=== PATIENT | male | born 1940 | race Caucasian/White ===

== ENCOUNTER 2016-04-18 15:16 | Inpatient (IN) ==
--- NOTE | 2016-04-18 15:46 | Emergency Department Note ---
Disposition Clinical Impression: Pneumothorax on right, Hydrothorax Disposition: Admitted As Inpatient Condition: Fair Time of Disposition: 18:56 General Adult HPI - General Chief complaint: ED Recheck/Abnormal Lab/Rx Stated complaint: Positive Chest Xray From Dr. Quevedo Time Seen by Provider: 04/18/16 15:38 Source: patient, family Mode of arrival: ambulatory Limitations: no limitations Nursing Notes Reviewed: Yes Vital Signs Reviewed: Yes - History of Present Illness HPI Narrative: Patient is a 75-year-old male who presents to [facility] ED with a chief complaint of shortness of breath. States his symptoms have been ongoing for the last 2 weeks or so. He has had upper respiratory type symptoms and his states he coughs so severely at night that he almost passes out. He was seen by pulmonology [address] of his chest was ordered. It would called earlier today by pulmonology to come to the emergency Department since he has a right-sided hydropneumothorax. Patient's oxygen saturations were 95% on room air. He has not on any oxygen at home. He has COPD but has never been a smoker. 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 Onset (ago): week(s) Radiation: non-radiation Pain Severity: mild Pain Scale: 3 Improves with: nothing Worsens with: nothing Associated symptoms: Reports: cough, shortness of breath Treatments Prior to Arrival: none - Related Data Home Medications Medication Instructions Recorded Confirmed Aspirin [Adult Low Dose Aspirin EC] 81 mg PO QAM 03/21/15 04/18/16 Ferrous Sulfate 324 mg PO QPM 03/21/15 04/18/16 Furosemide [Lasix] 40 mg PO BID 03/21/15 04/18/16 Insulin Glargine,Hum.rec.anlog 30 unit SQ HS 03/21/15 04/18/16 [Lantus Solostar] Lisinopril [Zestril] 5 mg PO QAM 03/21/15 04/18/16 Metoprolol [Lopressor] 50 mg PO BID 03/21/15 04/18/16 Potassium Chloride [K-Tab ER] 10 meq PO QAM 03/21/15 04/18/16 Pravastatin Sodium [Pravachol] 80 mg PO QPM 03/21/15 04/18/16 Zinc Acetate [Galzin] 50 mg PO QAM 03/21/15 04/18/16 Glucagon,Human Recombinant 1 mg IJ ONCE PRN 04/18/16 04/18/16 [Glucagon Emergency Kit] Insulin LISPRO [Humalog Kwikpen 10 unit SQ TIDWM 04/18/16 04/18/16 U-100] Metolazone [Zaroxolyn] 2.5 mg PO Q48H 04/18/16 04/18/16 Multivitamin [Multi-Day Vitamins] 1 each PO DAILY 04/18/16 04/18/16 Tramadol HCl [Tramadol HCl] 50 mg PO QID PRN 04/18/16 04/18/16 Allergies Allergy/AdvReac Type Severity Reaction Status Date / Time clopidogrel [From Plavix] AdvReac Itching Verified 04/18/16 15:19 All systems ED: reviewed and negative except as stated. Past Medical History - Past Medical History Attestation: Yes The following information was validated with the patient. Source: patient Medical history: Reports: atrial fibrillation, CHF, COPD, coronary artery disease, diabetes, hyperlipidemia, hypertension, myocardial infarction, valvular heart disease Surgical history: Reports: angioplasty/stent, heart valve replacement, pacemaker /AICD Psychiatric history: Reports: depression - Social History Smoking Status: Never smoker Smokeless Tobacco Status: No Alcohol use: Reports: none Drug use: Reports: none Physical Exam - General Limitations: no limitations General appearance: alert, in no apparent distress - Head Head exam: atraumatic, normocephalic, normal inspection - Eye Eye exam: Present: normal appearance, PERRL, EOMI - ENT ENT exam: normal exam, normal oropharynx, mucous membranes moist - Neck Neck exam: Present: normal inspection, full ROM, trachea midline - Chest Chest inspection: Present: normal inspection, symmetric chest wall rise - Respiratory Respiratory exam: Present: other (Decreased R sided breath sounds) - Cardiovascular Cardiovascular exam: Present: regular rate, normal rhythm, normal heart sounds - Abdominal Exam Abdominal exam: Present: soft, Non-Tender. Absent: tenderness, distention, guarding, rebound, rigidity - Extremities Exam Extremities exam: Present: normal inspection, full ROM. Absent: tenderness, pedal edema - Back Exam Back exam: Present: normal inspection, full ROM. Absent: tenderness - Neurological Exam Neurological exam: Present: alert, oriented X3 - Psychiatric Psychiatric exam: Present: normal affect, normal mood - Skin Skin exam: Present: warm, dry, intact, normal color Course Course Narrative: Patient seen and examined. Right-sided hydropneumothorax. He does have decreased right sided lung sounds. I spoke with certified residential medication aide Dr. Orozco who states that patient needs a chest tube and needs to be admitted to the hospitalist service. He will need a pulmonary consult and probable cardiothoracic surgeon consult after admission. - Reevaluation(s) Reevaluation #1: Right-sided 32-Sud[place] chest tube was placed in the fourth intercostal space, anterior axillary line. Versed and fentanyl was ordered for patient comfort. The patient tolerated procedure well. Over 1 L of straw-colored fluid returned. Postprocedure x-ray ordered. I spoke with hospitalist Dr. jA who has accepted patient for admission. Time: 18:54 Vital Signs Temperature 97.4 F L 04/18/16 15:19 Pulse Rate 73 04/18/16 15:19 Respiratory Rate 20 04/18/16 15:19 Blood Pressure 141/82 04/18/16 15:19 O2 Sat by Pulse Oximetry 95 04/18/16 15:19 Temperature 97.4 F L 04/18/16 15:19 Pulse Rate 70 04/18/16 17:33 Respiratory Rate 14 04/18/16 18:22 Blood Pressure 129/60 04/18/16 18:22 O2 Sat by Pulse Oximetry 98 04/18/16 17:33 Oxygen Delivery Oxygen Delivery Nasal Cannula Procedures - Chest Tube Chest Tube 1 Chest Tube Location: anterior axillary line Size of Tube (cm): 32 Chest Tube Prep: betadine prep, sterile drapes applied Local Anesthetic: lidocaine 1% Amount of Anesthesia Used (mL): 10 Incision Made With: #10 blade Post Procedure: sutured to skin, sterile dressing applied Tube Drainage: fluid Amount of Initial Drainage (cc's): 1,000 Post Procedure CXR?: Yes Patient Tolerated Procedure: Yes Medical Decision Making - Medical Records Medical records reviewed: Yes I reviewed the patient's medical records. - Lab Data Lab results reviewed: Yes I reviewed the patient's lab results. Result diagrams: 04/18/16 15:50 04/18/16 15:50 Lab Results 04/18/16 04/18/16 04/18/16 Range/Units 15:50 15:50 15:50 WBC 6.8 (4.3-11.1) K/mcL RBC 4.12 L (4.19-5.50) M/mcL Hgb 12.8 L (12.9-16.9) g/dL Hct 38.1 (37.5-50.1) % MCV 92.5 (83.0-100.0) fL MCH 31.1 (28.0-33.3) pg MCHC 33.6 (31.6-35.5) g/dL RDW 15.7 H (11.5-14.5) % Plt Count 171 (140-400) K/mcL MPV 10.8 (9.4-12.4) fL Immature Gran % 0.3 (0-4) % Seg Neutrophils % 59.2 % Lymphocytes % 26.7 % Monocytes % 9.2 % Eosinophils % 4.0 % Basophils % 0.6 % Neutrophils # 4.0 (1.6-8.9) K/mcL Lymphocytes # 1.8 (0.6-4.6) K/mcL Monocytes # 0.6 (0.0-1.3) K/mcL Eosinophils # 0.3 (0.0-0.6) K/mcL Basophils # 0.0 (0.0-0.2) K/mcL PT 12.4 H (9.4-12.1) Seconds INR 1.1 APTT 32.9 (26.0-36.0) Seconds Sodium 139 (136-145) mEq/L Potassium 4.5 (3.5-4.5) mEq/L Chloride 102 (98-109) mEq/L Carbon Dioxide 26 (19-29) mEq/L BUN 42 H (8-26) mg/dL Creatinine 1.46 H (0.72-1.25) mg/dL Est GFR ( Amer) 57 L (> 60) Est GFR (Non-Af Amer) 47 L (> 60) BUN/Creatinine Ratio 29 H (6-26) Glucose 116 H (70-99) mg/dL Calculated Osmolality 299 (280-300) Calcium 9.7 (8.6-10.8) mg/dL Troponin I (0-0.03) ng/mL 04/18/16 Range/Units 15:50 WBC (4.3-11.1) K/mcL RBC (4.19-5.50) M/mcL Hgb (12.9-16.9) g/dL Hct (37.5-50.1) % MCV (83.0-100.0) fL MCH (28.0-33.3) pg MCHC (31.6-35.5) g/dL RDW (11.5-14.5) % Plt Count (140-400) K/mcL MPV (9.4-12.4) fL Immature Gran % (0-4) % Seg Neutrophils % % Lymphocytes % % Monocytes % % Eosinophils % % Basophils % % Neutrophils # (1.6-8.9) K/mcL Lymphocytes # (0.6-4.6) K/mcL Monocytes # (0.0-1.3) K/mcL Eosinophils # (0.0-0.6) K/mcL Basophils # (0.0-0.2) K/mcL PT (9.4-12.1) Seconds INR APTT (26.0-36.0) Seconds Sodium (136-145) mEq/L Potassium (3.5-4.5) mEq/L Chloride (98-109) mEq/L Carbon Dioxide (19-29) mEq/L BUN (8-26) mg/dL Creatinine (0.72-1.25) mg/dL Est GFR ( Amer) (> 60) Est GFR (Non-Af Amer) (> 60) BUN/Creatinine Ratio (6-26) Glucose (70-99) mg/dL Calculated Osmolality (280-300) Calcium (8.6-10.8) mg/dL Troponin I 0.02 (0-0.03) ng/mL - Radiology Data Radiology results reviewed: Yes I reviewed the patient's radiology results. - EKG Data EKG #1 EKG attestation: Yes I reviewed and interpreted this EKG. EKG results narrative: EKG done at 1540 shows an electronic atrial paced and ventricular paced rhythm. There appears to be some depression in 3 and aVF no acute ST elevation. Attestation Statement - Attestation Attestation: I examined this patient and my medical decision-making was reviewed with the SLASHER/PA/Advanced Practice Nurse/Resident Physician. I agree with the documented findings, disposition and treatment plan as described except to the extent set forth below. Patient emergency department with an abnormal chest CT. Patient was sent in by his certified residential medication aide because he had a CT scan that showed hydropneumothorax. On exam he has diminished breath sounds on the right side. Hemodynamic stable. Satting well on room air. Plan. Chest tube was placed by Dr. Oakley with my constant supervision. X-ray pending. Patient will be admitted. Patient admitted. Chest tube more inferior than we would like but draining well so we will not reposition. 30 minutes of critical care exclusive of separately billable procedures.
[2016-04-18 15:58] LABS: Basophils % 0.6 %; Eosinophils # 0.3 K/mcL (0.0-0.6); Hematocrit 38.1 % (37.5-50.1); Hemoglobin 12.8 g/dL (12.9-16.9); Immature Granulocytes % 0.3 % (0-4); Lymphocytes # 1.8 K/mcL (0.6-4.6); Lymphocytes % 26.7 %; Mean Corpuscular HGB Conc 33.6 g/dL (31.6-35.5); Mean Corpuscular Hemoglobin 31.1 pg (28.0-33.3); Mean Corpuscular Volume 92.5 fL (83.0-100.0); Mean Platelet Volume 10.8 fL (9.4-12.4); Monocytes # 0.6 K/mcL (0.0-1.3); Monocytes % 9.2 %; Platelet Count 171 K/mcL (140-400); Red Blood Count 4.12 M/mcL (4.19-5.50); Red Cell Distribution Width 15.7 % (11.5-14.5); Segmented Neutrophils % 59.2 %
[2016-04-18 16:11] LABS: Calcium 9.7 mg/dL (8.6-10.8); Potassium 4.5 mEq/L (3.5-4.5)
[2016-04-18] MEDS ORDERED: *HR* FentaNYL (PF) 100 MCG/2 ML VIAL IVP ONE ×2 (16:15→16:16)
[2016-04-18] MEDS ORDERED: *HR* Midazolam HCl 2 MG/2 ML VIAL IVP ONE ×2 (16:16→16:17)
[2016-04-18 16:19] LABS: INR 1.1; Prothrombin Time 12.4 Seconds (9.4-12.1)
[2016-04-18 16:21] LABS: Activated Partial Thrombo Time 32.9 Seconds (26.0-36.0)
--- NOTE | 2016-04-18 20:34 | Internal Med History&Physical ---
<Darren Rosa - Last Filed: 04/18/16 21:55> Date of Encounter: 04/18/16 Time of Encounter: 20:30 Assessment and Plan (1) Hydropneumothorax Current visit: Yes Status: Acute As seen on recent CT chest, patient did have chest tube placed in ER and 1 L straw-colored fluid removed Follow up CXR did demonstrate inferior placement of tube, and recommended pulling back 6 cm Consult pulmonology for tube management, no need adjustment acutely as patient has symptomatically improved and has minimal discomfort Obtain pleural fluid studies including cytology, gram stain/culture, amylase, LDH, protein, trigs Supportive measures with anti-emetics and analgesia Consider cardiothoracic surgery consult if patient desires senior living control with pleurodesis (2) Paroxysmal a-fib Current visit: No Status: Chronic He does have h/o pacemaker, ablation and appendage resection Patient elected not to continue on anticoagulation given episode of GI bleeding Will continue home rate control drug of Metoprolol (3) COPD (chronic obstructive pulmonary disease) Current visit: Yes Status: Chronic Will start on supplemental oxygen; he does not use at home but may try to qualify prior to discharge Initiate breathing treatments and nebulizers as needed Qualifiers: Qualified Code(s): J44.9 - Chronic obstructive pulmonary disease, unspecified (4) Hypertension Current visit: Yes Status: Chronic Blood pressures stable since admission Will hold home Lisinopril for now due to renal insufficiency, but continue Metoprolol Qualifiers: Qualified Code(s): I10 - Essential (primary) hypertension (5) Diastolic CHF Current visit: Yes Status: Chronic Does not appear to be in clinical exacerbation Continue on home dose of Lasix and Metolazone Monitor I/O's, obtain daily weights Qualifiers: Qualified Code(s): I50.30 - Unspecified diastolic (congestive) heart failure (6) CKD (chronic kidney disease) stage 3, GFR 30-59 ml/min Current visit: Yes Status: Chronic Patient is unsure of his baseline kidney dysfunction but states he is making adequate urine Will avoid nephrotoxic agents for now, as Cr does appear slightly elevated that baseline; Cr 1.46, baseline 1.2-1.3 (7) Insulin dependent diabetes mellitus Current visit: Yes Status: Chronic Holding home insulin dose Start on low dose SSI ACHS accuchecks A1c of 6.2 obtained last January (8) DVT prophylaxis Current visit: Yes Status: Acute Heparin 5000 units BID SQ Internal Medicine - H&P: HPI Chief complaint: Shortness of breath Admitted From: Home Plans for Post Hospital Care: Home History of present illness: Mr. Silver is a 75 year old male who presents to the emergency department after being sent in by his packer and carry out, Dr. Orozco, for a hydropneumothorax seen on CAT scan. Patient describes 2 weeks of progressive shortness of breath associated with a cough. He has noticed yellow sputum during this time and has also had chest pain while coughing, to the point where he almost passes out. He states that he has known about his recurrent right pleural effusion for about 6 months, but has never had it drained. He does have a history of COPD but is not on any oxygen or inhalers at home. Of note, he does have a significant cardiac history including [place] s/p 5 stents and mitral valve stenosis that was repaired with bioprosthetic valve replacement. He also has atrial fibrillation and has underwent both ablation and left atrial appendage resection. He states he was previously on Coumadin for 14 months but had an episode of GI bleed and had to stop it. He currently has a pacemaker. Patient states that in the emergency department after having the chest tube placed and 1 L straw-colored fluid removed, he experienced significant relief of his shortness of breath. He denies any fever, nausea, vomiting, diarrhea. Past Med Surg Social Fam HX - Past Medical History Medical history: atrial fibrillation, CHF, COPD, coronary artery disease, diabetes, hyperlipidemia, hypertension, myocardial infarction, valvular heart disease Psychiatric history: depression - Past Surgical History Surgical History: angioplasty/stent, heart valve replacement, pacemaker/AICD - Social History Smoking Status: Never smoker Smokeless Tobacco Status: No Alcohol use: none Drug use: none - Family History Father Living Status: Hx Family Cardiac Disorders: Yes ([place]) Brother Living Status: Still Living Hx Family Cardiac Disorders: Yes Internal Medicine - H&P: Meds Aspirin [Adult Low Dose Aspirin EC] 81 mg PO QAM 03/21/15 [History] Ferrous Sulfate 324 mg PO QPM 03/21/15 [History] Furosemide [Lasix] 40 mg PO BID 03/21/15 [History] Insulin Glargine,Hum.rec.anlog [Lantus Solostar] 30 unit SQ HS 03/21/15 [History ] Lisinopril [Zestril] 5 mg PO QAM 03/21/15 [History] Metoprolol [Lopressor] 50 mg PO BID 03/21/15 [History] Potassium Chloride [K-Tab ER] 10 meq PO QAM 03/21/15 [History] Pravastatin Sodium [Pravachol] 80 mg PO QPM 03/21/15 [History] Zinc Acetate [Galzin] 50 mg PO QAM 03/21/15 [History] Glucagon,Human Recombinant [Glucagon Emergency Kit] 1 mg IJ ONCE PRN 04/18/16 [ History] Insulin LISPRO [Humalog Kwikpen U-100] 10 unit SQ TIDWM 04/18/16 [History] Metolazone [Zaroxolyn] 2.5 mg PO Q48H 04/18/16 [History] Multivitamin [Multi-Day Vitamins] 1 each PO DAILY 04/18/16 [History] Tramadol HCl [Tramadol HCl] 50 mg PO QID PRN 04/18/16 [History] Allergies clopidogrel [From Plavix] Adverse Reaction (Verified 04/18/16 15:19) Itching All Systems PM: A 10-system review of systems was performed and is negative for pertinent findings except as documented above in the HPI. - Constitutional Constitutional: anorexia (loss of appetite), no chills, no fever(s), no night sweats - EENT Eyes: no change in vision, no discharge, no pain, no photophobia Ears: no ear discharge, no ear pain, no tinnitus Nose, mouth and throat: no dysphagia, no nasal discharge, no neck pain, no sore throat - Cardiovascular Cardiovascular ROS IM: dyspnea, dyspnea on exertion, no chest pain, no diaphoresis, no lightheadedness, no palpitations, no syncope - Respiratory Respiratory: cough, dyspnea, excessive phlegm production, pain with cough, no wheezing - Gastrointestinal Gastrointestinal: no abdominal pain, no diarrhea, no hematemesis, no hematochezia, no melena, no nausea, no vomiting - Musculoskeletal Musculoskeletal ROS IM: no numbness, no tingling - Integumentary Integumentary IM: no rash, no unusual bruising - Neurological Neurological ROS: no confusion, no convulsions, no focal weakness, no numbness, no tingling, no tremor(s) - Hematologic/Lymphatic Hematologic/Lymphatic: no easy bruising - Constitutional Vitals: Temp Pulse Resp BP Pulse Ox 97.9 F 69 18 137/73 100 04/18/16 20:07 04/18/16 20:07 04/18/16 20:07 04/18/16 20:07 04/18/16 20:07 General appearance: Present: cooperative, pleasant, no acute distress, answers questions appropriately - Head Head exam: Present: atraumatic, normocephalic - Eye Eye exam: Present: PERRL, conjuntiva pink, sclera anicteric - Neck Neck exam general surgery: Present: supple, trachea midline. Absent: lymphadenopathy - Respiratory Respiratory exam: Present: decreased breath sounds (on right side). Absent: accessory muscle use, rales, rhonchi, wheezes - Cardiovascular Cardiovascular exam: Present: RRR, +S1, +S2. Absent: diastolic murmur, gallop, rubs, systolic murmur - GI/Abdominal GI/Abdominal exam: Present: normal bowel sounds, soft, no peritoneal signs. Absent: distended, tenderness - Extremities Exam Extremities exam: Present: pedal edema (2+ pitting), warm, radial pulses palpable and symetrical. Absent: calf tenderness, cyanotic - Neurological Exam Neurological exam: Present: alert, no focal deficits. Absent: facial droop, speech deficit - Skin Skin exam: Present: dry, intact Internal Med - H&P Results - Labs CBC & Chem 7: 04/18/16 15:50 04/18/16 15:50 <Yovany Parikh - Last Filed: 04/18/16 22:37> Date of Encounter: 04/18/16 All Systems PM: A 10-system review of systems was performed and is negative for pertinent findings except as documented above in the HPI. - Constitutional Vitals: Temp Pulse Resp BP Pulse Ox 97.9 F 69 16 137/73 94 L 04/18/16 20:07 04/18/16 20:07 04/18/16 22:25 04/18/16 20:07 04/18/16 22:25 General appearance: Present: cooperative, pleasant, no acute distress - Eye Eye exam: Present: EOMI, PERRL. Absent: scleral icterus Pupils: Present: normal accommodation - ENT ENT exam: Present: normal exam, normal oropharynx - Neck Neck exam general surgery: Present: full ROM, supple - Expanded Neck Exam Neck exam: Absent: carotid bruit - Respiratory Respiratory exam: Present: decreased breath sounds. Absent: respiratory distress - Cardiovascular Cardiovascular exam: Present: RRR, +S1, +S2. Absent: JVD, systolic murmur - GI/Abdominal GI/Abdominal exam: Present: soft. Absent: tenderness - Extremities Exam Extremities exam: Present: warm. Absent: calf tenderness, joint swelling - Back Exam Back exam: Absent: CVA tenderness (L), CVA tenderness (R) - Neurological Exam Neurological exam: Present: no focal deficits - Psychiatric Psychiatric exam: Present: normal affect, normal mood - Skin Skin exam: Present: dry, warm. Absent: rash Internal Med - H&P Results - Labs CBC & Chem 7: 04/18/16 15:50 04/18/16 15:50 - Diagnostic Studies Chest x-ray Status: image reviewed by me (hydropneumonthorax noted) CT scan - chest Status: image reviewed by me (large hydronpneumothorax noted on today's CT) - Attending Attestation I discussed the patient [place], PMH, ROS, lab data, and exam findings with Dr. Rosa. I then saw and evaluated patient independently as well. He feels much better since his chest tube placement. His only complaint is occasional pain at chest tube insertion site. He denies any fevers, productive cough, chills, or body aches. I requested Dr. Rosa order some plueral fluid analyses. We will also try to obtain cytology. He did have prior CABG and pacer insertion about 18 months ago, which puts him at risk for chylothorax. However, his pleural fluid was straw colored and not milky or bloody upon chest tube placement. Nonetheless, we will check triglyceride level in addition to routine labs, culture, and cytology. We will ask pulmonary to see patient in consult for chest tube management. Other than my comments noted above and exam findings noted, I agree with Dr. Rosa's assessment and plan.
[2016-04-18] MEDS ORDERED: *HR* Dextrose 50 % in Water (Syg) 50 ML SYRINGE IVP PRN (20:53)
[2016-04-18] MEDS ORDERED: Ondansetron ODT 4 MG TAB.RAPDIS SL PRN (20:53)
[2016-04-18] MEDS ORDERED: Acetaminophen 325 MG TABLET PO PRN (20:53)
[2016-04-18] MEDS ORDERED: Naloxone 0.4 MG/ML INJ IVP PRN (20:53)
[2016-04-18] MEDS ORDERED: D5% in Water 1,000 ML IV PRN (20:53)
[2016-04-18] MEDS ORDERED: Dextrose Gel 15 GM PO PRN ×2 (20:53)
[2016-04-18] MEDS: Insulin LISPRO 300 UNITS/3 ML VIAL SQ SCH (21:10)
[2016-04-18] MEDS ORDERED: Albuterol 2.5 MG/3 ML NEBULIZER IH PRN (21:15)
[2016-04-18] MEDS: metOLazone 2.5 MG TABLET PO SCH (21:18)
[2016-04-18] MEDS: *HR* HYDROcodone/Acet 5/325 mg TABLET PO PRN (21:19)
[2016-04-18] MEDS: Budesonide/Formoterol 160/4.5 MDI IH SCH (22:25)
[2016-04-18] MEDS: Ipratropium/Albuterol Neb 3 ML IH SCH (22:25)
[2016-04-18 22:37] LABS: Lactate Dehydrogenase 153 Units/L (159-327); Total Protein 7.4 g/dL (6.0-8.3)
[2016-04-19] MEDS: *HR* Morphine 2 MG/ML SYRINGE IVP PRN ×3 (00:50→18:37)
[2016-04-19] MEDS: Ipratropium/Albuterol Neb 3 ML IH SCH ×4 (03:30→22:00)
[2016-04-19] MEDS: *HR* HYDROcodone/Acet 5/325 mg TABLET PO PRN ×4 (05:02→20:26)
[2016-04-19 05:46] LABS: Basophils % 0.4 %; Eosinophils # 0.2 K/mcL (0.0-0.6); Eosinophils % 2.9 %; Hematocrit 38.3 % (37.5-50.1); Hemoglobin 12.2 g/dL (12.9-16.9); Immature Granulocytes % 0.3 % (0-4); Lymphocytes # 1.8 K/mcL (0.6-4.6); Lymphocytes % 24.7 %; Mean Corpuscular HGB Conc 31.9 g/dL (31.6-35.5); Mean Corpuscular Hemoglobin 29.9 pg (28.0-33.3); Mean Corpuscular Volume 93.9 fL (83.0-100.0); Mean Platelet Volume 10.7 fL (9.4-12.4); Monocytes # 0.6 K/mcL (0.0-1.3); Monocytes % 8.2 %; Neutrophils # 4.7 K/mcL (1.6-8.9); Platelet Count 167 K/mcL (140-400); Red Blood Count 4.08 M/mcL (4.19-5.50); Red Cell Distribution Width 15.6 % (11.5-14.5); Segmented Neutrophils % 63.5 %
[2016-04-19 06:11] LABS: Alanine Aminotransferase 9 Units/L (0-55); Albumin 3.2 g/dL (3.5-5.0); Albumin/Globulin Ratio 0.7 (1.1-2.2); Alkaline Phosphatase 79 Units/L (38-126); Aspartate Amino Transferase 27 Units/L (5-34); BUN/Creatinine Ratio 30 (6-26); Bilirubin,Total 1.2 mg/dL (0.2-1.2); Blood Urea Nitrogen 40 mg/dL (8-26); Calcium 9.3 mg/dL (8.6-10.8); Carbon Dioxide 26 mEq/L (19-29); Chloride 102 mEq/L (98-109); Globulin 4.5 g/dL (2.4-3.5); Glucose 113 mg/dL (70-99); Osmolality,Calculated 299 (280-300); Potassium 4.6 mEq/L (3.5-4.5); Sodium 139 mEq/L (136-145); Total Protein 7.7 g/dL (6.0-8.3); eGFR For African Americans > 60 (> 60); eGFR For Non-African Americans 53 (> 60)
[2016-04-19] MEDS: Insulin LISPRO 300 UNITS/3 ML VIAL SQ SCH ×4 (08:14→22:28)
[2016-04-19] MEDS: *HR* Heparin 5,000 UNIT/ML VIAL SQ SCH ×2 (08:19→18:11)
[2016-04-19] MEDS: Aspirin Enteric Coated 81 MG Tablet PO SCH (08:19)
--- NOTE | 2016-04-19 08:45 | Pulmonology Consult Note ---
Date of Encounter: 04/19/16 Time of Encounter: 08:41 Assessment and Plan (1) Abnormal CT scan, chest Current Visit: Yes Status: Acute I am unable to personally reviewed the chest CT at this time however her the description, a right hydropneumothorax was noted compression of the right lower lobe and right middle lobe as well as small nodular densities were described by the radiologist. The etiology of the right hydropneumothorax at this time is uncertain but differential diagnoses could include an entrapped lung following open heart surgery, an occasion to the bronchus (which seems unlikely), infectious and malignant disease (malignancy also seems unlikely). It best to have cardiothoracic surgery and on evaluation and further treatment since the patient may require thoracotomy. I will attempt to reaccessed the system for personal review of the imaging studies later today. Code(s): R93.8 - Abnormal findings on diagnostic imaging of other specified body structures SNOMED Code(s): 998118038 History of Present Illness Consult date: 04/19/16 Chief complaint: dyspnea History of present illness: The patient is a 75-year-old male admitted to the hospital at the request of his primary care physician for evaluation of progressive breathlessness. In addition to progressive breathlessness the patient is also noted cough productive of secretions. He denied concurrent headache myalgia arthralgia fevers or chills. For further evaluation of his complaints, a chest CT scan to my understanding was obtained through [facility]. The scan revealed a right hydropneumothorax hence the patient was instructed to proceed to the emergency room at [place] for further evaluation. A chest tube was placed into the right hemithorax and a persistent hydropneumothorax was noted. An air leak has been described by the nursing staff and was verified during my evaluation ( expiratory phase only). Pulmonary consultation was requested for evaluation. I reviewed the situation with Dr. Jose David Prather who will also see the patient. I have reviewed the chart and note that this patient although billed as having COPD he is a lifelong nonsmoker. Is not have any significant occupational exposures that would predispose the development of obstructive lung disease. His most significant history is that of cardiovascular disease. He underwent open heart surgery at [facility] in 2013 ultimately included maze procedure mitral valve replacement Ronen-Wisdom valve, placement of biventricular pacemaker. Patient was last hospitalized during the winter of 2015 early part of 2017. There are no chest radiographs dating back to that time for review and comparison to the current chest imaging. Past Med Surg Social Fam HX - Past Medical History Medical history: atrial fibrillation, CHF, COPD, coronary artery disease, diabetes, hyperlipidemia, hypertension, myocardial infarction, valvular heart disease Psychiatric history: depression - Past Surgical History Surgical History: angioplasty/stent, heart valve replacement, pacemaker/AICD - Social History Smoking Status: Never smoker Smokeless Tobacco Status: No Alcohol use: none Drug use: none - Family History Father Living Status: Hx Family Cardiac Disorders: Yes (ND) Brother Living Status: Still Living Hx Family Cardiac Disorders: Yes Medications and Allergies Aspirin [Adult Low Dose Aspirin EC] 81 mg PO QAM 03/21/15 [History] Ferrous Sulfate 324 mg PO QPM 03/21/15 [History] Furosemide [Lasix] 40 mg PO BID 03/21/15 [History] Insulin Glargine,Hum.rec.anlog [Lantus Solostar] 30 unit SQ HS 03/21/15 [History ] Lisinopril [Zestril] 5 mg PO QAM 03/21/15 [History] Metoprolol [Lopressor] 50 mg PO BID 03/21/15 [History] Potassium Chloride [K-Tab ER] 10 meq PO QAM 03/21/15 [History] Pravastatin Sodium [Pravachol] 80 mg PO QPM 03/21/15 [History] Zinc Acetate [Galzin] 50 mg PO QAM 03/21/15 [History] Glucagon,Human Recombinant [Glucagon Emergency Kit] 1 mg IJ ONCE PRN 04/18/16 [ History] Insulin LISPRO [Humalog Kwikpen U-100] 10 unit SQ TIDWM 04/18/16 [History] Metolazone [Zaroxolyn] 2.5 mg PO Q48H 04/18/16 [History] Multivitamin [Multi-Day Vitamins] 1 each PO DAILY 04/18/16 [History] Tramadol HCl [Tramadol HCl] 50 mg PO QID PRN 04/18/16 [History] Allergies clopidogrel [From Plavix] Adverse Reaction (Verified 04/18/16 15:19) Itching All Systems: A 10-system review of systems was performed and is negative for pertinent findings except as documented above in the HPI. - Constitutional Constitutional: as per HPI - Cardiovascular Cardiovascular: as per HPI - Respiratory Respiratory: as per HPI Physical Examination Vital Signs: Vital Signs, Last 4 Hours Temp Pulse Resp BP Pulse Ox 04/19/16 07:50 70 94 L 04/19/16 07:17 97.9 F 70 20 134/63 94 L 04/19/16 04:59 98.0 F 69 18 133/69 95 General appearance: no acute distress Eyes: nonicteric ENT: oropharynx moist Neck: supple Auscultation: right: diminished breath sounds (Right chest tube, air leak noted during expiration and coughing.) Cardiovascular: regular rate and rhythm, other (Paced rhythm healed sternotomy.) Gastrointestinal: normoactive bowel sounds, non-distended Integumentary: normal, other (Venous stasis changes both lower extremities.) Extremities: no cyanosis Musculoskeletal: no deformities normal mental status, non-focal exam Results - Laboratory Findings CBC and BMP: 04/19/16 05:20 04/19/16 05:20 PT/INR, D-dimer PT 12.4 Seconds (9.4-12.1) H 04/18/16 15:50 Abnormal lab findings: Abnormal lab results RBC 4.08 M/mcL (4.19-5.50) L 04/19/16 05:20 Hgb 12.2 g/dL (12.9-16.9) L 04/19/16 05:20 RDW 15.6 % (11.5-14.5) H 04/19/16 05:20 PT 12.4 Seconds (9.4-12.1) H 04/18/16 15:50 Potassium 4.6 mEq/L (3.5-4.5) H 04/19/16 05:20 BUN 40 mg/dL (8-26) H 04/19/16 05:20 Creatinine 1.33 mg/dL (0.72-1.25) H 04/19/16 05:20 Est GFR (Non-Af Amer) 53 (> 60) L 04/19/16 05:20 BUN/Creatinine Ratio 30 (6-26) H 04/19/16 05:20 Glucose 113 mg/dL (70-99) H 04/19/16 05:20 POC Glucose 91 (58-89) H 04/18/16 20:33 Lactate Dehydrogenase 153 Units/L (159-327) L 04/18/16 22:16 Albumin 3.2 g/dL (3.5-5.0) L 04/19/16 05:20 Globulin 4.5 g/dL (2.4-3.5) H 04/19/16 05:20 Albumin/Globulin Ratio 0.7 (1.1-2.2) L 04/19/16 05:20 - Diagnostic Findings Chest x-ray: image reviewed - Clinical Findings Intake & Output: Intake & Output 04/18/16 04/19/16 04/19/16 23:59 07:59 15:59 Intake Total 200 / 200 Output Total 225 / 225 595 / 595 Balance -225 / -225 -395 / -395 Weight 96.6 kg 96.8 kg Consult Discharge Plan - Plan Referrals: Rambo Lama [Primary Care Provider] -
--- NOTE | 2016-04-19 10:05 | Cardiothoracic Consult Note ---
Date of Encounter: 04/19/16 Time of Encounter: 10:01 Assessment and Plan (1) Hydropneumothorax Current Visit: Yes Status: Acute The assessment and plan as outlined above was discussed with the patient and/or family members who expressed understanding and agreement. All questions were answered. The patient presented with a right hydropneumothorax. This is most likely due to congestive heart failure. I would check an echocardiogram, as it is been 3 months since his last cardiac echo. Another possibility would be mesothelioma, as the patient does have a history of an exposure to this asbestos. However, there are no signs of this on CT scan. The lung is stiff and may be difficult to reexpand. I would suck on the chest tube over the weekend. If the lung doesn' t reexpand, the patient could have talc inserted. However, if the lung does not reexpand his only option would be decortication. The patient states that he is adamantly opposed to further surgery. - History of Present Illness History of present illness: Mr. Silver is a 75 year old male History of present illness. Patient is a 75-year-old gentleman with a long cardiac history who presented with shortness of breath. CT scan revealed a right hydropneumothorax. A chest tube was inserted in the emergency room. This is drained 1600 mL. Chest x-ray done after this reveals that the fluid is gone. The chest tube is low but is in the pleural space. The lung has not reexpanded, but probably is stiff from prolonged collapse. Past medical history is notable for COPD. He did have open heart surgery at [facility] in 2013. Apparently this was coronary artery bypass grafting and a mitral valve replacement or ring. Shortly after this, he had placement of a pacemaker and defibrillator. He does have a history of atrial fibrillation and congestive heart failure. He does have diabetes on insulin. He also has hyperlipidemia and hypertension. He is also been treated for depression. He has no known allergies. Medications include insulin, but he is not on any blood thinner. Social history. He lives in [facility] with his , who is in good health. Does not smoke and does not drink. Family history is positive for coronary artery disease. Review of systems is notable for peripheral edema in his legs. Past Med Surg Social Fam HX - Past Medical History Medical history: atrial fibrillation, CHF, COPD, coronary artery disease, diabetes, hyperlipidemia, hypertension, myocardial infarction, valvular heart disease Psychiatric history: depression - Past Surgical History Surgical History: angioplasty/stent, heart valve replacement, pacemaker/AICD - Social History Smoking Status: Never smoker Smokeless Tobacco Status: No Alcohol use: none Drug use: none - Family History Father Living Status: Hx Family Cardiac Disorders: Yes ([place]) Brother Living Status: Still Living Hx Family Cardiac Disorders: Yes Medications and Allergies Aspirin [Adult Low Dose Aspirin EC] 81 mg PO QAM 03/21/15 [History] Ferrous Sulfate 324 mg PO QPM 03/21/15 [History] Furosemide [Lasix] 40 mg PO BID 03/21/15 [History] Insulin Glargine,Hum.rec.anlog [Lantus Solostar] 30 unit SQ HS 03/21/15 [History ] Lisinopril [Zestril] 5 mg PO QAM 03/21/15 [History] Metoprolol [Lopressor] 50 mg PO BID 03/21/15 [History] Potassium Chloride [K-Tab ER] 10 meq PO QAM 03/21/15 [History] Pravastatin Sodium [Pravachol] 80 mg PO QPM 03/21/15 [History] Zinc Acetate [Galzin] 50 mg PO QAM 03/21/15 [History] Glucagon,Human Recombinant [Glucagon Emergency Kit] 1 mg IJ ONCE PRN 04/18/16 [ History] Insulin LISPRO [Humalog Kwikpen U-100] 10 unit SQ TIDWM 04/18/16 [History] Metolazone [Zaroxolyn] 2.5 mg PO Q48H 04/18/16 [History] Multivitamin [Multi-Day Vitamins] 1 each PO DAILY 04/18/16 [History] Tramadol HCl [Tramadol HCl] 50 mg PO QID PRN 04/18/16 [History] Allergies clopidogrel [From Plavix] Adverse Reaction (Verified 04/18/16 15:19) Itching All Systems Review: A 10-system review of systems was performed and is negative for pertinent findings except as documented above in the HPI. Physical Examination Vital Signs, Last 4 Hours Temp Pulse Resp BP Pulse Ox 04/19/16 07:50 70 94 L 04/19/16 07:17 97.9 F 70 20 134/63 94 L He is blind in his right eye. No oral lesions. Neck is supple. No thyromegaly or carotid bruits. Lungs have decreased breath sounds on the right side. He does have a chest tube in place which is drained 1600 mL of serosanguineous fluid. It does have a small air leak with cough. Heart is in an irregular rate and rhythm. He does have a 2/6 systolic murmur. His incision is healing well without signs of infection and the sternum is stable. Abdomen is benign. No tenderness rebound or guarding. Extremities have 2+ edema. 1+ pulses. Cranial nerves are intact, except for blindness in his right eye. Motor and sensory intact. Results 04/19/16 05:20 04/19/16 05:20 Lab Results, Last 24 hours 04/19/16 04/19/16 05:20 05:20 WBC 7.5 Hgb 12.2 L Hct 38.3 Plt Count 167 Sodium 139 Potassium 4.6 H Chloride 102 Carbon Dioxide 26 BUN 40 H Creatinine 1.33 H Glucose 113 H Calcium 9.3 Total Bilirubin 1.2 AST 27 ALT 9 Alkaline Phosphatase 79 Consult Discharge Plan - Plan Referrals: Amauri Lama MD [Partnered Physician] - 04/25/16 11:30 am
[2016-04-19] MEDS: Budesonide/Formoterol 160/4.5 MDI IH SCH ×2 (10:50→22:00)
--- NOTE | 2016-04-19 13:12 | Internal Med Progress Note ---
Date of Encounter: 04/19/16 Time of Encounter: 11:30 - Assessment and plan (1) Hydropneumothorax Current Visit: Yes Status: Acute Assessment and plan: Chronic on chart review NO re-expansion possibly from chronicity Send pleural fluid work up as lab/pathology reports that did not receive specimen Follow ECHO Send sputum culture Start patient on po Levaquin, he has cough with yellow phlegm and a history of COPD Follow work up Pain control Thoracic surgery and Pulmonolgy eval appreciated (2) CKD (chronic kidney disease) stage 3, GFR 30-59 ml/min Current Visit: Yes Status: Chronic Assessment and plan: Slight superimposed renal insufficiency GFR and Cr improved this morning from prior Continue to hold Lisinopril Continue home meds Avoid nephrotoxins (3) COPD (chronic obstructive pulmonary disease) Current Visit: Yes Status: Chronic Assessment and plan: Chronic stable, no wheezing on exam Duonebs prn O2 by [place] Qualifiers: COPD type: unspecified COPD Qualified Code(s): J44.9 - Chronic obstructive pulmonary disease, unspecified (4) Diastolic CHF Current Visit: Yes Status: Chronic Assessment and plan: Does not appear to be in clinical exacerbation Continue on home dose of Lasix and Metolazone Monitor I/O's, obtain daily weights Qualifiers: Congestive heart failure chronicity: chronic Qualified Code(s): I50.32 - Chronic diastolic (congestive) heart failure (5) Hypertension Current Visit: Yes Status: Chronic Qualifiers: Hypertension type: essential hypertension Qualified Code(s): I10 - Essential (primary) hypertension (6) Insulin dependent diabetes mellitus Current Visit: Yes Status: Chronic Assessment and plan: Continue SSI ACHS accuchecks A1c of 6.2 01/2016 (7) CAD (coronary artery disease) Current Visit: Yes Status: Chronic Assessment and plan: Chronic, stable, no Chest pain Continue home meds Qualifiers: Coronary Disease-Associated Artery/Lesion type: [place] artery [place] vs. transplanted heart: [place] heart Associated angina: without angina Qualified Code(s): I25.10 - Atherosclerotic heart disease of [place] coronary artery without angina pectoris (8) Paroxysmal a-fib Current Visit: Yes Status: Chronic Assessment and plan: Not on anticoagulation due to GI bleed (9) S/P MVR (mitral valve replacement) Current Visit: Yes Status: Chronic - Subjective Interval history: 75 Y/O M DNR-CCA-DNI Initial encounter Seen at bedside with spouse Patient with extensive cardiac history-Afib s/p AICD, CHFpEF, CAD s/pCABG 2013, s/p MVreplacement He also has COPD, CK D stage III, diabetes mellitus complaining complicated by nephropathy. Patient is admitted for management of incidentally discovered right hydropneumothorax. The patient endorses several days history of cough productive of yellow sputum previously. He denies fever or chills, sick contacts, syndromes. He has had shortness of breath with exertion. Since presentation patient has had chest tube placement, with no lung expansion. Thoracic surgery consulted this morning, recommendations are noted. Pulmonolgy has also been consulted Of note, patient adamantly refuses surgery. EMR review reveals no leukocytosis, hemoglobin stable at baseline, creatinine slightly elevated above baseline, liver function test is within normal limit. Of note, pleural fluid has not been received by the laboratory for work up Blood culture was sent on presentation - Constitutional Vitals: Temp Pulse Resp BP Pulse Ox 98.6 F 70 18 137/66 96 04/19/16 11:13 04/19/16 12:54 04/19/16 11:13 04/19/16 11:13 04/19/16 11:13 General appearance: Present: cooperative, A&O X 3, pleasant, no acute distress - Head Head exam: Present: atraumatic, normocephalic - Eye Eye exam: Present: PERRL, conjuntiva pink, sclera anicteric Pupils: Present: PERRL - Neck Neck exam general surgery: Present: supple, trachea midline. Absent: lymphadenopathy - Respiratory Respiratory exam: Present: decreased breath sounds (Right lung zone. Posterior chest tube). Absent: accessory muscle use, rales, rhonchi, wheezes Additional comments: Chest wall scar. PCM pocket clean , no hyperemia - Cardiovascular Cardiovascular exam: Present: RRR, +S1, +S2. Absent: diastolic murmur, gallop, rubs, systolic murmur - GI/Abdominal GI/Abdominal exam: Present: normal bowel sounds, soft, no peritoneal signs. Absent: distended, tenderness - Extremities Exam Extremities exam: Present: pedal edema (Trace, bilaterally), warm, radial pulses palpable and symetrical. Absent: calf tenderness, cyanotic Additional comments: Chronic venous stasis changes - Neurological Exam Neurological exam: Present: CN II-XII intact, oriented X3, no focal deficits. Absent: pronater drift, facial droop, speech deficit - Skin Skin exam: Present: dry, intact Internal Medicine: Result - Labs CBC & Chem 7: 04/19/16 05:20 04/19/16 05:20 Labs: Short CBC 04/19/16 Range/Units 05:20 WBC 7.5 (4.3-11.1) K/mcL Hgb 12.2 L (12.9-16.9) g/dL Hct 38.3 (37.5-50.1) % Plt Count 167 (140-400) K/mcL Neutrophils # 4.7 (1.6-8.9) K/mcL BMP 04/19/16 05:20 Sodium 139 Potassium 4.6 H Chloride 102 Carbon Dioxide 26 BUN 40 H Creatinine 1.33 H Glucose 113 H Calcium 9.3 Liver Function 04/19/16 Range/Units 05:20 Total Bilirubin 1.2 (0.2-1.2) mg/dL AST 27 (5-34) Units/L ALT 9 (0-55) Units/L Alkaline Phosphatase 79 (38-126) Units/L Albumin 3.2 L (3.5-5.0) g/dL - ABG Interpretation ABG results: PT/INR, D-dimer PT 12.4 Seconds (9.4-12.1) H 04/18/16 15:50 Consult Discharge Plan - Plan Referrals: Amauri Lama MD [Partnered Physician] - 04/25/16 11:30 am
[2016-04-19] MEDS: levoFLOXacin 750 MG TABLET PO SCH (16:09)
--- NOTE | 2016-04-19 17:19 | Electrocardiograph Report ---
[place] [id number] Test Date: 2016-04-18 Pat Name: Iam Silver Department: [id number] Room: 2N09 Gender: M [employer] Consultant: : 1940 Requested By: Gracy Oakley Order Number: [id number] Reading MD: Karen Gonzales Measurements Intervals [place] Rate: 72 P: 173 MA: 173 QRS: 133 QRSD: 166 T: 116 QT: 487 QTc: 510 Interpretive Statements ELECTRONIC ATRIAL PACEMAKER ELECTRONIC VENTRICULAR PACEMAKER Electronically Signed On 04-19-2016 17:17:31 EST by Karen Gonzales
[2016-04-19] MEDS: Furosemide 20 MG TABLET PO SCH (20:26)
[2016-04-20] MEDS: Ipratropium/Albuterol Neb 3 ML IH SCH ×4 (04:49→20:29)
[2016-04-20 06:21] LABS: Basophils % 0.1 %; Eosinophils # 0.2 K/mcL (0.0-0.6); Eosinophils % 2.7 %; Hematocrit 37.3 % (37.5-50.1); Hemoglobin 12.5 g/dL (12.9-16.9); Immature Granulocytes % 0.4 % (0-4); Lymphocytes # 1.5 K/mcL (0.6-4.6); Lymphocytes % 21.9 %; Mean Corpuscular HGB Conc 33.5 g/dL (31.6-35.5); Mean Corpuscular Volume 92.6 fL (83.0-100.0); Mean Platelet Volume 10.6 fL (9.4-12.4); Monocytes # 0.5 K/mcL (0.0-1.3); Monocytes % 6.7 %; Neutrophils # 4.8 K/mcL (1.6-8.9); Platelet Count 151 K/mcL (140-400); Red Blood Count 4.03 M/mcL (4.19-5.50); Red Cell Distribution Width 15.3 % (11.5-14.5); Segmented Neutrophils % 68.2 %
[2016-04-20 06:35] LABS: BUN/Creatinine Ratio 32 (6-26); Blood Urea Nitrogen 40 mg/dL (8-26); Calcium 9.2 mg/dL (8.6-10.8); Carbon Dioxide 24 mEq/L (19-29); Chloride 101 mEq/L (98-109); Glucose 147 mg/dL (70-99); Osmolality,Calculated 300 (280-300); Sodium 139 mEq/L (136-145); eGFR For African Americans > 60 (> 60); eGFR For Non-African Americans 56 (> 60)
[2016-04-20 06:39] LABS: Potassium 4.4 mEq/L (3.5-4.5)
[2016-04-20] MEDS: Aspirin Enteric Coated 81 MG Tablet PO SCH (07:37)
[2016-04-20] MEDS: Furosemide 20 MG TABLET PO SCH ×2 (07:37→17:05)
[2016-04-20] MEDS: *HR* Heparin 5,000 UNIT/ML VIAL SQ SCH ×2 (07:37→18:48)
[2016-04-20] MEDS: Insulin LISPRO 300 UNITS/3 ML VIAL SQ SCH ×4 (07:48→21:51)
[2016-04-20] MEDS: *HR* HYDROcodone/Acet 5/325 mg TABLET PO PRN ×2 (09:20→17:07)
[2016-04-20 09:49] LABS: Glucose,Pleural Fluid 103 mg/dL (No Ref Range)
[2016-04-20 09:51] LABS: RBC,Pleural Fluid 0.017 M/mcL
[2016-04-20 09:53] LABS: Appearance of Pleural Fl Cloudy (Clear); Total Protein,Pleural Fluid 2.5 g/dL (No Ref Range)
[2016-04-20] MEDS: Budesonide/Formoterol 160/4.5 MDI IH SCH ×2 (09:53→20:29)
--- NOTE | 2016-04-20 09:53 | Internal Med Progress Note ---
Date of Encounter: 04/20/16 Time of Encounter: 09:50 - Assessment and plan (1) Hydropneumothorax Current Visit: Yes Status: Acute Assessment and plan: Chronic on chart review Follow pleural fluid work up as lab/pathology reports that did not receive specimen Follow ECHO, stated done but not yet reported Sputum culture and pleural fluid culture no growth Start patient on po Levaquin, he has cough with yellow phlegm and a history of COPD Pain control Thoracic surgery and Pulmonolgy eval appreciated (2) CKD (chronic kidney disease) stage 3, GFR 30-59 ml/min Current Visit: Yes Status: Chronic Assessment and plan: Slight superimposed renal insufficiency GFR and Cr improved this morning from prior Continue to hold Lisinopril Continue home meds Avoid nephrotoxins (3) COPD (chronic obstructive pulmonary disease) Current Visit: Yes Status: Chronic Assessment and plan: Chronic stable, no wheezing on exam Duonebs prn O2 by [place] Qualifiers: COPD type: unspecified COPD Qualified Code(s): J44.9 - Chronic obstructive pulmonary disease, unspecified (4) Diastolic CHF Current Visit: Yes Status: Chronic Assessment and plan: Does not appear to be in clinical exacerbation Continue on home dose of Lasix and Metolazone Monitor I/O's, obtain daily weights Qualifiers: Congestive heart failure chronicity: chronic Qualified Code(s): I50.32 - Chronic diastolic (congestive) heart failure (5) Hypertension Current Visit: Yes Status: Chronic Assessment and plan: Controlled on current meds, continue same Qualifiers: Hypertension type: essential hypertension Qualified Code(s): I10 - Essential (primary) hypertension (6) Insulin dependent diabetes mellitus Current Visit: Yes Status: Chronic Assessment and plan: Continue SSI ACHS accuchecks A1c of 6.2 01/2016 (7) CAD (coronary artery disease) Current Visit: Yes Status: Chronic Assessment and plan: Chronic, stable, no Chest pain Continue home meds Qualifiers: Coronary Disease-Associated Artery/Lesion type: [place] artery [place] vs. transplanted heart: [place] heart Associated angina: without angina Qualified Code(s): I25.10 - Atherosclerotic heart disease of [place] coronary artery without angina pectoris (8) Paroxysmal a-fib Current Visit: Yes Status: Chronic Assessment and plan: Not on anticoagulation due to GI bleed (9) S/P MVR (mitral valve replacement) Current Visit: Yes Status: Chronic - Subjective Interval history: 75 Y/O M DNR-CCA-DNI Patient with extensive PMH-Afib s/p AICD, CHFpEF, CAD s/pCABG 2013, s/p MVreplacement, COPD, CK D stage III, diabetes mellitus complaining complicated by nephropathy. On admission for hydropneumothorax s/p chest tube placement, RLL pneumonia Seen at bedside Denies new complains Reports improvement in cough and chest pain Of note, pleural fluid will be sent today as it wasn't sent yesterday Right wall chest rube connected to suction, draining serous fluid Output since admission >500cc patient remains afebrile, blood and sputum culture prelim negative CXR today shows mild improvement vs stable pneumothorax - Constitutional Vitals: Temp Pulse Resp BP Pulse Ox 97.6 F 69 16 141/64 96 04/20/16 07:30 04/20/16 07:30 04/20/16 07:30 04/20/16 07:30 04/20/16 07:30 General appearance: Present: cooperative, A&O X 3, pleasant, no acute distress - Head Head exam: Present: atraumatic, normocephalic - Eye Eye exam: Present: PERRL, conjuntiva pink, sclera anicteric Pupils: Present: PERRL - Neck Neck exam general surgery: Present: supple, trachea midline. Absent: lymphadenopathy - Respiratory Additional comments: Diminished breath sounds on the right, left lung CTA - Cardiovascular Cardiovascular exam: Present: irregular rhythm, +S1, +S2. Absent: systolic murmur, tachycardia - GI/Abdominal GI/Abdominal exam: Present: normal bowel sounds, soft, no peritoneal signs. Absent: distended, tenderness - Extremities Exam Extremities exam: Present: warm, radial pulses palpable and symetrical. Absent : calf tenderness, cyanotic, pedal edema - Neurological Exam Neurological exam: Present: CN II-XII intact, oriented X3, no focal deficits. Absent: pronater drift, facial droop, speech deficit - Skin Skin exam: Present: dry, intact Internal Medicine: Result - Labs CBC & Chem 7: 04/20/16 06:02 04/20/16 06:02 Labs: Short CBC 04/20/16 Range/Units 06:02 WBC 7.0 (4.3-11.1) K/mcL Hgb 12.5 L (12.9-16.9) g/dL Hct 37.3 L (37.5-50.1) % Plt Count 151 (140-400) K/mcL Neutrophils # 4.8 (1.6-8.9) K/mcL BMP 04/20/16 06:02 Sodium 139 Potassium 4.4 Chloride 101 Carbon Dioxide 24 BUN 40 H Creatinine 1.26 H Glucose 147 H Calcium 9.2 - ABG Interpretation ABG results: PT/INR, D-dimer PT 12.4 Seconds (9.4-12.1) H 04/18/16 15:50 - Impressions Impressions Chest X-Ray 04/20/16 00:01 IMPRESSION: Pneumothorax of right lateral lung base similar to minimally decreased in size. D/ / Lambert Borden MD / Lambert Borden MD Interpreting Provider: Lambert Borden MD Consult Discharge Plan - Plan Referrals: Amauri Lama MD [Partnered Physician] - 04/25/16 11:30 am
--- NOTE | 2016-04-20 10:25 | Cardiothoracic Progress Note ---
Date of Encounter: 04/20/16 Time of Encounter: 10:23 - Assessment and plan (1) Hydropneumothorax Current Visit: Yes Status: Acute We will continue chest tube suction throughout the weekend. Hopefully, the long we'll totally reexpand. - Subjective Interval history: The patient states that his cough and shortness of breath are improved. Vital Signs, Last 4 Hours Temp Pulse Resp BP Pulse Ox 04/20/16 07:30 97.6 F 69 16 141/64 96 Oxgyen Flow Rate Oxygen Flow Rate (LPM) 0 Clinical Data, last 8 Hours Output, Chest Tube Drainage 25 Amount [Right Upper] Output, Chest Tube Drainage 30 Amount [Right Upper] Output, Urine Amount 300 Output, Urine Amount 200 Output, Urine Amount 250 Weight 04/18/16 04/19/16 04/20/16 23:59 23:59 23:59 Weight 96.6 kg 96.8 kg 95.6 kg Lungs are clear to percussion and auscultation. Heart is in a paced rhythm. The chest tube continues to drain. Chest x-ray reveals improved aeration of the right lung, but there is still collapse of the right lower lobe. - Labs 04/20/16 06:02 04/20/16 06:02 Lab Results, Last 24 hours 04/20/16 04/20/16 06:02 06:02 WBC 7.0 Hgb 12.5 L Hct 37.3 L Plt Count 151 Sodium 139 Potassium 4.4 Chloride 101 Carbon Dioxide 24 BUN 40 H Creatinine 1.26 H Glucose 147 H Calcium 9.2 Consult Discharge Plan - Plan Referrals: Amauri Lama MD [Partnered Physician] - 04/25/16 11:30 am
[2016-04-20] MEDS: *HR* Morphine 2 MG/ML SYRINGE IVP PRN (12:36)
--- NOTE | 2016-04-20 20:40 | ECHO - Doppler Report ---
Echocardiogram Name: Iam Silver Date of Study: 04/20/2016 Date: 1940 Ht: 70.0 in Medical Record#: [id number] Age: 75 Wt: 210.0 lb Gender: Male BSA: 2.13 Order #: [id number] Location: [facility] Room #: 2N9 Reading Physician: Jd Moralse MD, [facility] Profile Trimmer: Amie Cruz Ordering Physician: Theron Prather MD Primary Physician: Amauri Lama MD Indications: Heart failure Impressions: LVEF 50%. Diastolic dysfunction present, degree unspecified No pulmonary hypertension. Mild perivalvular mitral regurgitation. Mean transmitral gradient is mean 4mmHg peak 13mmHg mmHg likely normal for prosthetic valve. Left Ventricular Wall Motion: Rest Echo Findings All wall segments showed normal motion. Findings: Study Quality * Technically adequate exam. Right Ventricle * Normal right ventricular structure and function. Aorta * Normally sized aortic root. Pericardium * The pericardium appears normal. Pulmonic Valve * Pulmonic valve is not well visualized. * No pulmonic stenosis. * No pulmonic regurgitation. Tricuspid Valve * No tricuspid stenosis. * Trace tricuspid regurgitation. * Estimated RVSP is 17 mmHg. * Estimated RA pressure is 3-5 mmHg. * No pulmonary hypertension. Mitral Valve * Prosthetic valve present * Mild perivalvular mitral regurgitation. * Mean transmitral gradient is mean 4mmHg peak 13mmHg mmHg likely normal for prosthetic valve. Left Ventricle * Diastolic dysfunction, NOS * LVEF 50%. Aortic Valve * No aortic stenosis. * No aortic regurgitation. * Aortic valve not well visualized. IVC * The IVC is not well evaluated. Interatrial Septum * Interatrial septum not well evaluated. Right Atrium * Right atrium is not well visualized. Left Atrium * Severely dilated left atrium. History Hypertension Diabetes Family History of CAD History of CAD/PTCA Myocardial Infarction Coronary Artery Bypass Graft Congestive Heart Failure Pacer/ICD Implant Valvular Disease Valve Replacement MV Prosthesis Biologic 02/12/2016 a Previous Echo was performed. Measurements: BP: 137/ 76 2D Normal Values RVIDd: 3.50 cm <2.7 cm IVSd: 1.10 cm 0.6 - 1.0 cm LVIDd: 5.90 cm 3.7 - 5.6 cm LVPWd: 1.30 cm 0.6 - 1.1 cm LVIDs: 4.20 cm 1.5 - 3.6 cm AO: 2.80 cm < 4.0 cm LA: 5.30 cm 2.0 - 4.0cm %FS: 28.80 cm >25 % LA volume: Mitral Valve Peak Velocity 1.81 m/sec Mean Velocity:.87 m/sec Peak Grad:13.00 mmHg Mean Grad:4.00 mmHg Pressure Time:107.00 msec Valve Area:2.06 cm2 Peak E:1.04 m/sec Peak E' Lat Hernán:4.44 cm/s Peak E' Med Hernán:3.9 cm/s E/E' Lat Ratio:23.4 E/E' Med Ratio:26.7 Tricuspid Valve TV Regurg Peak Grad: 17.00mmHg TV Regurg Peak Hernán: 2.06m/sec Updated by Jd Morales MD, [facility] on 04/20/2016 8:26:16 PM electronically signed on 04/20/2016 8:34:55 PM with status of Final Wall Motion Samuels: 1=Normal, 2=Hypokinesis, 3=Akinesis, 4=Dyskinesis, 5=Aneurysmal, 6=Hyperkinetic, X=Not Visualized (Blank)=Missing
[2016-04-20] MEDS: metOLazone 2.5 MG TABLET PO SCH (21:50)
[2016-04-21] MEDS: *HR* HYDROcodone/Acet 5/325 mg TABLET PO PRN ×3 (01:18→18:19)
[2016-04-21] MEDS: Ipratropium/Albuterol Neb 3 ML IH SCH ×4 (03:51→22:52)
[2016-04-21] MEDS: *HR* Heparin 5,000 UNIT/ML VIAL SQ SCH ×2 (06:27→18:19)
[2016-04-21 06:41] LABS: Basophils % 0.3 %; Eosinophils # 0.2 K/mcL (0.0-0.6); Eosinophils % 2.1 %; Hematocrit 38.1 % (37.5-50.1); Hemoglobin 12.6 g/dL (12.9-16.9); Immature Granulocytes % 0.4 % (0-4); Lymphocytes # 1.7 K/mcL (0.6-4.6); Lymphocytes % 22.6 %; Mean Corpuscular HGB Conc 33.1 g/dL (31.6-35.5); Mean Corpuscular Hemoglobin 30.6 pg (28.0-33.3); Mean Corpuscular Volume 92.5 fL (83.0-100.0); Mean Platelet Volume 11.2 fL (9.4-12.4); Monocytes # 0.5 K/mcL (0.0-1.3); Monocytes % 6.6 %; Platelet Count 169 K/mcL (140-400); Red Blood Count 4.12 M/mcL (4.19-5.50); Red Cell Distribution Width 15.1 % (11.5-14.5)
[2016-04-21 07:02] LABS: Calcium 9.5 mg/dL (8.6-10.8); Potassium 4.1 mEq/L (3.5-4.5)
[2016-04-21] MEDS: Aspirin Enteric Coated 81 MG Tablet PO SCH (08:14)
[2016-04-21] MEDS: Furosemide 20 MG TABLET PO SCH ×2 (08:15→16:55)
[2016-04-21] MEDS ORDERED: 0.9 % Sodium Chloride 500 ML IVC ONE (08:25)
[2016-04-21] MEDS: Insulin LISPRO 300 UNITS/3 ML VIAL SQ SCH ×4 (08:39→21:39)
--- NOTE | 2016-04-21 09:09 | Cardiothoracic Progress Note ---
Date of Encounter: 04/21/16 Time of Encounter: 09:05 - Assessment and plan (1) Hydropneumothorax Current Visit: Yes Status: Acute We will continue chest tube suction, but it appears as if the lung will not fully reexpand. I did discuss possible surgery with the patient. This would include right thoracotomy with decortication of the lung. He would also have mechanical pleurodesis as well as chemical pleurodesis and insertion of 2 large bore chest tubes. This will be considered. He wishes to discuss it with his and let us know. Risks of surgery include , infection, myocardial infarction, stroke, renal or respiratory failure, pneumonia and recurrent effusion as well as pneumothorax. He will let us know. - Subjective Interval history: The patient had some cough last night after a breathing treatment. He is on cough medicine. Vital Signs, Last 4 Hours Temp Pulse Resp BP Pulse Ox 04/21/16 07:42 97.7 F 72 16 132/66 93 L Oxgyen Flow Rate Oxygen Flow Rate (LPM) 0 Clinical Data, last 8 Hours Output, Chest Tube Drainage 30 Amount [Right Upper] Output, Chest Tube Drainage 30 Amount [Right Upper] Output, Urine Amount 100 Weight 04/19/16 04/20/16 04/21/16 23:59 23:59 23:59 Weight 96.8 kg 95.6 kg 93.3 kg Lungs have decreased breath sounds at the right base. Chest tube drainage is minimal. Heart is in a paced rhythm. Chest x-ray reveals that the pleural fluid is gone. The right middle and lower lobes are collapsed and are not reexpanded. Echocardiogram revealed ejection fraction of 50%. The mitral valve looks good. - Labs 04/21/16 05:29 04/21/16 05:29 Lab Results, Last 24 hours 04/21/16 04/21/16 05:29 05:29 WBC 7.3 Hgb 12.6 L Hct 38.1 Plt Count 169 Sodium 137 Potassium 4.1 Chloride 99 Carbon Dioxide 27 BUN 46 H Creatinine 1.60 H Glucose 140 H Calcium 9.5 Consult Discharge Plan - Plan Referrals: Amauri Lama MD [Partnered Physician] - 04/25/16 11:30 am
[2016-04-21] MEDS: Budesonide/Formoterol 160/4.5 MDI IH SCH ×2 (09:50→22:52)
--- NOTE | 2016-04-21 10:47 | Internal Med Progress Note ---
Date of Encounter: 04/21/16 Time of Encounter: 10:44 - Assessment and plan (1) Hydropneumothorax Current Visit: Yes Status: Acute Assessment and plan: Chronic on chart review Sputum culture and pleural fluid culture no growth Continue po Levaquin for bronchitis Pain control ECHO LVEF 50% Thoracic surgery and Pulmonolgy eval appreciated (2) CKD (chronic kidney disease) stage 3, GFR 30-59 ml/min Current Visit: Yes Status: Chronic Assessment and plan: Slight superimposed renal insufficiency GFR and Cr improved this morning from prior Continue to hold Lisinopril Continue home meds Avoid nephrotoxins (3) COPD (chronic obstructive pulmonary disease) Current Visit: Yes Status: Chronic Assessment and plan: Chronic stable, no wheezing on exam Duonebs prn Levoflox O2 by [place] Qualifiers: COPD type: unspecified COPD Qualified Code(s): J44.9 - Chronic obstructive pulmonary disease, unspecified (4) Diastolic CHF Current Visit: Yes Status: Chronic Assessment and plan: Does not appear to be in clinical exacerbation Continue on home dose of Lasix and Metolazone Monitor I/O's, obtain daily weights Qualifiers: Congestive heart failure chronicity: chronic Qualified Code(s): I50.32 - Chronic diastolic (congestive) heart failure (5) Hypertension Current Visit: Yes Status: Chronic Assessment and plan: Controlled on current meds, continue same Qualifiers: Hypertension type: essential hypertension Qualified Code(s): I10 - Essential (primary) hypertension (6) Insulin dependent diabetes mellitus Current Visit: Yes Status: Chronic Assessment and plan: Continue SSI ACHS accuchecks A1c of 6.2 01/2016 (7) CAD (coronary artery disease) Current Visit: Yes Status: Chronic Assessment and plan: Chronic, stable, no Chest pain Continue home meds Qualifiers: Coronary Disease-Associated Artery/Lesion type: [place] artery [place] vs. transplanted heart: [place] heart Associated angina: without angina Qualified Code(s): I25.10 - Atherosclerotic heart disease of [place] coronary artery without angina pectoris (8) Paroxysmal a-fib Current Visit: Yes Status: Chronic Assessment and plan: Not on anticoagulation due to GI bleed (9) S/P MVR (mitral valve replacement) Current Visit: Yes Status: Chronic - Subjective Interval history: 75 Y/O M DNR-CCA-DNI Patient with extensive PMH-Afib s/p AICD, CHFpEF, CAD s/pCABG 2013, s/p MVreplacement, COPD, CK D stage III, diabetes mellitus complaining complicated by nephropathy. On admission for hydropneumothorax s/p chest tube placement,Bronchitis, CXR equivocal for infiltrates He is seen sitting out of bed to chair Denies new complaints Reports significant improvement in chest pain and cough. Pleural fluid culture, blood culture, sputum culture, preliminary negative no evidence of infection on pleural fluid work up so far. Patient has slight increase in creatinine today. CBC stable. 500 mL bolus, encouraged the liberal fluid intake. NO re-expansion of L lung per CXR Thoracic surgery on board, patient is considering surgical options - Constitutional Vitals: Temp Pulse Resp BP Pulse Ox 97.7 F 72 16 132/66 93 L 04/21/16 07:42 04/21/16 07:42 04/21/16 07:42 04/21/16 07:42 04/21/16 07:42 General appearance: Present: cooperative, A&O X 3, pleasant, no acute distress - Head Head exam: Present: atraumatic, normocephalic - Eye Eye exam: Present: PERRL, conjuntiva pink, sclera anicteric Pupils: Present: PERRL - Neck Neck exam general surgery: Present: supple, trachea midline. Absent: lymphadenopathy - Respiratory Additional comments: Mid chest scar. Right-sided chest tube draining serous fluid. Dressing clean and dry. Normal auscultation L Lung Right lung bases decreased breath sounds. - Cardiovascular Cardiovascular exam: Present: RRR, +S1, +S2. Absent: diastolic murmur, gallop, rubs, systolic murmur - GI/Abdominal GI/Abdominal exam: Present: normal bowel sounds, soft, no peritoneal signs. Absent: distended, tenderness - Extremities Exam Extremities exam: Present: warm, radial pulses palpable and symetrical. Absent : calf tenderness, cyanotic, pedal edema - Neurological Exam Neurological exam: Present: CN II-XII intact, oriented X3, no focal deficits. Absent: pronater drift, facial droop, speech deficit - Skin Skin exam: Present: dry, intact Internal Medicine: Result - Labs CBC & Chem 7: 04/21/16 05:29 04/21/16 05:29 Labs: Short CBC 04/21/16 Range/Units 05:29 WBC 7.3 (4.3-11.1) K/mcL Hgb 12.6 L (12.9-16.9) g/dL Hct 38.1 (37.5-50.1) % Plt Count 169 (140-400) K/mcL Neutrophils # 5.0 (1.6-8.9) K/mcL BMP 04/21/16 05:29 Sodium 137 Potassium 4.1 Chloride 99 Carbon Dioxide 27 BUN 46 H Creatinine 1.60 H Glucose 140 H Calcium 9.5 - ABG Interpretation ABG results: PT/INR, D-dimer PT 12.4 Seconds (9.4-12.1) H 04/18/16 15:50 - Impressions Impressions Chest X-Ray 04/21/16 00:01 IMPRESSION: Stable examination with partially loculated right basilar pneumothorax with right basilar chest tube. D/ / Duran Bueno MD / Duran Bueno MD Interpreting Provider: Duran Bueno MD Consult Discharge Plan - Plan Referrals: Amauri Lama MD [Partnered Physician] - 04/25/16 11:30 am
[2016-04-21] MEDS: levoFLOXacin 750 MG TABLET PO SCH (14:40)
[2016-04-22] MEDS: Ipratropium/Albuterol Neb 3 ML IH SCH ×4 (05:05→21:31)
[2016-04-22 06:00] LABS: Calcium 9.3 mg/dL (8.6-10.8); Potassium 3.9 mEq/L (3.5-4.5)
[2016-04-22] MEDS: *HR* Heparin 5,000 UNIT/ML VIAL SQ SCH ×2 (06:35→17:55)
[2016-04-22] MEDS: *HR* HYDROcodone/Acet 5/325 mg TABLET PO PRN ×2 (08:03→19:42)
[2016-04-22] MEDS: Insulin LISPRO 300 UNITS/3 ML VIAL SQ SCH ×4 (08:04→20:48)
--- NOTE | 2016-04-22 08:17 | Cardiothoracic Progress Note ---
Date of Encounter: 04/22/16 Time of Encounter: 08:15 - Assessment and plan (1) Pleural effusion Current Visit: No Status: Acute Although the right pleural effusion is well drained, the patient has a persistent right basilar pneumothorax despite the chest tube being on suction. He will require a right thoracotomy and decortication. Overnight the patient's renal function has deteriorated with an increase in his creatinine to 1.82. His diuretic will be decreased and the operation postponed until the renal function improves. The assessment and plan as outlined above was discussed with the patient and/or family members who expressed understanding and agreement. All questions were answered. - Subjective Interval history: The patient is resting comfortably in his hospital bed. He has no complaints. Vital Signs, Last 4 Hours Temp Pulse Resp BP Pulse Ox 04/22/16 07:13 97.7 F 69 16 130/62 94 L 04/22/16 04:25 97.8 F 69 16 Oxgyen Flow Rate Oxygen Flow Rate (LPM) 0 Clinical Data, last 8 Hours Output, Chest Tube Drainage 25 Amount [Right Upper] Output, Urine Amount 100 Weight 04/20/16 04/21/16 04/22/16 23:59 23:59 23:59 Weight 95.6 kg 93.3 kg 92.3 kg - Physical Examination General: Conversant, No Apparent Distress Neck: No JVD, Normal carotid pulses Cardiac: Reg Rate and Rhythm (AV paced rhythm), Normal S1 and S2, No Murmur Incision: No signs of infection Chest tubes: Minimal drainage, Other (No air leak.) Lungs: Normal Breath Sounds, No Wheeze, Rales, Rhonchi Neuro: Alert and responsive, No focal deficits noted Extremities: No Clubbing, No Cyanosis, No Edema - Labs 04/21/16 05:29 04/22/16 05:21 Lab Results, Last 24 hours 04/22/16 05:21 Sodium 138 Potassium 3.9 Chloride 100 Carbon Dioxide 27 BUN 53 H Creatinine 1.82 H Glucose 176 H Calcium 9.3 - Imaging Chest Xray: image reviewed (Right basilar pneumothorax, unchanged. Persistent right lung consolidation.) Consult Discharge Plan - Plan Referrals: Amauri Lama MD [Partnered Physician] - 04/25/16 11:30 am
[2016-04-22] MEDS: Aspirin Enteric Coated 81 MG Tablet PO SCH (08:23)
[2016-04-22] MEDS: Furosemide 20 MG/2 ML VIAL IVP SCH ×2 (08:27→20:49)
--- NOTE | 2016-04-22 10:46 | Internal Med Progress Note ---
Date of Encounter: 04/22/16 Time of Encounter: 10:45 - Assessment and plan (1) Hydropneumothorax Current Visit: Yes Status: Acute Assessment and plan: Chronic on chart review Sputum culture, blood and pleural fluid culture no growth Continue po Levaquin for bronchitis Pain control ECHO LVEF 50% Thoracic surgery and Pulmonolgy eval appreciated (2) CKD (chronic kidney disease) stage 3, GFR 30-59 ml/min Current Visit: Yes Status: Chronic Assessment and plan: Slight superimposed renal insufficiency GFR and Cr iworse this morning from prior Continue to hold Lisinopril Hold Diuretics Avoid nephrotoxins Rpt Chem am Encourage liberal fluid intake (3) COPD (chronic obstructive pulmonary disease) Current Visit: Yes Status: Chronic Assessment and plan: Chronic stable, no wheezing on exam Duonebs prn Levoflox O2 by NC Qualifiers: COPD type: unspecified COPD Qualified Code(s): J44.9 - Chronic obstructive pulmonary disease, unspecified (4) Diastolic CHF Current Visit: Yes Status: Chronic Assessment and plan: Does not appear to be in clinical exacerbation Hold home dose of Lasix and Metolazone Monitor I/O's, obtain daily weights Qualifiers: Congestive heart failure chronicity: chronic Qualified Code(s): I50.32 - Chronic diastolic (congestive) heart failure (5) Hypertension Current Visit: Yes Status: Chronic Assessment and plan: Continue BB Qualifiers: Hypertension type: essential hypertension Qualified Code(s): I10 - Essential (primary) hypertension (6) Insulin dependent diabetes mellitus Current Visit: Yes Status: Chronic Assessment and plan: Continue SSI ACHS accuchecks A1c of 6.2 01/2016 (7) CAD (coronary artery disease) Current Visit: Yes Status: Chronic Assessment and plan: Chronic, stable, no Chest pain Continue home meds Qualifiers: Coronary Disease-Associated Artery/Lesion type: [place] artery [place] vs. transplanted heart: [place] heart Associated angina: without angina Qualified Code(s): I25.10 - Atherosclerotic heart disease of [place] coronary artery without angina pectoris (8) Paroxysmal a-fib Current Visit: Yes Status: Chronic Assessment and plan: Not on anticoagulation due to GI bleed (9) S/P MVR (mitral valve replacement) Current Visit: Yes Status: Chronic - Subjective Interval history: 75 Y/O M DNR-CCA-DNI Patient with extensive PMH-Afib s/p AICD, CHFpEF, CAD s/pCABG 2013, s/p MVreplacement, COPD, CK D stage III, diabetes mellitus complaining complicated by nephropathy. On admission for hydropneumothorax s/p chest tube placement,Bronchitis, CXR equivocal for infiltrates He is seen sleeping but rousable Denies new complaints Pleural fluid culture, blood culture, sputum culture, preliminary negative no evidence of infection on pleural fluid work up so far. Renal function is worse Will hold all diuretics - Constitutional Vitals: Temp Pulse Resp BP Pulse Ox 97.7 F 69 16 130/62 94 L 04/22/16 07:13 04/22/16 07:30 04/22/16 07:13 04/22/16 07:13 04/22/16 07:13 General appearance: Present: cooperative, A&O X 3, pleasant, no acute distress - Head Head exam: Present: atraumatic, normocephalic - Eye Eye exam: Present: PERRL, conjuntiva pink, sclera anicteric Pupils: Present: PERRL - Neck Neck exam general surgery: Present: supple, trachea midline. Absent: lymphadenopathy - Respiratory Respiratory exam: Present: decreased breath sounds (R lung base. LL CTA) Additional comments: Scar Tube minimal drainage - Cardiovascular Cardiovascular exam: Present: RRR, +S1, +S2. Absent: diastolic murmur, gallop, rubs, systolic murmur - GI/Abdominal GI/Abdominal exam: Present: normal bowel sounds, soft, no peritoneal signs. Absent: distended, tenderness - Extremities Exam Extremities exam: Present: warm, radial pulses palpable and symetrical. Absent : calf tenderness, cyanotic, pedal edema - Neurological Exam Neurological exam: Present: CN II-XII intact, oriented X3, no focal deficits. Absent: pronater drift, facial droop, speech deficit - Skin Skin exam: Present: dry, intact Internal Medicine: Result - Labs CBC & Chem 7: 04/21/16 05:29 04/22/16 05:21 Labs: BMP 04/22/16 05:21 Sodium 138 Potassium 3.9 Chloride 100 Carbon Dioxide 27 BUN 53 H Creatinine 1.82 H Glucose 176 H Calcium 9.3 - ABG Interpretation ABG results: PT/INR, D-dimer PT 12.4 Seconds (9.4-12.1) H 04/18/16 15:50 - Impressions Impressions Chest X-Ray 04/22/16 00:01 IMPRESSION: No change in right basilar pneumothorax and right lung consolidation D/ / Juan Ramon Irwin MD / Juan Ramon Irwin MD Interpreting Provider: Juan Ramon Irwin MD Consult Discharge Plan - Plan Referrals: Amauri Lama MD [Partnered Physician] - 04/25/16 11:30 am
[2016-04-22] MEDS: Budesonide/Formoterol 160/4.5 MDI IH SCH ×2 (11:39→21:31)
[2016-04-23] MEDS: Ipratropium/Albuterol Neb 3 ML IH SCH ×4 (04:47→21:26)
[2016-04-23 05:42] LABS: Calcium 9.3 mg/dL (8.6-10.8); Potassium 4.3 mEq/L (3.5-4.5)
[2016-04-23 05:43] LABS: Hematocrit 36.4 % (37.5-50.1); Hemoglobin 12.2 g/dL (12.9-16.9); Mean Corpuscular HGB Conc 33.5 g/dL (31.6-35.5); Mean Corpuscular Hemoglobin 30.8 pg (28.0-33.3); Mean Corpuscular Volume 91.9 fL (83.0-100.0); Mean Platelet Volume 10.9 fL (9.4-12.4); Platelet Count 172 K/mcL (140-400); Red Blood Count 3.96 M/mcL (4.19-5.50); Red Cell Distribution Width 15.2 % (11.5-14.5)
[2016-04-23] MEDS: *HR* HYDROcodone/Acet 5/325 mg TABLET PO PRN ×2 (06:37→18:42)
[2016-04-23] MEDS: *HR* Heparin 5,000 UNIT/ML VIAL SQ SCH ×2 (06:37→18:43)
[2016-04-23] MEDS: Aspirin Enteric Coated 81 MG Tablet PO SCH (07:51)
[2016-04-23] MEDS: Furosemide 20 MG/2 ML VIAL IVP SCH (07:51)
[2016-04-23] MEDS: Insulin LISPRO 300 UNITS/3 ML VIAL SQ SCH ×4 (07:52→21:15)
--- NOTE | 2016-04-23 09:04 | Nephrology Consult Note ---
Date of Encounter: 04/23/16 Time of Encounter: 08:15 Assessment and Plan (1) SHELIA (acute kidney injury) Current Visit: Yes Status: Acute SHELIA most likely related to recent overdiuresis R/T CHF, superimposed on CKD in setting DM, HTN, diuretics and advancing age contributing. Will hold diuretics, Lisinopril and avoid other nephrotoxis. Will gently hydrate over next 24 hours with NS at 50 cc/hr. Will proceed with renal workup. History of Present Illness - Reason for Consult Acute Kidney Injury, Chronic Kidney Disease - History of Present Illness Mr. 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 Patient had had progressive SOB associated with cough. He had a known chronic right pleural effusion for approximately six months. Other PMH includes A fib, CAD, angioplasty/stent, heart valve replacement, pacemaker/AICD, MD, DM, HTN and COPD. In the ER Mr. Silver had a right sided chest tube placed with greater than 1 liter straw color fluid return with lack of reexpansion of lung. Creat on admission 1.33. Lasix, Metolazone and Lisinopril held. Creat noted to be steadily increasing since admission, today being 1.84, GFR 44. old labs indicate baseline creat 1.26 -1.28 since 2013. Today at consult Mr. 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 He states has been on Lasix 40mg twice daily for past few months R/T CHF with Metolazone 2.5 mg every other day recently prior to this hospital stay. He admits very remote NSAID use in past and was told to avoid them few years ago at [facility] of open heart surgery. He denies proteinuria, hematuria, renal stones or UTI's. He admits occasional LE swelling R/T CHF, admits SOB he R/T his COPD, CHF and pleural effusion. He denies chest pain. He denies difficuty emptying bladder, however admits very slow stream. Past Med Surg Social Fam HX - Past Medical History Medical history: atrial fibrillation, CHF, COPD, coronary artery disease, diabetes, hyperlipidemia, hypertension, myocardial infarction, valvular heart disease Psychiatric history: depression - Past Surgical History Surgical History: angioplasty/stent, heart valve replacement, pacemaker/AICD - Social History Smoking Status: Never smoker Smokeless Tobacco Status: No Alcohol use: none Drug use: none - Family History Father Living Status: Hx Family Cardiac Disorders: Yes (MD) Brother Living Status: Still Living Hx Family Cardiac Disorders: Yes Medications and Allergies Aspirin [Adult Low Dose Aspirin EC] 81 mg PO QAM 03/21/15 [History] Ferrous Sulfate 324 mg PO QPM 03/21/15 [History] Furosemide [Lasix] 40 mg PO BID 03/21/15 [History] Insulin Glargine,Hum.rec.anlog [Lantus Solostar] 30 unit SQ HS 03/21/15 [History ] Lisinopril [Zestril] 5 mg PO QAM 03/21/15 [History] Metoprolol [Lopressor] 50 mg PO BID 03/21/15 [History] Potassium Chloride [K-Tab ER] 10 meq PO QAM 03/21/15 [History] Pravastatin Sodium [Pravachol] 80 mg PO QPM 03/21/15 [History] Zinc Acetate [Galzin] 50 mg PO QAM 03/21/15 [History] Glucagon,Human Recombinant [Glucagon Emergency Kit] 1 mg IJ ONCE PRN 04/18/16 [ History] Insulin LISPRO [Humalog Kwikpen U-100] 10 unit SQ TIDWM 04/18/16 [History] Metolazone [Zaroxolyn] 2.5 mg PO Q48H 04/18/16 [History] Multivitamin [Multi-Day Vitamins] 1 each PO DAILY 04/18/16 [History] Tramadol HCl [Tramadol HCl] 50 mg PO QID PRN 04/18/16 [History] Allergies clopidogrel [From Plavix] Adverse Reaction (Verified 04/18/16 15:19) Itching Review of Systems All Systems: reviewed and no additional remarkable complaints except as stated Exam - Vital Signs Vital signs: Initial Vital Signs Temp Pulse Resp BP Pulse Ox 97.4 F L 73 20 141/82 95 04/18/16 15:19 04/18/16 15:19 04/18/16 15:19 04/18/16 15:19 04/18/16 15:19 Vital Signs - Last 8 Hours Temp Pulse Resp BP Pulse Ox 04/23/16 07:25 98.0 F 70 12 119/53 94 L 04/23/16 04:51 97.7 F 69 17 125/62 95 04/23/16 04:47 20 97 Intake and Output 04/22/16 04/23/16 04/23/16 23:59 07:59 15:59 Intake Total 480 / 480 475 / 475 Output Total 450 / 450 540 / 540 Balance 30 / 30 -65 / -65 Intake: Oral 480 / 480 475 / 475 Output: Urine 375 / 375 475 / 475 Chest Tube Drainage 75 / 75 65 / 65 Right Upper 75 / 75 65 / 65 Other: Meal Dinner Percent of Meal Consumed 50% Weight 93 kg Blood Glucose* 248 199 Patient Weight 04/23/16 23:59 Weight 93 kg - General Appearance General appearance: well-developed, well-nourished, appears started age EENT: mucous membranes moist Neck: no JVD, no carotid bruit Respiratory: clear Additional Comments: diminished on right, Chest tube to pleuravac on right. Dry cough with deep breaths Cardiology: no murmurs, no edema, regular rate, regular rhythm Gastrointestinal: normoactive bowel sounds, no tenderness Integumentary: warm and dry Neurologic: alert and oriented x3 Psychiatric: mood/affect appropriate, cooperative Results - Lab Results 04/23/16 05:14 04/23/16 05:14 Most recent lab results Calcium 9.3 mg/dL (8.6-10.8) 04/23/16 05:14 Consult Discharge Plan - Plan Referrals: Amauri Lama MD [Partnered Physician] - 04/25/16 11:30 am
[2016-04-23] MEDS ORDERED: 0.9 % Sodium Chloride 1,000 ML IVC SCH (09:15)
[2016-04-23] MEDS: Budesonide/Formoterol 160/4.5 MDI IH SCH ×2 (10:23→21:26)
--- NOTE | 2016-04-23 10:39 | Cardiothoracic Progress Note ---
Date of Encounter: 04/23/16 Time of Encounter: 10:37 - Assessment and plan (1) Hydropneumothorax Current Visit: Yes Status: Acute The patient's creatinine his increased to 1.84. We will ask nephrology to see him. Once his kidneys are stable, he will most likely require thoracotomy with decortication. - Subjective Interval history: The patient has no complaints. His cough is improved. Vital Signs, Last 4 Hours Temp Pulse Resp BP Pulse Ox 04/23/16 10:16 69 04/23/16 08:50 69 04/23/16 07:25 98.0 F 70 12 119/53 94 L Oxgyen Flow Rate Oxygen Flow Rate (LPM) 0 Clinical Data, last 8 Hours Output, Chest Tube Drainage 25 Amount [Right Upper] Output, Chest Tube Drainage 20 Amount [Right Upper] Output, Urine Amount 150 Output, Urine Amount 150 Output, Urine Amount 125 Weight 04/21/16 04/22/16 04/23/16 23:59 23:59 23:59 Weight 93.3 kg 92.3 kg 93 kg Lungs are clear to percussion and auscultation. There are decreased breath sounds at the right base. Heart is in a paced rhythm. Chest x-ray reveals continued collapse of the right lower lobe. - Labs 04/23/16 05:14 04/23/16 05:14 Lab Results, Last 24 hours 04/23/16 04/23/16 05:14 05:14 WBC 8.2 Hgb 12.2 L Hct 36.4 L Plt Count 172 Sodium 137 Potassium 4.3 Chloride 99 Carbon Dioxide 26 BUN 59 H Creatinine 1.84 H Glucose 142 H Calcium 9.3 Consult Discharge Plan - Plan Referrals: Amauri Lama MD [Partnered Physician] - 04/25/16 11:30 am
--- NOTE | 2016-04-23 11:02 | Internal Med Progress Note ---
Date of Encounter: 04/23/16 Time of Encounter: 11:02 - Assessment and plan (1) Imbul-sz-jlplyok kidney injury Current Visit: Yes Status: Acute Assessment and plan: Renal function worsened from previous day Will continue to hold KRISTIN/ARB, LAsix at this time Started Low dose IV fluids by Nephrology Nephro eval appreciated Pending Renal US continue to avoid nephrotoxic agents (2) Hydropneumothorax Current Visit: Yes Status: Acute Assessment and plan: Chronic on chart review Sputum culture, blood and pleural fluid culture no growth Continue po Levaquin for bronchitis Pain control ECHO LVEF 50% Thoracic surgery and Pulmonolgy eval appreciated Awaiting surgical intervention pending improvement of renal function (3) CAD (coronary artery disease) Current Visit: Yes Status: Chronic Assessment and plan: Chronic, stable, no Chest pain Continue home meds Qualifiers: Coronary Disease-Associated Artery/Lesion type: [place] artery [place] vs. transplanted heart: [place] heart Associated angina: without angina Qualified Code(s): I25.10 - Atherosclerotic heart disease of [place] coronary artery without angina pectoris (4) COPD (chronic obstructive pulmonary disease) Current Visit: Yes Status: Chronic Assessment and plan: Chronic stable, no wheezing on exam Duonebs prn Levofloxacin O2 by [place] Qualifiers: COPD type: unspecified COPD Qualified Code(s): J44.9 - Chronic obstructive pulmonary disease, unspecified (5) Diastolic CHF Current Visit: Yes Status: Chronic Assessment and plan: Does not appear to be in clinical exacerbation Hold home dose of Lasix and Metolazone Monitor I/O's, obtain daily weights Qualifiers: Congestive heart failure chronicity: chronic Qualified Code(s): I50.32 - Chronic diastolic (congestive) heart failure (6) Hypertension Current Visit: Yes Status: Chronic Assessment and plan: BP within acceptable range Continue BB Qualifiers: Hypertension type: essential hypertension Qualified Code(s): I10 - Essential (primary) hypertension (7) Insulin dependent diabetes mellitus Current Visit: Yes Status: Chronic Assessment and plan: Continue SSI ACHS accuchecks A1c of 6.2 01/2016 restarted home insulin dosing (8) Paroxysmal a-fib Current Visit: Yes Status: Chronic Assessment and plan: Not on anticoagulation due to GI bleed rate controlled with BB (9) S/P MVR (mitral valve replacement) Current Visit: Yes Status: Chronic (10) DVT prophylaxis Current Visit: Yes Status: Acute Assessment and plan: Heparin SQ - Subjective Interval history: Pt seen and examined at bedside. Reports of pain being adequately controlled with current pain medications. Reports of not being able to move his bowels since admission. No overnight issues were reported. - Constitutional Vitals: Temp Pulse Resp BP Pulse Ox 98.0 F 69 12 119/53 94 L 04/23/16 07:25 04/23/16 10:16 04/23/16 07:25 04/23/16 07:25 04/23/16 07:25 General appearance: Present: cooperative, A&O X 3, pleasant, no acute distress, obese, answers questions appropriately - Head Head exam: Present: atraumatic, normocephalic - Eye Eye exam: Present: conjuntiva pink (ptosis of right eye), sclera anicteric - Respiratory Respiratory exam: Present: CTAB. Absent: respiratory distress (right chest tube in place), wheezes - Cardiovascular Cardiovascular exam: Present: RRR, +S1, +S2 - GI/Abdominal GI/Abdominal exam: Present: normal bowel sounds, soft. Absent: distended, tenderness - Extremities Exam Extremities exam: Present: warm, radial pulses palpable and symetrical. Absent : calf tenderness, pedal edema - Neurological Exam Neurological exam: Present: alert, oriented X3 - Psychiatric Psychiatric exam: Present: normal affect, normal mood Internal Medicine: Result - Labs CBC & Chem 7: 04/23/16 05:14 04/23/16 05:14 Labs: Short CBC 04/23/16 Range/Units 05:14 WBC 8.2 (4.3-11.1) K/mcL Hgb 12.2 L (12.9-16.9) g/dL Hct 36.4 L (37.5-50.1) % Plt Count 172 (140-400) K/mcL BMP 04/23/16 05:14 Sodium 137 Potassium 4.3 Chloride 99 Carbon Dioxide 26 BUN 59 H Creatinine 1.84 H Glucose 142 H Calcium 9.3 - ABG Interpretation ABG results: PT/INR, D-dimer PT 12.4 Seconds (9.4-12.1) H 04/18/16 15:50 Consult Discharge Plan - Plan Referrals: Amauri Lama MD [Partnered Physician] - 04/25/16 11:30 am
[2016-04-23] MEDS: levoFLOXacin 750 MG TABLET PO SCH (13:27)
[2016-04-23] MEDS ORDERED: Insulin DETEMIR 100 UNIT/ML X5UNITS SQ SCH (21:00)
[2016-04-24 01:07] LABS: Basophils % 0.3 %; Eosinophils # 0.2 K/mcL (0.0-0.6); Eosinophils % 2.8 %; Hemoglobin 11.5 g/dL (12.9-16.9); Immature Granulocytes % 0.4 % (0-4); Lymphocytes # 1.5 K/mcL (0.6-4.6); Lymphocytes % 21.1 %; Mean Corpuscular HGB Conc 33.8 g/dL (31.6-35.5); Mean Corpuscular Volume 91.6 fL (83.0-100.0); Mean Platelet Volume 10.8 fL (9.4-12.4); Monocytes # 0.4 K/mcL (0.0-1.3); Monocytes % 5.9 %; Platelet Count 173 K/mcL (140-400); Red Blood Count 3.71 M/mcL (4.19-5.50); Red Cell Distribution Width 14.9 % (11.5-14.5); Segmented Neutrophils % 69.5 %
[2016-04-24 01:23] LABS: Calcium 8.9 mg/dL (8.6-10.8); Potassium 3.8 mEq/L (3.5-4.5)
[2016-04-24 01:27] LABS: Magnesium 2.2 mg/dL (1.6-2.6); Phosphorous 3.8 mg/dL (2.3-4.7)
[2016-04-24] MEDS: Ipratropium/Albuterol Neb 3 ML IH SCH ×4 (04:01→23:41)
[2016-04-24] MEDS: *HR* Heparin 5,000 UNIT/ML VIAL SQ SCH ×2 (06:05→20:00)
--- NOTE | 2016-04-24 07:13 | Cardiothoracic Progress Note ---
Date of Encounter: 04/24/16 Time of Encounter: 07:12 - Assessment and plan (1) Hydropneumothorax Current Visit: Yes Status: Acute His creatinine is improving and is down to 1.67. - Subjective Interval history: The patient has no complaints. Vital Signs, Last 4 Hours Temp Pulse Resp BP Pulse Ox 04/24/16 04:41 71 17 97 04/24/16 04:14 97.8 F 69 17 110/84 97 Oxgyen Flow Rate Oxygen Flow Rate (LPM) 0 Clinical Data, last 8 Hours Output, Chest Tube Drainage 90 Amount [Right Upper] Weight 04/22/16 04/23/16 04/24/16 23:59 23:59 23:59 Weight 92.3 kg 93 kg 94 kg Lungs are clear to percussion and auscultation. Heart is in a paced rhythm. Chest tube drainage is minimal and there is no air leak. - Labs 04/24/16 00:36 04/24/16 00:36 Lab Results, Last 24 hours 04/24/16 04/24/16 04/24/16 00:36 00:36 00:36 WBC 7.2 Hgb 11.5 L Hct 34.0 L Plt Count 173 Sodium 134 L Potassium 3.8 Chloride 98 Carbon Dioxide 26 BUN 61 H Creatinine 1.67 H Glucose 195 H Calcium 8.9 Magnesium 2.2 Consult Discharge Plan - Plan Referrals: Amauri Lama MD [Partnered Physician] - 04/25/16 11:30 am
[2016-04-24] MEDS: Aspirin Enteric Coated 81 MG Tablet PO SCH (09:03)
[2016-04-24] MEDS: Insulin LISPRO 300 UNITS/3 ML VIAL SQ SCH ×4 (09:03→20:09)
[2016-04-24] MEDS: *HR* HYDROcodone/Acet 5/325 mg TABLET PO PRN ×2 (09:05→20:05)
--- NOTE | 2016-04-24 09:43 | Nephrology Progress Note ---
Date of Encounter: 04/24/16 Time of Encounter: 09:20 - Assessment and Plan (1) SHELIA (acute kidney injury) Current Visit: Yes Status: Acute SHELIA most likely related to recent overdiuresis R/T CHF, superimposed on CKD in setting DM, HTN, diuretics and advancing age contributing. Will hold diuretics, Lisinopril and avoid other nephrotoxins. Renal fct improving, creat 1.67, GFR 41. Urine output 1150. Renal US essentially negative except PVR 334cc and prostomegaly, outlet obstruction. Will start on Flomax and consult Urology. Renal workup in progress Subjective Interval history: States doing well, breathing easy. no new complaints. Objective - Vital Signs Vital signs: Vital Signs Temp Pulse Resp BP Pulse Ox 04/24/16 09:21 71 04/24/16 04:41 71 17 97 04/24/16 04:14 97.8 F 69 17 110/84 97 04/23/16 23:53 98.0 F 83 16 140/65 97 04/23/16 21:27 75 18 95 04/23/16 21:26 16 97 04/23/16 21:10 98.0 F 77 18 135/61 95 04/23/16 16:04 98.0 F 72 14 138/54 96 04/23/16 15:47 16 98 04/23/16 15:18 69 04/23/16 11:07 69 04/23/16 11:06 97.7 F 72 12 125/70 96 04/23/16 10:23 16 98 04/23/16 10:16 69 Intake and Output 04/23/16 04/24/16 04/24/16 23:59 07:59 15:59 Intake Total 450 / 450 200 / 200 Output Total 325 / 325 390 / 390 Balance 125 / 125 -190 / -190 Intake: Oral 450 / 450 200 / 200 Output: Urine 325 / 325 300 / 300 Chest Tube Drainage 90 / 90 Right Upper 90 / 90 Other: Weight 94 kg Blood Glucose* 193 Patient Weight 04/24/16 23:59 Weight 94 kg - General Appearance General appearance: Present: well-developed, well-nourished, appears started age EENT: Present: mucous membranes moist Neck: Present: no JVD Additional Comments: crackles RLL, CT to pleuravac Cardiology: Present: no murmurs, no edema, regular rate, regular rhythm Gastrointestinal: Present: normoactive bowel sounds Integumentary: Present: warm and dry Neurologic: Present: alert and oriented x3 Psychiatric: Present: mood/affect appropriate, cooperative - Lab 04/24/16 00:36 04/24/16 00:36 Most recent lab results Calcium 8.9 mg/dL (8.6-10.8) 04/24/16 00:36 Phosphorus 3.8 mg/dL (2.3-4.7) 04/24/16 00:36 Magnesium 2.2 mg/dL (1.6-2.6) 04/24/16 00:36 Consult Discharge Plan - Plan Referrals: Amauri Lama MD [Partnered Physician] - 04/25/16 11:30 am
--- NOTE | 2016-04-24 10:08 | Internal Med Progress Note ---
Date of Encounter: 04/24/16 Time of Encounter: 10:06 - Assessment and plan (1) Igjdm-[id number] kidney injury Current Visit: Yes Status: Acute Assessment and plan: Renal function Improved from previous day Will continue to hold KRISTIN/ARB, LAsix at this time Nephro eval appreciated Renal US: Unremarkable US of the kidneys however noted to have Postvoidal residual volume of 334cc with prostamegaly, likely outlet obstruction. Flomax started by nephrology Urology consult placed by typing checker. continue to avoid nephrotoxic agents (2) Hydropneumothorax Current Visit: Yes Status: Acute Assessment and plan: Chronic on chart review Sputum culture, blood and pleural fluid culture no growth Continue po Levaquin for bronchitis Pain control ECHO LVEF 50% Thoracic surgery and Pulmonolgy eval appreciated Awaiting surgical intervention pending improvement of renal function (3) CAD (coronary artery disease) Current Visit: Yes Status: Chronic Assessment and plan: Chronic, stable, no Chest pain Continue home meds Qualifiers: Coronary Disease-Associated Artery/Lesion type: [place] artery [place] vs. transplanted heart: [place] heart Associated angina: without angina Qualified Code(s): I25.10 - Atherosclerotic heart disease of [place] coronary artery without angina pectoris (4) COPD (chronic obstructive pulmonary disease) Current Visit: Yes Status: Chronic Assessment and plan: Chronic stable, no wheezing on exam Duonebs prn Levofloxacin O2 by [place] Qualifiers: COPD type: unspecified COPD Qualified Code(s): J44.9 - Chronic obstructive pulmonary disease, unspecified (5) Diastolic CHF Current Visit: Yes Status: Chronic Assessment and plan: Does not appear to be in clinical exacerbation Hold home dose of Lasix and Metolazone Monitor I/O's, obtain daily weights Qualifiers: Congestive heart failure chronicity: chronic Qualified Code(s): I50.32 - Chronic diastolic (congestive) heart failure (6) Hypertension Current Visit: Yes Status: Chronic Assessment and plan: BP within acceptable range Continue BB Qualifiers: Hypertension type: essential hypertension Qualified Code(s): I10 - Essential (primary) hypertension (7) Insulin dependent diabetes mellitus Current Visit: Yes Status: Chronic Assessment and plan: Continue SSI ACHS accuchecks Noted to have persistent hyperglycemia Increased Levemir to 35units qHS will continue to monitor fingerstick and blood glucose (8) Paroxysmal a-fib Current Visit: Yes Status: Chronic Assessment and plan: Not on anticoagulation due to GI bleed rate controlled with BB (9) S/P MVR (mitral valve replacement) Current Visit: Yes Status: Chronic (10) DVT prophylaxis Current Visit: Yes Status: Acute Assessment and plan: Heparin SQ - Subjective Interval history: Pt seen and examined at bedside. Reports of pain being adequately controlled with current pain medications. No overnight issues reported. Noted to have improvement in kidney function and renal US showing Post voidal residual volume of 334cc along with prostatomegaly. - Constitutional Vitals: Temp Pulse Resp BP Pulse Ox 97.8 F 71 17 110/84 97 04/24/16 04:14 04/24/16 09:21 04/24/16 04:41 04/24/16 04:14 04/24/16 04:41 General appearance: Present: cooperative, A&O X 3, pleasant, no acute distress, obese, answers questions appropriately - Head Head exam: Present: atraumatic, normocephalic - Eye Eye exam: Present: PERRL, conjuntiva pink, sclera anicteric - Respiratory Respiratory exam: Present: CTAB (right chest tube in place). Absent: respiratory distress, wheezes - Cardiovascular Cardiovascular exam: Present: RRR, +S1, +S2 - GI/Abdominal GI/Abdominal exam: Present: normal bowel sounds, soft. Absent: distended, tenderness - Extremities Exam Extremities exam: Present: warm, radial pulses palpable and symetrical. Absent : calf tenderness, pedal edema - Neurological Exam Neurological exam: Present: alert, oriented X3 - Psychiatric Psychiatric exam: Present: normal affect, normal mood Internal Medicine: Result - Labs CBC & Chem 7: 04/24/16 00:36 04/24/16 00:36 Labs: Short CBC 04/24/16 Range/Units 00:36 WBC 7.2 (4.3-11.1) K/mcL Hgb 11.5 L (12.9-16.9) g/dL Hct 34.0 L (37.5-50.1) % Plt Count 173 (140-400) K/mcL Neutrophils # 5.0 (1.6-8.9) K/mcL BMP 04/24/16 00:36 Sodium 134 L Potassium 3.8 Chloride 98 Carbon Dioxide 26 BUN 61 H Creatinine 1.67 H Glucose 195 H Calcium 8.9 - ABG Interpretation ABG results: PT/INR, D-dimer PT 12.4 Seconds (9.4-12.1) H 04/18/16 15:50 - Impressions Impressions Retroperitoneum Ultrasound 04/23/16 17:00 IMPRESSION: 1. Unremarkable ultrasound of the kidneys. 2. Postvoid residual volume measures 334 cc. 3. Prostatomegaly. D/ / 04/23/2016 18:18:31 Honey Ceron MD / [email or web address] Interpreting Provider: Honey Ceron MD Chest X-Ray 04/24/16 00:01 IMPRESSION: 1. Unchanged loculated right hydropneumothorax without tension. 2. Unchanged bibasilar atelectasis. 3. Pulmonary vascular congestion, right perihilar edema and/or atelectasis, and mild cardiomegaly. D/ / Jesse Og MD / Jesse Og MD Interpreting Provider: Jesse Og MD Consult Discharge Plan - Plan Referrals: Amauri Lama MD [Partnered Physician] - 04/25/16 11:30 am
[2016-04-24] MEDS: Budesonide/Formoterol 160/4.5 MDI IH SCH ×2 (11:08→23:42)
--- NOTE | 2016-04-24 13:52 | Urology - Consult Note ---
Date of Encounter: 04/24/16 Time of Encounter: 13:49 - Assessment and Plan (1) Urinary hesitancy due to benign prostatic hyperplasia Current Visit: Yes Status: Acute Assessment and plan: agree with flomax. will make f/u in 3 weeks in eh on 05/10/16. Urology CN:[email or web address] Consult date: 04/24/16 Reason for consult Urology: Other (urinary retention) Requesting physician: Lexie Camacho History of present illness: Iam is a 75-year-old male with a history of difficulty voiding over the past 3-4 weeks. Patient has never seen a urologist before. He states that he was having increasing nocturia as well as weak urinary stream. He had a recent renal ultrasound which revealed a post for residual of approximately 300 mL's. Patient was recently started on Flomax. Past Med Surg Social Fam HX - Past Medical History Medical history: atrial fibrillation, CHF, COPD, coronary artery disease, diabetes, hyperlipidemia, hypertension, myocardial infarction, valvular heart disease Psychiatric history: depression - Past Surgical History Surgical History: angioplasty/stent, heart valve replacement, pacemaker/AICD - Social History Smoking Status: Never smoker Smokeless Tobacco Status: No Alcohol use: none Drug use: none - Family History Father Living Status: Hx Family Cardiac Disorders: Yes (SD) Brother Living Status: Still Living Hx Family Cardiac Disorders: Yes Medications and Allergies Aspirin [Adult Low Dose Aspirin EC] 81 mg PO QAM 03/21/15 [History] Ferrous Sulfate 324 mg PO QPM 03/21/15 [History] Furosemide [Lasix] 40 mg PO BID 03/21/15 [History] Insulin Glargine,Hum.rec.anlog [Lantus Solostar] 30 unit SQ HS 03/21/15 [History ] Lisinopril [Zestril] 5 mg PO QAM 03/21/15 [History] Metoprolol [Lopressor] 50 mg PO BID 03/21/15 [History] Potassium Chloride [K-Tab ER] 10 meq PO QAM 03/21/15 [History] Pravastatin Sodium [Pravachol] 80 mg PO QPM 03/21/15 [History] Zinc Acetate [Galzin] 50 mg PO QAM 03/21/15 [History] Glucagon,Human Recombinant [Glucagon Emergency Kit] 1 mg IJ ONCE PRN 04/18/16 [ History] Insulin LISPRO [Humalog Kwikpen U-100] 10 unit SQ TIDWM 04/18/16 [History] Metolazone [Zaroxolyn] 2.5 mg PO Q48H 04/18/16 [History] Multivitamin [Multi-Day Vitamins] 1 each PO DAILY 04/18/16 [History] Tramadol HCl [Tramadol HCl] 50 mg PO QID PRN 04/18/16 [History] Allergies clopidogrel [From Plavix] Adverse Reaction (Verified 04/18/16 15:19) Itching Review of Systems - Constitutional no chills - EENT Nose, mouth and throat: no dizziness - Cardiovascular no chest pain - Respiratory as per HPI - Gastrointestinal no abdominal pain - Musculoskeletal no back pain - Integumentary no erythema - Neurological no confusion - Psychiatric no anxiety Exam Initial Vital Signs Temp Pulse Resp BP Pulse Ox 97.4 F L 73 20 141/82 95 04/18/16 15:19 04/18/16 15:19 04/18/16 15:19 04/18/16 15:19 04/18/16 15:19 - General physical appearance Present: well developed - ENT Present: normal nares - Cardiovascular Cardiovascular exam IM: RRR - Abdomen Abdomen: Present: soft - Integumentary Present: no rash Urology Results - Labs 04/24/16 00:36 04/24/16 00:36 Abnormal lab results RBC 3.71 M/mcL (4.19-5.50) L 04/24/16 00:36 Hgb 11.5 g/dL (12.9-16.9) L 04/24/16 00:36 Hct 34.0 % (37.5-50.1) L 04/24/16 00:36 RDW 14.9 % (11.5-14.5) H 04/24/16 00:36 PT 12.4 Seconds (9.4-12.1) H 04/18/16 15:50 Sodium 134 mEq/L (136-145) L 04/24/16 00:36 BUN 61 mg/dL (8-26) H 04/24/16 00:36 Creatinine 1.67 mg/dL (0.72-1.25) H 04/24/16 00:36 Est GFR ( Amer) 49 (> 60) L 04/24/16 00:36 Est GFR (Non-Af Amer) 41 (> 60) L 04/24/16 00:36 BUN/Creatinine Ratio 37 (6-26) H 04/24/16 00:36 Glucose 195 mg/dL (70-99) H 04/24/16 00:36 POC Glucose 193 (58-89) H 04/23/16 21:05 Calculated Osmolality 301 (280-300) H 04/24/16 00:36 Uric Acid 13.6 mg/dL (3.5-7.2) H 04/23/16 09:57 Lactate Dehydrogenase 153 Units/L (159-327) L 04/18/16 22:16 Albumin 3.2 g/dL (3.5-5.0) L 04/19/16 05:20 Globulin 4.5 g/dL (2.4-3.5) H 04/19/16 05:20 Albumin/Globulin Ratio 0.7 (1.1-2.2) L 04/19/16 05:20 PTH Intact 97.8 pg/ml (8.5-72.5) H 04/23/16 09:57 Pleural Appearance Cloudy (Clear) A 04/20/16 09:13 Pleural RBC 0.017 M/mcL (0.000-0.002) H 04/20/16 09:13 Diabetes panel 04/24/16 Range/Units 00:36 Sodium 134 L (136-145) mEq/L Potassium 3.8 (3.5-4.5) mEq/L Chloride 98 (98-109) mEq/L Carbon Dioxide 26 (19-29) mEq/L BUN 61 H (8-26) mg/dL Creatinine 1.67 H (0.72-1.25) mg/dL Glucose 195 H (70-99) mg/dL Calcium 8.9 (8.6-10.8) mg/dL Calcium panel 04/24/16 04/24/16 Range/Units 00:36 00:36 Calcium 8.9 (8.6-10.8) mg/dL Phosphorus 3.8 (2.3-4.7) mg/dL Pituitary panel 04/24/16 Range/Units 00:36 Sodium 134 L (136-145) mEq/L Potassium 3.8 (3.5-4.5) mEq/L Chloride 98 (98-109) mEq/L Carbon Dioxide 26 (19-29) mEq/L BUN 61 H (8-26) mg/dL Creatinine 1.67 H (0.72-1.25) mg/dL Glucose 195 H (70-99) mg/dL Calcium 8.9 (8.6-10.8) mg/dL Adrenal panel 04/24/16 Range/Units 00:36 Sodium 134 L (136-145) mEq/L Potassium 3.8 (3.5-4.5) mEq/L Chloride 98 (98-109) mEq/L Carbon Dioxide 26 (19-29) mEq/L BUN 61 H (8-26) mg/dL Creatinine 1.67 H (0.72-1.25) mg/dL Glucose 195 H (70-99) mg/dL Calcium 8.9 (8.6-10.8) mg/dL All other labs normal. Consult Discharge Plan - Plan Referrals: Amauri Lama MD [Partnered Physician] - 04/25/16 11:30 am
[2016-04-24] MEDS: Insulin DETEMIR 100 UNIT/ML X5UNITS SQ SCH (20:10)
[2016-04-25] MEDS: Ipratropium/Albuterol Neb 3 ML IH SCH ×4 (03:36→21:05)
[2016-04-25 04:27] LABS: Basophils % 0.4 %; Eosinophils # 0.3 K/mcL (0.0-0.6); Eosinophils % 3.2 %; Hematocrit 36.3 % (37.5-50.1); Hemoglobin 11.9 g/dL (12.9-16.9); Immature Granulocytes % 0.6 % (0-4); Lymphocytes # 1.6 K/mcL (0.6-4.6); Mean Corpuscular HGB Conc 32.8 g/dL (31.6-35.5); Mean Corpuscular Hemoglobin 30.6 pg (28.0-33.3); Mean Corpuscular Volume 93.3 fL (83.0-100.0); Mean Platelet Volume 10.7 fL (9.4-12.4); Monocytes # 0.5 K/mcL (0.0-1.3); Monocytes % 6.2 %; Neutrophils # 5.3 K/mcL (1.6-8.9); Platelet Count 186 K/mcL (140-400); Red Blood Count 3.89 M/mcL (4.19-5.50); Red Cell Distribution Width 15.1 % (11.5-14.5); Segmented Neutrophils % 68.6 %
[2016-04-25 04:52] LABS: BUN/Creatinine Ratio 40 (6-26); Calcium 8.9 mg/dL (8.6-10.8); Carbon Dioxide 28 mEq/L (19-29); Chloride 103 mEq/L (98-109); Glucose 124 mg/dL (70-99); Magnesium 2.2 mg/dL (1.6-2.6); Osmolality,Calculated 302 (280-300); Potassium 4.3 mEq/L (3.5-4.5); Sodium 139 mEq/L (136-145); eGFR For African Americans > 60 (> 60); eGFR For Non-African Americans 58 (> 60)
[2016-04-25 04:54] LABS: Blood Urea Nitrogen 49 mg/dL (8-26)
[2016-04-25] MEDS: *HR* Heparin 5,000 UNIT/ML VIAL SQ SCH ×2 (06:16→18:39)
--- NOTE | 2016-04-25 06:36 | Cardiothoracic Progress Note ---
Date of Encounter: 04/25/16 Time of Encounter: 06:34 - Assessment and plan (1) Hydropneumothorax Current Visit: Yes Status: Acute Creatinine is down to 1.23. Hopefully, he can be scheduled for decortication soon. - Subjective Interval history: The patient has no complaints. Vital Signs, Last 4 Hours Temp Pulse Resp BP Pulse Ox 04/25/16 04:24 97.5 F L 70 16 119/56 94 L 04/25/16 03:37 16 96 Oxgyen Flow Rate Oxygen Flow Rate (LPM) 0 Clinical Data, last 8 Hours Output, Chest Tube Drainage 30 Amount [Right Upper] Output, Chest Tube Drainage 30 Amount [Right Upper] Output, Chest Tube Drainage 40 Amount [Right Upper] Output, Urine Amount 370 Output, Urine Amount 100 Weight 04/23/16 04/24/16 04/25/16 23:59 23:59 23:59 Weight 93 kg 94 kg Lungs have decreased breath sounds at the right base. Chest tube drainage is minimal. Heart is in a paced rhythm. - Labs 04/25/16 03:50 04/25/16 03:50 Lab Results, Last 24 hours 04/25/16 04/25/16 03:50 03:50 WBC 7.8 Hgb 11.9 L Hct 36.3 L Plt Count 186 Sodium 139 Potassium 4.3 Chloride 103 Carbon Dioxide 28 BUN 49 H D Creatinine 1.23 Glucose 124 H Calcium 8.9 Magnesium 2.2 Consult Discharge Plan - Plan Referrals: Amauri Lama MD [Partnered Physician] - 04/25/16 11:30 am
[2016-04-25] MEDS: Aspirin Enteric Coated 81 MG Tablet PO SCH (08:06)
[2016-04-25] MEDS: Insulin LISPRO 300 UNITS/3 ML VIAL SQ SCH ×4 (08:06→20:24)
--- NOTE | 2016-04-25 08:57 | Nephrology Progress Note ---
Date of Encounter: 04/25/16 Time of Encounter: 09:45 - Assessment and Plan (1) SHELIA (acute kidney injury) Current Visit: Yes Status: Acute SHELIA most likely related to recent overdiuresis R/T CHF, superimposed on CKD in setting DM, HTN, diuretics and advancing age contributing. Will hold diuretics, Lisinopril and avoid other nephrotoxins. Renal fct improving, creat 1.23, GFR 58. Urine output 950. Renal US essentially negative except PVR 334cc and prostomegaly, outlet obstruction. Started on Flomax with Urology on board. Possible decortication scheduled for tomorrow, will follow. Renal workup in progress, Uric acid 13.6, will start on Allopurinol. PTH 97.8, will just monitor level. Subjective Interval history: States doing well, breathing easy. States scheduled for decortication tomorrow morning. Objective - Vital Signs Vital signs: Vital Signs Temp Pulse Resp BP Pulse Ox 04/25/16 07:42 97.9 F 69 16 116/66 97 04/25/16 04:24 97.5 F L 70 16 119/56 94 L 04/25/16 03:37 16 96 04/25/16 00:32 97.7 F 69 16 132/67 97 04/24/16 20:00 98.0 F 70 16 141/62 97 04/24/16 16:13 16 95 04/24/16 15:29 97.7 F 72 16 116/66 96 04/24/16 15:27 86 04/24/16 12:19 70 04/24/16 12:15 97.7 F 71 18 138/58 96 04/24/16 11:08 16 96 04/24/16 09:21 71 Intake and Output 04/24/16 04/25/16 04/25/16 23:59 07:59 15:59 Intake Total 540 / 540 Output Total 300 / 300 470 / 470 Balance 240 / 240 -470 / -470 Intake: Oral 540 / 540 Output: Urine 250 / 250 370 / 370 Chest Tube Drainage 50 / 50 100 / 100 Right Upper 50 / 50 100 / 100 Other: Meal Dinner Percent of Meal Consumed 5% Stool Size Large Stool Consistency soft Stool Color Brown Blood Glucose* 142 162 - General Appearance General appearance: Present: well-developed, well-nourished, appears started age EENT: Present: mucous membranes moist Neck: Present: no JVD Respiratory: Present: clear Additional Comments: left pleuravac Cardiology: Present: no edema Additional Comments: paced rhythm Gastrointestinal: Present: normoactive bowel sounds, no tenderness Integumentary: Present: warm and dry Neurologic: Present: alert and oriented x3 Psychiatric: Present: mood/affect appropriate, cooperative - Lab 04/25/16 03:50 04/25/16 03:50 Most recent lab results Calcium 8.9 mg/dL (8.6-10.8) 04/25/16 03:50 Phosphorus 3.0 mg/dL (2.3-4.7) 04/25/16 03:50 Magnesium 2.2 mg/dL (1.6-2.6) 04/25/16 03:50 Consult Discharge Plan - Plan Referrals: Amauri Lama MD [Partnered Physician] - 04/25/16 11:30 am
--- NOTE | 2016-04-25 10:11 | Internal Med Progress Note ---
Date of Encounter: 04/25/16 Time of Encounter: 10:09 - Assessment and plan (1) Lbqaa-ky-bqimjjq kidney injury Current Visit: Yes Status: Acute Assessment and plan: Renal function Improved from previous day Will continue to hold KRISTIN/ARB, LAsix at this time Nephro eval appreciated Renal US: Unremarkable US of the kidneys however noted to have Postvoidal residual volume of 334cc with prostamegaly, likely outlet obstruction. Continue Flomax Urology eval noted, patient to follow up as outpatient continue to avoid nephrotoxic agents Allopurinol started by nephrology given uric acid level of 13.6 (2) Hydropneumothorax Current Visit: Yes Status: Acute Assessment and plan: Chronic on chart review Sputum culture, blood and pleural fluid culture no growth Continue po Levaquin for bronchitis Pain control ECHO LVEF 50% Thoracic surgery and Pulmonolgy eval appreciated Awaiting surgical intervention pending improvement of renal function-Likely Decortication in am by surgery (3) CAD (coronary artery disease) Current Visit: Yes Status: Chronic Assessment and plan: Chronic, stable, no Chest pain Continue home meds Qualifiers: Coronary Disease-Associated Artery/Lesion type: [place] artery [place] vs. transplanted heart: [place] heart Associated angina: without angina Qualified Code(s): I25.10 - Atherosclerotic heart disease of [place] coronary artery without angina pectoris (4) COPD (chronic obstructive pulmonary disease) Current Visit: Yes Status: Chronic Assessment and plan: Chronic stable, no wheezing on exam Duonebs prn Levofloxacin O2 by [place] Qualifiers: COPD type: unspecified COPD Qualified Code(s): J44.9 - Chronic obstructive pulmonary disease, unspecified (5) Diastolic CHF Current Visit: Yes Status: Chronic Assessment and plan: Does not appear to be in clinical exacerbation Hold home dose of Lasix and Metolazone Monitor I/O's, obtain daily weights Qualifiers: Congestive heart failure chronicity: chronic Qualified Code(s): I50.32 - Chronic diastolic (congestive) heart failure (6) Hypertension Current Visit: Yes Status: Chronic Assessment and plan: BP within acceptable range Continue BB Qualifiers: Hypertension type: essential hypertension Qualified Code(s): I10 - Essential (primary) hypertension (7) Insulin dependent diabetes mellitus Current Visit: Yes Status: Chronic Assessment and plan: Continue SSI ACHS accuchecks Better control of blood glucose noted will continue Levemir to 35units qHS will continue to monitor fingerstick and blood glucose (8) Paroxysmal a-fib Current Visit: Yes Status: Chronic Assessment and plan: Not on anticoagulation due to GI bleed rate controlled with BB (9) S/P MVR (mitral valve replacement) Current Visit: Yes Status: Chronic (10) DVT prophylaxis Current Visit: Yes Status: Acute Assessment and plan: Heparin SQ - Subjective Interval history: Pt seen and examined with present at bedside. Patient resting in chair and reports of improvement in his urination. Good urinary output reported. Improvement in renal function noted. No overnight issues reported. - Constitutional Vitals: Temp Pulse Resp BP Pulse Ox 97.9 F 68 16 116/66 97 04/25/16 07:42 04/25/16 09:33 04/25/16 07:42 04/25/16 07:42 04/25/16 07:42 General appearance: Present: cooperative, A&O X 3, pleasant, no acute distress, obese, answers questions appropriately - Head Head exam: Present: atraumatic, normocephalic - Eye Eye exam: Present: normal appearance, conjuntiva pink, sclera anicteric - Respiratory Respiratory exam: Present: CTAB (right chest tube in place). Absent: respiratory distress, wheezes - Cardiovascular Cardiovascular exam: Present: RRR, +S1, +S2 - GI/Abdominal GI/Abdominal exam: Present: normal bowel sounds, soft. Absent: tenderness - Extremities Exam Extremities exam: Present: warm, radial pulses palpable and symetrical. Absent : calf tenderness, pedal edema - Neurological Exam Neurological exam: Present: alert, oriented X3, no focal deficits - Psychiatric Psychiatric exam: Present: normal affect, normal mood Internal Medicine: Result - Labs CBC & Chem 7: 04/25/16 03:50 04/25/16 03:50 Labs: Short CBC 04/25/16 Range/Units 03:50 WBC 7.8 (4.3-11.1) K/mcL Hgb 11.9 L (12.9-16.9) g/dL Hct 36.3 L (37.5-50.1) % Plt Count 186 (140-400) K/mcL Neutrophils # 5.3 (1.6-8.9) K/mcL BMP 04/25/16 03:50 Sodium 139 Potassium 4.3 Chloride 103 Carbon Dioxide 28 BUN 49 H D Creatinine 1.23 Glucose 124 H Calcium 8.9 - ABG Interpretation ABG results: PT/INR, D-dimer PT 12.4 Seconds (9.4-12.1) H 04/18/16 15:50 - Impressions Impressions Chest X-Ray 04/25/16 00:01 IMPRESSION: 1. Right-sided chest tube unchanged in position. 2. Persistent right basilar hydropneumothorax. 3. Persistent enlargement of the cardiac silhouette. 4. Mild patchy opacification of the right mid and lower lung. D/ / Carlo Kearney MD / Carlo Kearney MD Interpreting Provider: Carlo Kearney MD Consult Discharge Plan - Plan Referrals: Amauri Lama MD [Partnered Physician] - 04/25/16 11:30 am
[2016-04-25] MEDS: *HR* HYDROcodone/Acet 5/325 mg TABLET PO PRN ×2 (10:18→21:07)
[2016-04-25] MEDS: Budesonide/Formoterol 160/4.5 MDI IH SCH ×2 (10:34→21:05)
[2016-04-25] MEDS: levoFLOXacin 750 MG TABLET PO SCH (13:09)
--- NOTE | 2016-04-25 13:34 | Anesthesia Evaluation PreOp ---
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 Other Medical History: Renal (acute on chronic kidney injury), Diabetes Type II Anesthesia History: No Prior Anesthetic Complications, Past Anesthesia (CABG, MVR, AICD) Alcohol Use: none Drug use: none Medications and Allergies Aspirin [Adult Low Dose Aspirin EC] 81 mg PO QAM 03/21/15 [History] Ferrous Sulfate 324 mg PO QPM 03/21/15 [History] Furosemide [Lasix] 40 mg PO BID 03/21/15 [History] Insulin Glargine,Hum.rec.anlog [Lantus Solostar] 30 unit SQ HS 03/21/15 [History ] Lisinopril [Zestril] 5 mg PO QAM 03/21/15 [History] Metoprolol [Lopressor] 50 mg PO BID 03/21/15 [History] Potassium Chloride [K-Tab ER] 10 meq PO QAM 03/21/15 [History] Pravastatin Sodium [Pravachol] 80 mg PO QPM 03/21/15 [History] Zinc Acetate [Galzin] 50 mg PO QAM 03/21/15 [History] Glucagon,Human Recombinant [Glucagon Emergency Kit] 1 mg IJ ONCE PRN 04/18/16 [ History] Insulin LISPRO [Humalog Kwikpen U-100] 10 unit SQ TIDWM 04/18/16 [History] Metolazone [Zaroxolyn] 2.5 mg PO Q48H 04/18/16 [History] Multivitamin [Multi-Day Vitamins] 1 each PO DAILY 04/18/16 [History] Tramadol HCl [Tramadol HCl] 50 mg PO QID PRN 04/18/16 [History] Allergies clopidogrel [From Plavix] Adverse Reaction (Verified 04/18/16 15:19) Itching - Meds/Allergy Pre-op Review Medications Reviewed: Yes Allergies Reviewed: Yes Beta Blockers on Current Med List: Yes Anesthesia Results - Labs 03/02/17 03:50 04/25/16 03:50 - Imaging Additional studies: Echo shows LVEF 50%, diastolic dysfunction Anesthesia Exam Selected Entries 04/25/16 11:13 Temperature 98.0 F Pulse Rate 70 Respiratory Rate 16 Blood Pressure 132/67 O2 Sat by Pulse Oximetry 96 Height: 70in Weight: 94kg Anesthesia Assess/Plan ASA Score: 3 Modified [place] Scale for Level of Consciousness: Cooperative, oriented, and tranquil Anesthetic Plan: General Monitoring Plan: Standard Monitors, A-Line Recovery Plan: ICU (Discussed risks of GA, need for ramakrishna, concerns around AICD and positioning. Questions answered and agrees to proceed.)
[2016-04-25 17:51] LABS: Alpha 2 Globulin (PEP) 1.13 g/dL (0.48-1.05); Beta Globulin (PEP) 1.09 g/dL (0.48-1.10)
[2016-04-25] MEDS: Insulin DETEMIR 100 UNIT/ML X5UNITS SQ SCH (20:23)
[2016-04-26] MEDS: Ipratropium/Albuterol Neb 3 ML IH SCH ×4 (03:11→22:21)
[2016-04-26] MEDS: *HR* HYDROcodone/Acet 5/325 mg TABLET PO PRN (05:25)
[2016-04-26] MEDS: *HR* Heparin 5,000 UNIT/ML VIAL SQ SCH ×6 (05:30→20:51)
[2016-04-26] MEDS ORDERED: Heparin 1,000 UNITS/500 mL NS 500 ML ONE (06:35)
[2016-04-26] MEDS ORDERED: *HR* Phenylephrine 10 MG/ML VIAL ONE (06:44)
[2016-04-26] MEDS ORDERED: *HR* Rocuronium Bromide 50 MG/5 ML VIAL ONE ×2 (06:44→08:41)
[2016-04-26] MEDS ORDERED: *HR* Etomidate 20 MG/10 ML AMPUL IVP ONE (06:44)
[2016-04-26] MEDS ORDERED: Ondansetron 4 MG/2 ML VIAL ONE (06:45)
[2016-04-26] MEDS ORDERED: Dexamethasone 4 MG/ML VIAL ONE (06:45)
[2016-04-26] MEDS ORDERED: *HR* Midazolam HCl 5 MG/5 ML VIAL IVP ONE (06:47)
[2016-04-26] MEDS ORDERED: *HR* FentaNYL (PF) 250 MCG/5 ML VIAL ONE (06:47)
[2016-04-26] MEDS ORDERED: ceFAZolin 2,000 MG in D5% in Water 100 ML IVPB ONE (07:45)
--- NOTE | 2016-04-26 08:18 | Event Note ---
Date of Encounter: 04/26/16 Time of Encounter: 08:00 In OR- will see tomorrow.
[2016-04-26 08:34] LABS: IFE Reflexed NOT DONE
--- NOTE | 2016-04-26 08:55 | Anesthesia Procedures ---
Date of Encounter: 04/26/16 Time of Encounter: 07:45 Procedures: Anesthesia - Arterial Line Consent obtained: written consent Time out performed: Yes Sedation: Versed (mg): 3 Sedation: Fentanyl (mcg): 50 Supplemental Oxygen via Nasal Cannula (L/min): 2 Size (Gauge): 20 Length (inches): 5 Technique Used: sterile prep, guide wire technique, direct puncture technique Post-Procedure: line taped into place, dry sterile dressing placed Patient tolerated procedure: well, no complications Complications: none Site: Brachial L (poor radial pulses bilaterally. Attempt x 2 on left brachial. Unable to advance guidewire on first attempt. Reposition and able to advance guidewire. Catheter placed without issue.)
[2016-04-26] MEDS ORDERED: *HR* Morphine 10 MG/ML VIAL ONE (09:15)
--- NOTE | 2016-04-26 10:35 | Operative Note ---
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 Post-op diagnosis: same Procedure: 1. Right posterior lateral thoracotomy 2. Decortication, partial. 3. Chemical pleurodesis. Implants: None. Complications: None. Anesthesia: GETA Local Anesthetics: 0.5% Sensorcaine HCL SubQ (cc) (30) Surgeon: Gela Nazario Photo Graphics Librarian: Lambert Tyson Estimated blood loss (cc): 300 Specimen: None. Condition: stable Disposition: ICU Procedure in Detail: INDICATIONS FOR OPERATION: The patient is a 75-year-old man with CAD, chronic atrial fibrillation, diabetes mellitus, type II, hypertension. And COPD. The patient underwent mitral valve replacement in December 2013 followed by a biventricular pacer. The patient and the family state that since his operation he has had lower extremity swelling and shortness of breath. The patient was evaluated by Dr. Orozco in the office who found the patient had a large loculated right basilar pneumothorax. Initially, he was reluctant to undergo any type of procedure; however, consented to chest tube placement with hopes of draining the pleural effusion. After the chest tube was placed patient was found to have a trapped right lower lobe due to the chronicity of the pleural effusion. The patient was told that he would require a thoracotomy with decortication in order to help reexpand the right lower lobe and prevent reaccumulation of the pleural effusion. FINDINGS AT OPERATION: The patient had a tenacious , 2-3 mm thick parietal pleural peel and visceral pleural peel surrounding all lobes. He also had multiple adhesions in the region of the right upper lobe. DESCRIPTION OF OPERATION: After obtaining informed consent from the patient, he was taken to the operative risk satisfactory general endotracheal anesthetic was induced. Appropriate monitoring lines were placed and a double-lumen endotracheal tube was inserted. The patient was then turned in the left lateral decubitus position , and his right lateral chest was prepped and draped in a sterile fashion. A standard posterior lateral thoracotomy incision was then made through the skin and subcutaneous tissue. The latissimus dorsi muscle group was divided and the serratus anterior musculature was reflected medially. The fifth intercostal space was identified and opened. Upon opening the pleural space. Dense adhesions between the lung and the chest wall and initially it was difficult to expose the lung adequately. After slow tedious dissection of the adhesions between the right lower lobe and the chest wall excision exposure was gradually obtained. The parietal pleural peel and the visceral peel was then taken down using combination of blunt finger dissection and electrocautery. The visceral peel was so densely adherent to the lung parenchyma that it was difficult to remove without causing numerous air leaks. After the majority of the visceral peel was removed, the 8 hemithorax was irrigated with 2 L of saline solution. Two 32 [place] chest tubes were placed, one anteriorly and one posteriorly. The ribs were reapproximated using #1 Vicryl suture and the serratus muscle group, latissimus dorsi muscle group, subcutaneous tissue, and skin edges were reapproximated. The skin and subcutaneous tissue was anesthetized with 0.5% Marcaine without epinephrine (30 mL). Sterile dressings were then applied. The patient was transferred to the ICU in satisfactory postoperative condition. There were no intraoperative complications, and instrument, needle, and sponge count were correct and operation.
[2016-04-26] MEDS: Budesonide/Formoterol 160/4.5 MDI IH SCH ×3 (10:37→22:26)
[2016-04-26] MEDS: *HR* Morphine 2 MG/ML SYRINGE IVP PRN (11:16)
[2016-04-26] MEDS ORDERED: *HR* HYDROmorphone 20 MG/20 ML PCA IVC PRN (11:21)
[2016-04-26 11:32] LABS: Basophils % 0.2 %; Eosinophils # 0.2 K/mcL (0.0-0.6); Eosinophils % 1.4 %; Hemoglobin 11.9 g/dL (12.9-16.9); Immature Granulocytes % 0.4 % (0-4); Immature Platelets 4.3 % (1.1-6.1); Lymphocytes # 1.2 K/mcL (0.6-4.6); Lymphocytes % 8.5 %; Mean Corpuscular HGB Conc 33.1 g/dL (31.6-35.5); Mean Corpuscular Hemoglobin 30.4 pg (28.0-33.3); Mean Corpuscular Volume 91.8 fL (83.0-100.0); Mean Platelet Volume 10.5 fL (9.4-12.4); Monocytes # 0.5 K/mcL (0.0-1.3); Monocytes % 3.3 %; Neutrophils # 11.9 K/mcL (1.6-8.9); Platelet Count 195 K/mcL (140-400); Red Blood Count 3.92 M/mcL (4.19-5.50); Segmented Neutrophils % 86.2 %
[2016-04-26 12:16] LABS: ABG Base Excess 4.2 mEq/L (-2.0 to 3.0); ABG HCO3 30.6 mEQ/L (21-27); ABG Oxygen Saturation 99 % (95-98); ABG PCO2 53 mmHg (35-45); ABG PH 7.37 pH Units (7.32-7.45); ABG PO2 135 mmHg (85-104); ABG TCO2 32.2 mEq/L (20-26); Blood Gas FiO2 28 %
[2016-04-26] MEDS: 0.9 % Sodium Chloride w KCl 20 MEQ/1,000 ML MLS IV SCH (13:00)
--- NOTE | 2016-04-26 14:06 | Internal Med Progress Note ---
Date of Encounter: 04/26/16 Time of Encounter: 14:04 - Assessment and plan (1) Hydropneumothorax Current Visit: Yes Status: Acute Assessment and plan: s/p Right posterior lateral thoracotomy with partial decortication and chemical pleurodesis Thoracic surgery consultation appreciated Pulmonary consultation appreciated continue post op care pain control patient received pre-op antibiotics (2) Hutbd-eh-moakkav kidney injury Current Visit: Yes Status: Acute Assessment and plan: Renal function Improved from previous day Will continue to hold KRISTIN/ARB, LAsix at this time Nephro eval appreciated Renal US: Unremarkable US of the kidneys however noted to have Postvoidal residual volume of 334cc with prostamegaly, likely outlet obstruction. Continue Flomax Urology eval noted, patient to follow up as outpatient continue to avoid nephrotoxic agents Allopurinol started by nephrology given uric acid level of 13.6 (3) CAD (coronary artery disease) Current Visit: Yes Status: Chronic Assessment and plan: Chronic, stable, no Chest pain Continue home meds Qualifiers: Coronary Disease-Associated Artery/Lesion type: [place] artery [place] vs. transplanted heart: [place] heart Associated angina: without angina Qualified Code(s): I25.10 - Atherosclerotic heart disease of [place] coronary artery without angina pectoris (4) COPD (chronic obstructive pulmonary disease) Current Visit: Yes Status: Chronic Assessment and plan: Chronic stable, no wheezing on exam Duonebs prn Levofloxacin O2 by [place] Qualifiers: COPD type: unspecified COPD Qualified Code(s): J44.9 - Chronic obstructive pulmonary disease, unspecified (5) Diastolic CHF Current Visit: Yes Status: Chronic Assessment and plan: Does not appear to be in clinical exacerbation Hold home dose of Lasix and Metolazone Monitor I/O's, obtain daily weights Qualifiers: Congestive heart failure chronicity: chronic Qualified Code(s): I50.32 - Chronic diastolic (congestive) heart failure (6) Hypertension Current Visit: Yes Status: Chronic Assessment and plan: BP within acceptable range Continue BB Qualifiers: Hypertension type: essential hypertension Qualified Code(s): I10 - Essential (primary) hypertension (7) Insulin dependent diabetes mellitus Current Visit: Yes Status: Chronic Assessment and plan: Continue SSI ACHS accuchecks Better control of blood glucose noted will continue Levemir to 35units qHS will continue to monitor fingerstick and blood glucose (8) Paroxysmal a-fib Current Visit: Yes Status: Chronic Assessment and plan: Not on anticoagulation due to GI bleed rate controlled with BB (9) S/P MVR (mitral valve replacement) Current Visit: Yes Status: Chronic (10) DVT prophylaxis Current Visit: Yes Status: Acute Assessment and plan: Heparin SQ - Subjective Interval history: Pt seen and examined with present at bedside. Patient s/p right posterior lateral thoracotomy with partial decortication and chemical pleurodesis. He is sleeping comfortably in bed and tolerated the procedure well. - Constitutional Vitals: Temp Pulse Resp BP Pulse Ox 96.3 F L 71 18 130/62 99 04/26/16 11:50 04/26/16 13:30 04/26/16 13:30 04/26/16 13:30 04/26/16 13:30 General appearance: Present: no acute distress, obese - Head Head exam: Present: atraumatic, normocephalic - Eye Eye exam: Present: conjuntiva pink, sclera anicteric - Respiratory Respiratory exam: Present: CTAB (equal air entry bilaterally, chest tube in place in the right lateral chest wall). Absent: respiratory distress, wheezes - Cardiovascular Cardiovascular exam: Present: RRR, +S1, +S2. Absent: diastolic murmur, gallop, rubs, systolic murmur - GI/Abdominal GI/Abdominal exam: Present: normal bowel sounds, soft, no peritoneal signs. Absent: distended, tenderness - Extremities Exam Extremities exam: Present: warm, radial pulses palpable and symetrical. Absent : calf tenderness, cyanotic, pedal edema - Neurological Exam Neurological exam: Present: alert - Psychiatric Psychiatric exam: Present: normal affect, normal mood Internal Medicine: Result - Labs CBC & Chem 7: 04/26/16 11:17 04/25/16 03:50 Labs: Short CBC 04/26/16 Range/Units 11:17 WBC 13.8 H D (4.3-11.1) K/mcL Hgb 11.9 L (12.9-16.9) g/dL Hct 36.0 L (37.5-50.1) % Plt Count 195 (140-400) K/mcL Neutrophils # 11.9 H (1.6-8.9) K/mcL - ABG Interpretation ABG results: ABG ABG pH 7.37 pH Units (7.32-7.45) 04/26/16 11:56 ABG pCO2 53 mmHg (35-45) H 04/26/16 11:56 ABG pO2 135 mmHg (85-104) H 04/26/16 11:56 ABG O2 Saturation 99 % (95-98) H 04/26/16 11:56 PT/INR, D-dimer PT 12.4 Seconds (9.4-12.1) H 04/18/16 15:50 - Impressions Impressions Chest X-Ray 04/26/16 10:30 IMPRESSION: Right thoracostomy tubes in place with a mild amount of subcutaneous emphysema. Right basilar pneumonia has improved with mild residual pneumothorax in the costophrenic angle. Persistent opacities in the right lung are otherwise unchanged. D/ / 04/26/2016 11:23:20 Faye Wagner MD / [email or web address] Interpreting Provider: Faye Wagner MD - VTE Documentation of Mechanical Device: Intermittent pneumatic compression device Consult Discharge Plan - Plan Referrals: Amauri Lama MD [Partnered Physician] - 04/25/16 11:30 am
[2016-04-26] MEDS: ceFAZolin 2,000 MG in D5% in Water 100 ML IVPB SCH (16:53)
[2016-04-26 17:00] LABS: BUN/Creatinine Ratio 34 (6-26); Blood Urea Nitrogen 43 mg/dL (8-26); Carbon Dioxide 26 mEq/L (19-29); Chloride 103 mEq/L (98-109); Glucose 193 mg/dL (70-99); Osmolality,Calculated 302 (280-300); Sodium 138 mEq/L (136-145); eGFR For African Americans > 60 (> 60); eGFR For Non-African Americans 57 (> 60)
[2016-04-26 17:01] LABS: Potassium 5.4 mEq/L (3.5-4.5)
[2016-04-26] MEDS: Insulin LISPRO 300 UNITS/3 ML VIAL SQ SCH ×4 (17:13→21:51)
[2016-04-26] MEDS: Aspirin Enteric Coated 81 MG Tablet PO SCH (17:14)
[2016-04-26] MEDS ORDERED: 0.9 % Sodium Chloride 1,000 ML IVC SCH (19:15)
[2016-04-26] MEDS: Insulin DETEMIR 100 UNIT/ML X5UNITS SQ SCH (21:51)
[2016-04-27] MEDS: ceFAZolin 2,000 MG in D5% in Water 100 ML IVPB SCH (00:22)
[2016-04-27 02:40] LABS: Basophils % 0.1 %; Hematocrit 38.5 % (37.5-50.1); Hemoglobin 12.3 g/dL (12.9-16.9); Immature Granulocytes % 0.5 % (0-4); Immature Platelets 4.7 % (1.1-6.1); Lymphocytes # 0.9 K/mcL (0.6-4.6); Lymphocytes % 7.9 %; Mean Corpuscular HGB Conc 31.9 g/dL (31.6-35.5); Mean Corpuscular Hemoglobin 30.2 pg (28.0-33.3); Mean Corpuscular Volume 94.6 fL (83.0-100.0); Mean Platelet Volume 10.5 fL (9.4-12.4); Monocytes # 0.6 K/mcL (0.0-1.3); Monocytes % 5.3 %; Neutrophils # 10.2 K/mcL (1.6-8.9); Platelet Count 191 K/mcL (140-400); Red Blood Count 4.07 M/mcL (4.19-5.50); Red Cell Distribution Width 15.1 % (11.5-14.5); Segmented Neutrophils % 86.2 %
[2016-04-27 02:49] LABS: BUN/Creatinine Ratio 36 (6-26); Blood Urea Nitrogen 45 mg/dL (8-26); Calcium 8.9 mg/dL (8.6-10.8); Carbon Dioxide 27 mEq/L (19-29); Chloride 102 mEq/L (98-109); Glucose 172 mg/dL (70-99); Osmolality,Calculated 300 (280-300); Potassium 5.3 mEq/L (3.5-4.5); Sodium 137 mEq/L (136-145); eGFR For African Americans > 60 (> 60); eGFR For Non-African Americans 57 (> 60)
[2016-04-27] MEDS: Ipratropium/Albuterol Neb 3 ML IH SCH ×4 (04:09→23:12)
[2016-04-27] MEDS: 0.9 % Sodium Chloride w KCl 20 MEQ/1,000 ML MLS IV SCH (04:34)
[2016-04-27 05:10] LABS: ABG Base Excess 4.6 mEq/L (-2.0 to 3.0); ABG HCO3 31.2 mEQ/L (21-27); ABG Oxygen Saturation 99 % (95-98); ABG PCO2 54 mmHg (35-45); ABG PH 7.37 pH Units (7.32-7.45); ABG PO2 131 mmHg (85-104); ABG TCO2 32.9 mEq/L (20-26); Blood Gas FiO2 28 %
[2016-04-27] MEDS: *HR* Heparin 5,000 UNIT/ML VIAL SQ SCH ×2 (06:04→17:05)
[2016-04-27] MEDS: Insulin LISPRO 300 UNITS/3 ML VIAL SQ SCH ×4 (08:16→20:39)
[2016-04-27] MEDS: Aspirin Enteric Coated 81 MG Tablet PO SCH (08:16)
--- NOTE | 2016-04-27 09:04 | Cardiothoracic Progress Note ---
Date of Encounter: 04/27/16 Time of Encounter: 09:01 - Assessment and plan (1) Pleural effusion Current Visit: No Status: Acute The patient is recovering well from his right thoracotomy and decortication. He remains extubated and is breathing comfortably. He has serosanguineous drainage from his chest tubes and air leaks in both tubes. The chest x-ray shows no pneumothorax, which is improved from his preoperative chest x-ray showing a right basilar pneumothorax. Chest tubes remained in place for several days. The arterial line will be removed. The patient will be transferred to the stepdown unit later today. The assessment and plan as outlined above was discussed with the patient and/or family members who expressed understanding and agreement. All questions were answered. - Subjective Procedure(s) Performed: POD#1 S/P Right thoracotomy with decortication Interval history: The patient is resting comfortably in his hospital bed. He is breathing comfortably. He has no complaints. Vital Signs, Last 4 Hours Temp Pulse Resp BP Pulse Ox 04/27/16 08:16 84 16 149/60 98 04/27/16 07:55 97.5 F L 04/27/16 06:00 83 20 144/53 99 Oxgyen Flow Rate Oxygen Flow Rate (LPM) 2 Clinical Data, last 8 Hours Output, Chest Tube Drainage 40 Amount [Right Lateral Chest #2 ] Output, Chest Tube Drainage 40 Amount [Right Lateral Chest #2 ] Output, Chest Tube Drainage 50 Amount [Right Lateral Chest #2 ] Output, Chest Tube Drainage 30 Amount [Right Upper] Output, Chest Tube Drainage 30 Amount [Right Upper] Output, Chest Tube Drainage 34 Amount [Right Upper] Weight 04/25/16 04/26/16 04/27/16 23:59 23:59 23:59 Weight 96.3 kg 96.3 kg - Physical Examination General: Conversant, No Apparent Distress Neck: No JVD, Normal carotid pulses Cardiac: Reg Rate and Rhythm, Normal S1 and S2, No Murmur Incision: No signs of infection, Dry/intact dressing Sternum: Stable Chest tubes: Minimal drainage, Other (Moderate air leak.) Lungs: Normal Breath Sounds, No Wheeze, Rales, Rhonchi Neuro: Alert and responsive, No focal deficits noted Vascular: Normal capillary refill Extremities: No Clubbing, No Cyanosis, No Edema - Labs 04/27/16 02:20 04/27/16 02:20 Lab Results, Last 24 hours 04/26/16 04/26/16 04/27/16 11:17 16:42 02:20 WBC 13.8 H D 11.8 H Hgb 11.9 L 12.3 L Hct 36.0 L 38.5 Plt Count 195 191 Sodium 138 Potassium 5.4 H D Chloride 103 Carbon Dioxide 26 BUN 43 H Creatinine 1.25 Glucose 193 H Calcium 9.0 04/27/16 02:20 WBC Hgb Hct Plt Count Sodium 137 Potassium 5.3 H Chloride 102 Carbon Dioxide 27 BUN 45 H Creatinine 1.25 Glucose 172 H Calcium 8.9 - Imaging Chest Xray: image reviewed (No pneumothorax. Right basilar consolidation.) - VTE Documentation of Mechanical Device: Intermittent pneumatic compression device Consult Discharge Plan - Plan Referrals: Amauri Lama MD [Partnered Physician] - 04/25/16 11:30 am
[2016-04-27] MEDS: Budesonide/Formoterol 160/4.5 MDI IH SCH ×2 (09:30→23:12)
[2016-04-27] MEDS: *HR* HYDROcodone/Acet 5/325 mg TABLET PO PRN (10:17)
[2016-04-27] MEDS ORDERED: D5% in Water 1,000 ML IV PRN (10:32)
[2016-04-27] MEDS ORDERED: Dextrose Gel 15 GM PO PRN ×2 (10:32)
[2016-04-27] MEDS ORDERED: *HR* Dextrose 50 % in Water (Syg) 50 ML SYRINGE IVP PRN (10:32)
[2016-04-27] MEDS ORDERED: Acetaminophen 325 MG TABLET PO PRN (10:32)
[2016-04-27] MEDS ORDERED: Ondansetron ODT 4 MG TAB.RAPDIS SL PRN (10:32)
[2016-04-27] MEDS ORDERED: Albuterol 2.5 MG/3 ML NEBULIZER IH PRN (10:32)
[2016-04-27] MEDS ORDERED: Naloxone 0.4 MG/ML INJ IVP PRN (10:32)
[2016-04-27 10:57] LABS: Urine Collection Duration RANDOM hr; Urine Collection Volume RANDOM mL
--- NOTE | 2016-04-27 11:42 | Nephrology Progress Note ---
Date of Encounter: 04/27/16 Time of Encounter: 11:40 - Assessment and Plan (1) SHELIA (acute kidney injury) Current Visit: Yes Status: Acute Prerenal secondary to diuretics with KRISTIN inhibitor on board. Diuretics and KRISTIN inhibitor have been DC'd, receiving NS at 50 mL per hour. Serum cr improved and stabilizing at 1.2. Mild hyperkalemia, ivf with kcl d/c ed. f/u renal panel in a.m Urine retention; continue Cash, tamsulosin CHF sec to diastolic dysfunction. 2-D echo 04/20/2016 LVEF 50% diastolic dysfunction, no Pulm HTN Plan to restart lasix in the next few days depending on volume status Subjective Principal diagnosis: f/u of SHELIA Interval history: Patient in ICU s/p rt thoracotomy and decortication. 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 On 4 L of nasal oxygen. Objective - Vital Signs Vital signs: Vital Signs Temp Pulse Resp BP Pulse Ox 04/27/16 10:19 86 16 143/59 98 04/27/16 09:00 70 16 123/56 98 04/27/16 08:16 84 16 149/60 98 04/27/16 07:55 97.5 F L 04/27/16 06:00 83 20 144/53 99 04/27/16 05:00 85 20 148/53 99 04/27/16 04:50 97.9 F 04/27/16 04:10 19 145/54 100 04/27/16 04:00 79 20 147/58 100 04/27/16 03:53 80 04/27/16 03:00 80 18 150/56 100 04/27/16 02:00 82 18 150/57 100 04/27/16 01:00 85 20 153/57 100 04/27/16 00:42 97.0 F L 04/27/16 00:00 86 16 152/57 100 04/26/16 23:39 89 04/26/16 23:00 89 18 159/57 94 L 04/26/16 22:21 20 153/58 97 04/26/16 22:00 87 18 149/63 98 04/26/16 21:00 97.0 F L 84 18 160/62 100 04/26/16 20:00 82 20 148/68 100 04/26/16 19:50 87 04/26/16 19:07 82 16 139/66 100 04/26/16 19:00 83 22 136/47 100 04/26/16 18:12 79 16 140/66 100 04/26/16 17:59 78 04/26/16 17:15 16 96 04/26/16 17:00 77 16 133/66 99 04/26/16 16:00 97.5 F L 73 16 130/64 98 04/26/16 15:00 77 18 125/60 98 04/26/16 14:00 71 18 136/61 98 04/26/16 13:30 71 18 130/62 99 04/26/16 12:54 69 04/26/16 11:53 69 16 128/56 97 04/26/16 11:50 96.3 F L 69 16 128/56 97 Intake and Output 04/26/16 04/27/16 04/27/16 23:59 07:59 15:59 Intake Total 600 / 600 300 / 300 Output Total 664 / 664 384 / 384 140 / 140 Balance -64 / -64 -84 / -84 -140 / -140 Intake: IV Fluids 600 / 600 KCl 20 mEq in 0.9% Sodium 500 / 500 Chloride 20 meq In 1,000 ml @ 50 mls/hr IV .Q20H [facility] Rx#:[id number] Ancef 2,000 MG In 100 / 100 Dextrose 5% 100 ML @ 200 mls/hr IVPB Q8HR [facility] Rx#: [id number] Oral 300 / 300 Output: Catheter 475 / 475 200 / 200 Chest Tube Drainage 189 / 189 184 / 184 140 / 140 Right Lateral Chest #2 120 / 120 150 / 150 80 / 80 Right Upper 69 / 69 34 / 34 60 / 60 Other: Weight 96.3 kg Blood Glucose* 209 112 Patient Weight 04/27/16 23:59 Weight 96.3 kg - General Appearance Exam: CVS; s1s2 present, regular, no murmurs RESP; decreased air entry on the right, clear to auscultation ABD; soft, NT, BS present, no organomegaly, EXT; no edema, DP pulses palpable. 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 -3, CN grossly intact - Lab 04/27/16 02:20 04/27/16 02:20 Most recent lab results ABG pH 7.37 pH Units (7.32-7.45) 04/27/16 04:46 ABG pCO2 54 mmHg (35-45) H 04/27/16 04:46 ABG pO2 131 mmHg (85-104) H 04/27/16 04:46 ABG HCO3 31.2 mEQ/L (21-27) H 04/27/16 04:46 ABG O2 Saturation 99 % (95-98) H 04/27/16 04:46 Calcium 8.9 mg/dL (8.6-10.8) 04/27/16 02:20 Phosphorus 3.0 mg/dL (2.3-4.7) 04/25/16 03:50 Magnesium 2.2 mg/dL (1.6-2.6) 04/25/16 03:50 - VTE Documentation of Mechanical Device: Intermittent pneumatic compression device Consult Discharge Plan - Plan Referrals: Amauri Lama MD [Partnered Physician] - 04/25/16 11:30 am
[2016-04-27] MEDS: levoFLOXacin 750 MG TABLET PO SCH (12:08)
[2016-04-27] MEDS: Multivit/Ca/Min/Fe/FA 1 TAB TABLET PO SCH (12:10)
[2016-04-27] MEDS: 0.9 % Sodium Chloride 1,000 ML IVC SCH (17:03)
[2016-04-27] MEDS: Insulin DETEMIR 100 UNIT/ML X5UNITS SQ SCH (20:38)
[2016-04-28] MEDS: *HR* HYDROcodone/Acet 5/325 mg TABLET PO PRN (01:10)
[2016-04-28] MEDS: Ipratropium/Albuterol Neb 3 ML IH SCH ×4 (04:55→22:39)
[2016-04-28] MEDS: *HR* Heparin 5,000 UNIT/ML VIAL SQ SCH ×2 (05:02→18:23)
[2016-04-28 05:37] LABS: Hematocrit 32.8 % (37.5-50.1); Hemoglobin 10.7 g/dL (12.9-16.9); Mean Corpuscular HGB Conc 32.6 g/dL (31.6-35.5); Mean Corpuscular Hemoglobin 30.9 pg (28.0-33.3); Mean Corpuscular Volume 94.8 fL (83.0-100.0); Mean Platelet Volume 11.1 fL (9.4-12.4); Platelet Count 180 K/mcL (140-400); Red Blood Count 3.46 M/mcL (4.19-5.50); Red Cell Distribution Width 15.2 % (11.5-14.5)
[2016-04-28 05:53] LABS: Calcium 8.5 mg/dL (8.6-10.8); Potassium 4.9 mEq/L (3.5-4.5)
[2016-04-28 05:54] LABS: Albumin 2.5 g/dL (3.5-5.0); Calcium 8.5 mg/dL (8.6-10.8); Phosphorous 4.1 mg/dL (2.3-4.7)
[2016-04-28] MEDS: Multivit/Ca/Min/Fe/FA 1 TAB TABLET PO SCH (07:45)
[2016-04-28] MEDS: Aspirin Enteric Coated 81 MG Tablet PO SCH (07:48)
[2016-04-28] MEDS: Insulin LISPRO 300 UNITS/3 ML VIAL SQ SCH ×4 (07:48→20:17)
--- NOTE | 2016-04-28 08:09 | Cardiothoracic Progress Note ---
Date of Encounter: 04/28/16 Time of Encounter: 08:07 - Assessment and plan (1) Pleural effusion Current Visit: No Status: Acute The patient is recovering well from his right thoracotomy and decortication. He remains extubated and is breathing comfortably. He has serosanguineous drainage from his chest tubes and an air leak in chest tube #1. The chest x-ray shows no pneumothorax, which is improved from his preoperative chest x-ray showing a right basilar pneumothorax. Chest tubes remained in place for several days. The patient will sit in a chair several times today and possibly begin ambulating later today. The assessment and plan as outlined above was discussed with the patient and/or family members who expressed understanding and agreement. All questions were answered. - Subjective Procedure(s) Performed: POD#2 S/P Right thoracotomy with decortication Interval history: The patient is resting comfortably in his hospital bed. He is breathing comfortably. He has no complaints. Vital Signs, Last 4 Hours Temp Pulse Resp BP Pulse Ox 04/28/16 05:00 98.3 F 70 18 117/53 98 04/28/16 04:56 20 93 L Oxgyen Flow Rate Oxygen Flow Rate (LPM) 2 Clinical Data, last 8 Hours Output, Chest Tube Drainage 20 Amount [Right Lateral Chest #2 ] Output, Chest Tube Drainage 30 Amount [Right Lateral Chest #2 ] Output, Chest Tube Drainage 20 Amount [Right Upper] Output, Chest Tube Drainage 30 Amount [Right Upper] Weight 04/26/16 04/27/16 04/28/16 23:59 23:59 23:59 Weight 96.3 kg 96.3 kg 96.5 kg - Physical Examination General: Conversant, No Apparent Distress Neck: No JVD, Normal carotid pulses Cardiac: Reg Rate and Rhythm, Normal S1 and S2, No Murmur Incision: No signs of infection, Dry/intact dressing Sternum: Stable Chest tubes: Minimal drainage, Air leak (Chest tube #1.) Lungs: Normal Breath Sounds, No Wheeze, Rales, Rhonchi Neuro: Alert and responsive, No focal deficits noted Vascular: Normal capillary refill Extremities: No Clubbing, No Cyanosis, No Edema - Labs 04/28/16 04:50 04/28/16 04:50 Lab Results, Last 24 hours 03/05/17 03/05/17 03/05/17 04:50 04:50 04:50 WBC 13.4 H Hgb 10.7 L D Hct 32.8 L Plt Count 180 Sodium 136 136 Potassium 4.9 H 5.0 H Chloride 102 102 Carbon Dioxide 25 25 BUN 63 H D 64 H Creatinine 1.75 H 1.77 H Glucose 92 92 Calcium 8.5 L 8.5 L - Imaging Chest Xray: image reviewed (Decreased size of right costophrenic pneumothorax. No change in multiple right lower lobe and right middle lobe airspace opacities. ) - VTE Documentation of Mechanical Device: Intermittent pneumatic compression device Consult Discharge Plan - Plan Referrals: Amauri Lama MD [Partnered Physician] - 04/25/16 11:30 am
[2016-04-28] MEDS: Budesonide/Formoterol 160/4.5 MDI IH SCH ×2 (09:11→22:39)
[2016-04-28] MEDS: 0.9 % Sodium Chloride 1,000 ML IVC SCH ×3 (09:43→22:26)
[2016-04-28] MEDS: *HR* HYDROmorphone 20 MG/20 ML PCA IVC PRN (10:39)
--- NOTE | 2016-04-28 11:26 | Nephrology Progress Note ---
Date of Encounter: 04/28/16 Time of Encounter: 11:01 - Assessment and Plan (1) SHELIA (acute kidney injury) Current Visit: Yes Status: Acute 1 ARF. Prerenal secondary to diuretics with KRISTIN inhibitor on board. Serum cr was at isabella of 1.2, has trended up to 1.7 today, no obvious identifiable cause Diuretics and KRISTIN inhibitor on hold. Continue NS, increase rate to 50 mL per hour. 2. Mild hyperkalemia, ivf with kcl d/c ed. f/u renal panel in a.m 3. Urine retention; continue tamsulosin. Russell removed this morning, check postvoid residual 4. CHF sec to diastolic dysfunction. 2-D echo 04/20/2016 LVEF 50% diastolic dysfunction, no Pulm HTN Subjective Principal diagnosis: f/u of SHELIA Interval history: pt transferred out of ICU. BP stable. uo 1025 ml. serum cr trended up from 1.2 to 1.7 russell catheter removed this morning. has cough, trying to bring up phlegm. Currently on room air. 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 Objective - Vital Signs Vital signs: Vital Signs Temp Pulse Resp BP Pulse Ox 04/28/16 09:11 18 98 04/28/16 07:45 97.9 F 80 18 106/56 92 L 04/28/16 05:00 98.3 F 70 18 117/53 98 04/28/16 04:56 20 93 L 04/28/16 03:20 70 04/28/16 00:29 70 04/28/16 00:20 97.7 F 71 16 117/52 94 L 04/27/16 23:12 16 93 L 04/27/16 20:30 80 04/27/16 17:03 80 16 115/60 93 L 04/27/16 16:02 98.9 F 04/27/16 13:28 77 16 128/60 98 04/27/16 12:08 74 16 133/58 98 04/27/16 12:04 97.8 F Intake and Output 04/27/16 04/28/16 04/28/16 23:59 07:59 15:59 Intake Total 1100 / 1100 1000 / 1000 Output Total 360 / 360 625 / 625 200 / 200 Balance -360 / -360 475 / 475 800 / 800 Intake: IV Fluids 1000 / 1000 0.9 % Sodium Chloride 1, 1000 / 1000 000 ML @ 50 mls/hr IVC . Q20H [facility] Rx#:[id number] Oral 1100 / 1100 Output: Catheter 525 / 525 200 / 200 Chest Tube Drainage 360 / 360 100 / 100 Right Lateral Chest #2 210 / 210 50 / 50 Right Upper 150 / 150 50 / 50 Other: Weight 96.5 kg Blood Glucose* 100 80 Patient Weight 04/28/16 23:59 Weight 96.5 kg - General Appearance Exam: CVS; s1s2 present, regular, no murmurs RESP; decreased air entry on the rt, coarse rhonchi ABD; soft, NT, BS present, EXT; no edema, [employer]; alert oriented -3, CN grossly intact - Lab 04/28/16 04:50 04/28/16 04:50 Most recent lab results ABG pH 7.37 pH Units (7.32-7.45) 04/27/16 04:46 ABG pCO2 54 mmHg (35-45) H 04/27/16 04:46 ABG pO2 131 mmHg (85-104) H 04/27/16 04:46 ABG HCO3 31.2 mEQ/L (21-27) H 04/27/16 04:46 ABG O2 Saturation 99 % (95-98) H 04/27/16 04:46 Calcium 8.5 mg/dL (8.6-10.8) L 04/28/16 04:50 Phosphorus 4.1 mg/dL (2.3-4.7) 04/28/16 04:50 Magnesium 2.2 mg/dL (1.6-2.6) 04/25/16 03:50 - VTE Documentation of Mechanical Device: Intermittent pneumatic compression device Consult Discharge Plan - Plan Referrals: Amauri Lama MD [Partnered Physician] - 04/25/16 11:30 am
--- NOTE | 2016-04-28 12:44 | Internal Med Progress Note ---
Date of Encounter: 04/28/16 Time of Encounter: 12:42 - Assessment and plan (1) Hydropneumothorax Current Visit: Yes Status: Acute Assessment and plan: s/p Right posterior lateral thoracotomy with partial decortication and chemical pleurodesis-POD 2 Thoracic surgery consultation appreciated Pulmonary consultation appreciated continue post op care pain control patient received pre-op antibiotics (2) Gvalc-sc-ylpvejc kidney injury Current Visit: Yes Status: Acute Assessment and plan: Renal function worsened from previous day Will continue to hold KRISTIN/ARB, LAsix at this time Nephro eval appreciated Renal US: Unremarkable US of the kidneys however noted to have Postvoidal residual volume of 334cc with prostamegaly, likely outlet obstruction. Continue Flomax Urology eval noted, patient to follow up as outpatient continue to avoid nephrotoxic agents Allopurinol started by nephrology given uric acid level of 13.6 (3) CAD (coronary artery disease) Current Visit: Yes Status: Chronic Assessment and plan: Chronic, stable, no Chest pain Continue home meds Qualifiers: Coronary Disease-Associated Artery/Lesion type: [place] artery [place] vs. transplanted heart: [place] heart Associated angina: without angina Qualified Code(s): I25.10 - Atherosclerotic heart disease of [place] coronary artery without angina pectoris (4) COPD (chronic obstructive pulmonary disease) Current Visit: Yes Status: Chronic Assessment and plan: Chronic stable, no wheezing on exam Duonebs prn Levofloxacin O2 by [place] Qualifiers: COPD type: unspecified COPD Qualified Code(s): J44.9 - Chronic obstructive pulmonary disease, unspecified (5) Diastolic CHF Current Visit: Yes Status: Chronic Assessment and plan: Does not appear to be in clinical exacerbation Hold home dose of Lasix and Metolazone Monitor I/O's, obtain daily weights Qualifiers: Congestive heart failure chronicity: chronic Qualified Code(s): I50.32 - Chronic diastolic (congestive) heart failure (6) Hypertension Current Visit: Yes Status: Chronic Assessment and plan: BP within acceptable range Continue BB Qualifiers: Hypertension type: essential hypertension Qualified Code(s): I10 - Essential (primary) hypertension (7) Insulin dependent diabetes mellitus Current Visit: Yes Status: Chronic Assessment and plan: Continue SSI ACHS accuchecks Better control of blood glucose noted will continue Levemir to 35units qHS will continue to monitor fingerstick and blood glucose (8) Paroxysmal a-fib Current Visit: Yes Status: Chronic Assessment and plan: Not on anticoagulation due to GI bleed rate controlled with BB (9) S/P MVR (mitral valve replacement) Current Visit: Yes Status: Chronic (10) DVT prophylaxis Current Visit: Yes Status: Acute Assessment and plan: Heparin SQ - Subjective Interval history: Pt seen and examined. Patient s/p right posterior lateral thoracotomy with partial decortication and chemical pleurodesis-POD #2. Resting comfortably in bed and was transferred out of the ICU overnight. Denies any pain or sob at this time - Constitutional Vitals: Temp Pulse Resp BP Pulse Ox 97.9 F 80 18 106/56 98 04/28/16 07:45 04/28/16 07:45 04/28/16 09:11 04/28/16 07:45 04/28/16 09:11 General appearance: Present: cooperative, A&O X 3, pleasant, no acute distress, obese, answers questions appropriately - Head Head exam: Present: atraumatic, normocephalic - Eye Eye exam: Present: normal appearance, conjuntiva pink, sclera anicteric - Respiratory Respiratory exam: Present: CTAB (right chest tube in place). Absent: respiratory distress, wheezes - Cardiovascular Cardiovascular exam: Present: RRR, +S1, +S2. Absent: diastolic murmur, gallop, rubs, systolic murmur - GI/Abdominal GI/Abdominal exam: Present: normal bowel sounds, soft, no peritoneal signs. Absent: distended, tenderness - Extremities Exam Extremities exam: Present: warm, radial pulses palpable and symetrical. Absent : calf tenderness, cyanotic, pedal edema - Neurological Exam Neurological exam: Present: alert, oriented X3 - Psychiatric Psychiatric exam: Present: normal affect, normal mood Internal Medicine: Result - Labs CBC & Chem 7: 04/28/16 04:50 04/28/16 04:50 Labs: Short CBC 04/28/16 Range/Units 04:50 WBC 13.4 H (4.3-11.1) K/mcL Hgb 10.7 L D (12.9-16.9) g/dL Hct 32.8 L (37.5-50.1) % Plt Count 180 (140-400) K/mcL BMP 04/28/16 04/28/16 04:50 04:50 Sodium 136 136 Potassium 4.9 H 5.0 H Chloride 102 102 Carbon Dioxide 25 25 BUN 63 H D 64 H Creatinine 1.75 H 1.77 H Glucose 92 92 Calcium 8.5 L 8.5 L Liver Function 04/28/16 Range/Units 04:50 Albumin 2.5 L (3.5-5.0) g/dL - ABG Interpretation ABG results: ABG ABG pH 7.37 pH Units (7.32-7.45) 04/27/16 04:46 ABG pCO2 54 mmHg (35-45) H 04/27/16 04:46 ABG pO2 131 mmHg (85-104) H 04/27/16 04:46 ABG O2 Saturation 99 % (95-98) H 04/27/16 04:46 PT/INR, D-dimer PT 12.4 Seconds (9.4-12.1) H 04/18/16 15:50 - Impressions Impressions Chest X-Ray 04/26/16 10:30 IMPRESSION: Right thoracostomy tubes in place with a mild amount of subcutaneous emphysema. Right basilar pneumonia has improved with mild residual pneumothorax in the costophrenic angle. Persistent opacities in the right lung are otherwise unchanged. D/ / 04/26/2016 11:23:20 Faye Wagner MD / myles Interpreting Provider: Faye Wagner MD Chest X-Ray 04/27/16 06:00 IMPRESSION: 1. Stable position and appearance of two right-sided chest tubes, without radiographic evidence of a pneumothorax. 2. Stable right basilar airspace consolidation, most likely representing atelectasis. 3. Stable nodular opacity within the peripheral mid right lung. D/ / 04/27/2016 10:03:03 Pietro Smith MD / Sheela Miguel Interpreting Provider: Pietro Smith MD Chest X-Ray 04/28/16 06:00 IMPRESSION: 1. Two right-sided chest tubes in place, with interval decrease in size of a small residual pneumothorax within the right costophrenic angle. 2. No significant change in appearance of multifocal airspace opacity within the mid and lower right lung zones, representing either atelectasis, pneumonia, or pulmonary contusion. 3. Stable cardiomegaly. D/ / 04/28/2016 09:27:28 Pietro Smith MD / Sheela Miguel Interpreting Provider: Pietro Smith MD - VTE Documentation of Mechanical Device: Intermittent pneumatic compression device Consult Discharge Plan - Plan Referrals: Amauri Lama MD [Partnered Physician] - 04/25/16 11:30 am
[2016-04-28] MEDS: Insulin DETEMIR 100 UNIT/ML X5UNITS SQ SCH (20:15)
[2016-04-29] MEDS: Ipratropium/Albuterol Neb 3 ML IH SCH ×4 (03:48→22:45)
[2016-04-29 04:12] LABS: Basophils % 0.2 %; Eosinophils # 0.1 K/mcL (0.0-0.6); Eosinophils % 1.1 %; Hematocrit 30.8 % (37.5-50.1); Hemoglobin 9.8 g/dL (12.9-16.9); Immature Granulocytes % 0.6 % (0-4); Lymphocytes # 1.1 K/mcL (0.6-4.6); Lymphocytes % 10.1 %; Mean Corpuscular HGB Conc 31.8 g/dL (31.6-35.5); Mean Corpuscular Hemoglobin 30.3 pg (28.0-33.3); Mean Corpuscular Volume 95.4 fL (83.0-100.0); Mean Platelet Volume 10.7 fL (9.4-12.4); Monocytes # 0.7 K/mcL (0.0-1.3); Monocytes % 6.7 %; Neutrophils # 8.7 K/mcL (1.6-8.9); Platelet Count 172 K/mcL (140-400); Red Blood Count 3.23 M/mcL (4.19-5.50); Red Cell Distribution Width 15.2 % (11.5-14.5); Segmented Neutrophils % 81.3 %
[2016-04-29 04:28] LABS: Calcium 8.2 mg/dL (8.6-10.8); Potassium 4.8 mEq/L (3.5-4.5)
[2016-04-29 04:29] LABS: Albumin 2.3 g/dL (3.5-5.0); Calcium 8.1 mg/dL (8.6-10.8); Magnesium 2.4 mg/dL (1.6-2.6); Phosphorous 3.5 mg/dL (2.3-4.7)
[2016-04-29] MEDS: *HR* Heparin 5,000 UNIT/ML VIAL SQ SCH ×2 (04:30→17:44)
--- NOTE | 2016-04-29 07:02 | Cardiothoracic Progress Note ---
Date of Encounter: 04/29/16 Time of Encounter: 06:59 - Assessment and plan (1) Pleural effusion Current Visit: No Status: Acute The patient is recovering well from his right thoracotomy and decortication. He is breathing comfortably. The air leak is slowed; however, both chest tubes have intermittent/alternating leaks this morning. The chest x-ray shows a right basilar/lateral pneumothorax. Chest tubes will remain in place until the air leak stops. The patient will sit in a chair several times today and possibly begin ambulating later today. The assessment and plan as outlined above was discussed with the patient and/or family members who expressed understanding and agreement. All questions were answered. - Subjective Procedure(s) Performed: POD#3 S/P Right thoracotomy with decortication Interval history: The patient is resting comfortably in his hospital bed. He is breathing comfortably. He has no complaints. Vital Signs, Last 4 Hours Temp Pulse Resp BP Pulse Ox 04/29/16 04:25 73 04/29/16 04:22 98.0 F 79 16 117/56 96 04/29/16 03:48 16 96 Oxgyen Flow Rate Oxygen Flow Rate (LPM) 2 Clinical Data, last 8 Hours Output, Chest Tube Drainage 50 Amount [Right Lateral Chest #2 ] Output, Chest Tube Drainage 50 Amount [Right Lateral Chest #2 ] Output, Chest Tube Drainage 0 Amount [Right Upper] Output, Chest Tube Drainage 20 Amount [Right Upper] Output, Urine Amount 20 Weight 04/27/16 04/28/16 04/29/16 23:59 23:59 23:59 Weight 96.3 kg 96.5 kg 97 kg - Physical Examination General: Conversant, No Apparent Distress Neck: No JVD, Normal carotid pulses Cardiac: Reg Rate and Rhythm, Normal S1 and S2, No Murmur Incision: No signs of infection, Dry/intact dressing Chest tubes: Minimal drainage, Air leak (Intermittent in both chest tube #1 and chest tube #2.) Lungs: Normal Breath Sounds Neuro: Alert and responsive, No focal deficits noted Vascular: Normal capillary refill Extremities: No Clubbing, No Cyanosis, No Edema - Labs 04/29/16 03:55 04/29/16 03:55 Lab Results, Last 24 hours 04/29/16 04/29/16 04/29/16 03:55 03:55 03:55 WBC 10.7 Hgb 9.8 L Hct 30.8 L Plt Count 172 Sodium 134 L 133 L Potassium 4.8 H 5.0 H Chloride 104 103 Carbon Dioxide 22 21 BUN 71 H 71 H Creatinine 1.51 H 1.57 H Glucose 116 H 115 H Calcium 8.2 L 8.1 L Magnesium 2.4 - Imaging Chest Xray: image reviewed (No change in right basilar/lateral pneumothorax.) - VTE Documentation of Mechanical Device: Intermittent pneumatic compression device Consult Discharge Plan - Plan Referrals: Amauri Lama MD [Partnered Physician] - 04/25/16 11:30 am
[2016-04-29] MEDS: Insulin LISPRO 300 UNITS/3 ML VIAL SQ SCH ×4 (07:53→21:15)
[2016-04-29] MEDS: Multivit/Ca/Min/Fe/FA 1 TAB TABLET PO SCH (08:02)
[2016-04-29] MEDS: 0.9 % Sodium Chloride 1,000 ML IVC SCH ×2 (08:03→17:43)
[2016-04-29] MEDS: Aspirin Enteric Coated 81 MG Tablet PO SCH (08:03)
--- NOTE | 2016-04-29 08:36 | Nephrology Progress Note ---
Date of Encounter: 04/29/16 Time of Encounter: 08:35 - Assessment and Plan (1) SHELIA (acute kidney injury) Current Visit: Yes Status: Acute The patient has acute kidney injury superimposed on some mild chronic kidney disease. The main issue appears to be an enlarged prostate with bladder outlet obstruction. The patient fails to void within the next hour he is going to have to have the Cash catheter replaced. He has been started on Flomax. (2) Urinary hesitancy due to benign prostatic hyperplasia Current Visit: Yes Status: Acute Subjective Principal diagnosis: f/u of SHELIA Interval history: The patient's main issues that he continues to have difficulty voiding since the Cash catheter was removed. His serum creatinine is a bit better compared to yesterday but still above his usual baseline. Objective - Vital Signs Vital signs: Vital Signs Temp Pulse Resp BP Pulse Ox 04/29/16 07:06 97.9 F 71 14 112/51 94 L 04/29/16 04:25 73 04/29/16 04:22 98.0 F 79 16 117/56 96 04/29/16 03:48 16 96 04/29/16 00:15 78 04/29/16 00:06 98.0 F 80 15 119/65 96 04/28/16 22:39 18 94 L 04/28/16 20:20 82 04/28/16 18:49 97.9 F 95 18 112/63 94 L 04/28/16 15:50 98.0 F 90 16 108/49 92 L 04/28/16 11:45 98.0 F 80 16 109/48 92 L 04/28/16 09:11 18 98 Intake and Output 04/28/16 04/29/16 04/29/16 23:59 07:59 15:59 Intake Total 825 / 825 320 / 320 1000 / 1000 Output Total 430 / 430 140 / 140 Balance 395 / 395 180 / 180 1000 / 1000 Intake: IV Fluids 725 / 725 1000 / 1000 0.9 % Sodium Chloride 1, 725 / 725 1000 / 1000 000 ML @ 100 mls/hr IVC . Q10H [facility] Rx#:[id number] Oral 100 / 100 320 / 320 Output: Urine 0 / 0 20 / 20 Straight Cath 300 / 300 Chest Tube Drainage 130 / 130 120 / 120 Right Lateral Chest #2 100 / 100 100 / 100 Right Upper 30 / 30 20 / 20 Other: Meal Dinner Percent of Meal Consumed 0% Stool Size Small Stool Consistency formed Stool Color Brown Weight 97 kg Blood Glucose* 93 102 Patient Weight 04/29/16 23:59 Weight 97 kg - General Appearance Exam: Patient is alert and oriented. He is in no acute distress. Lung sounds. Heart regular rate and rhythm. Abdomen was benign. There is no peripheral edema. Chest tubes remain in place on the right side. - Lab 04/29/16 03:55 04/29/16 03:55 Most recent lab results ABG pH 7.37 pH Units (7.32-7.45) 04/27/16 04:46 ABG pCO2 54 mmHg (35-45) H 04/27/16 04:46 ABG pO2 131 mmHg (85-104) H 04/27/16 04:46 ABG HCO3 31.2 mEQ/L (21-27) H 04/27/16 04:46 ABG O2 Saturation 99 % (95-98) H 04/27/16 04:46 Calcium 8.2 mg/dL (8.6-10.8) L 04/29/16 03:55 Phosphorus 3.5 mg/dL (2.3-4.7) 04/29/16 03:55 Magnesium 2.4 mg/dL (1.6-2.6) 04/29/16 03:55 Urine Total Protein SEE NOTE mg/d (10-140) 04/25/16 11:35 - VTE Documentation of Mechanical Device: Intermittent pneumatic compression device Consult Discharge Plan - Plan Referrals: Amauri Lama MD [Partnered Physician] - 04/25/16 11:30 am
--- NOTE | 2016-04-29 09:16 | Internal Med Progress Note ---
Date of Encounter: 04/29/16 Time of Encounter: 09:14 - Assessment and plan (1) Hydropneumothorax Current Visit: Yes Status: Acute Assessment and plan: s/p Right posterior lateral thoracotomy with partial decortication and chemical pleurodesis-POD 4 Thoracic surgery consultation appreciated Noted to have chest tube air leaks CXR shows right basilar/lateral pneumothorax, chest tubes to remain in place until the air leak stops Pain control as per surgery(patient on a PCI pump) Patient encouraged to get out of bed to chair and ambulate as tolerated PT eval requested (2) Fkasz-nm-lscmbji kidney injury Current Visit: Yes Status: Acute Assessment and plan: Likely secondary to underlying CKD worsened with enlarged prostate causing outlet obstruction Renal function improved from previous day Will continue to hold KRISTIN/ARB, LAsix at this time Nephro eval appreciated Continue Flomax continue to avoid nephrotoxic agents Allopurinol started by nephrology given uric acid level of 13.6 Will need russell placement if unable to void, patient agrees with plan (3) CAD (coronary artery disease) Current Visit: Yes Status: Chronic Assessment and plan: Chronic, stable, no Chest pain Continue home meds Qualifiers: Coronary Disease-Associated Artery/Lesion type: [place] artery [place] vs. transplanted heart: [place] heart Associated angina: without angina Qualified Code(s): I25.10 - Atherosclerotic heart disease of [place] coronary artery without angina pectoris (4) COPD (chronic obstructive pulmonary disease) Current Visit: Yes Status: Chronic Assessment and plan: Chronic stable, no wheezing on exam Duonebs prn Levofloxacin O2 by [place] Qualifiers: COPD type: unspecified COPD Qualified Code(s): J44.9 - Chronic obstructive pulmonary disease, unspecified (5) Diastolic CHF Current Visit: Yes Status: Chronic Assessment and plan: Does not appear to be in clinical exacerbation Hold home dose of Lasix and Metolazone Monitor I/O's, obtain daily weights Qualifiers: Congestive heart failure chronicity: chronic Qualified Code(s): I50.32 - Chronic diastolic (congestive) heart failure (6) Hypertension Current Visit: Yes Status: Chronic Assessment and plan: BP within acceptable range Continue BB Qualifiers: Hypertension type: essential hypertension Qualified Code(s): I10 - Essential (primary) hypertension (7) Insulin dependent diabetes mellitus Current Visit: Yes Status: Chronic Assessment and plan: Continue SSI ACHS accuchecks Better control of blood glucose noted will continue Levemir to 35units qHS will continue to monitor fingerstick and blood glucose (8) Paroxysmal a-fib Current Visit: Yes Status: Chronic Assessment and plan: Not on anticoagulation due to GI bleed rate controlled with BB (9) S/P MVR (mitral valve replacement) Current Visit: Yes Status: Chronic (10) DVT prophylaxis Current Visit: Yes Status: Acute Assessment and plan: Heparin SQ - Subjective Interval history: Pt seen and examined. Patient s/p right posterior lateral thoracotomy with partial decortication and chemical pleurodesis-POD #4. Patient reports of having difficulty urinating and required straight cath overnight. He states he would like to avoid the russell cath placement but if he is not able to urinate then he is willing to get the russell cath placed. Also noted to have air leak in the right chest tube, cardiothoracic surgery on board. Currently saturating well on room air and denies any sob or chest pain. - Constitutional Vitals: Temp Pulse Resp BP Pulse Ox 97.9 F 70 14 112/51 94 L 04/29/16 07:06 04/29/16 07:50 04/29/16 07:06 04/29/16 07:06 04/29/16 07:06 General appearance: Present: cooperative, A&O X 3, pleasant, no acute distress, obese, answers questions appropriately - Head Head exam: Present: atraumatic, normocephalic - Eye Eye exam: Present: conjuntiva pink, sclera anicteric - Respiratory Respiratory exam: Absent: respiratory distress, wheezes Additional comments: right chest tube in place - Cardiovascular Cardiovascular exam: Present: RRR, +S1, +S2 - GI/Abdominal GI/Abdominal exam: Present: normal bowel sounds, soft. Absent: distended, tenderness - Extremities Exam Extremities exam: Present: warm, radial pulses palpable and symetrical. Absent : calf tenderness, pedal edema - Neurological Exam Neurological exam: Present: alert, oriented X3, no focal deficits - Psychiatric Psychiatric exam: Present: normal affect, normal mood Internal Medicine: Result - Labs CBC & Chem 7: 04/29/16 03:55 04/29/16 03:55 Labs: Short CBC 04/29/16 Range/Units 03:55 WBC 10.7 (4.3-11.1) K/mcL Hgb 9.8 L (12.9-16.9) g/dL Hct 30.8 L (37.5-50.1) % Plt Count 172 (140-400) K/mcL Neutrophils # 8.7 (1.6-8.9) K/mcL BMP 04/29/16 04/29/16 03:55 03:55 Sodium 134 L 133 L Potassium 4.8 H 5.0 H Chloride 104 103 Carbon Dioxide 22 21 BUN 71 H 71 H Creatinine 1.51 H 1.57 H Glucose 116 H 115 H Calcium 8.2 L 8.1 L Liver Function 04/29/16 Range/Units 03:55 Albumin 2.3 L (3.5-5.0) g/dL - ABG Interpretation ABG results: ABG ABG pH 7.37 pH Units (7.32-7.45) 04/27/16 04:46 ABG pCO2 54 mmHg (35-45) H 04/27/16 04:46 ABG pO2 131 mmHg (85-104) H 04/27/16 04:46 ABG O2 Saturation 99 % (95-98) H 04/27/16 04:46 PT/INR, D-dimer PT 12.4 Seconds (9.4-12.1) H 04/18/16 15:50 - Impressions Impressions Chest X-Ray 04/28/16 06:00 IMPRESSION: 1. Two right-sided chest tubes in place, with interval decrease in size of a small residual pneumothorax within the right costophrenic angle. 2. No significant change in appearance of multifocal airspace opacity within the mid and lower right lung zones, representing either atelectasis, pneumonia, or pulmonary contusion. 3. Stable cardiomegaly. D/ / 04/28/2016 09:27:28 Pietro Smith MD / Sheela Miguel Interpreting Provider: Pietro Smith MD Chest X-Ray 04/29/16 06:00 IMPRESSION: 1. Support lines are stable, including two right chest tubes are unchanged. No significant right pneumothorax is seen on this limited view. 2. No significant interval change in the appearance of the lungs. D/ / 04/29/2016 07:56:23 Conchis Andres MD / [email or web address] Interpreting Provider: Conchis Andres MD - VTE Documentation of Mechanical Device: Intermittent pneumatic compression device Consult Discharge Plan - Plan Referrals: Amauri Lama MD [Partnered Physician] - 04/25/16 11:30 am
[2016-04-29] MEDS: Budesonide/Formoterol 160/4.5 MDI IH SCH ×2 (10:40→22:45)
[2016-04-29] MEDS: levoFLOXacin 750 MG TABLET PO SCH (15:44)
[2016-04-29] MEDS: Insulin DETEMIR 100 UNIT/ML X5UNITS SQ SCH (21:15)
[2016-04-30] MEDS: Ipratropium/Albuterol Neb 3 ML IH SCH ×4 (03:35→21:18)
[2016-04-30] MEDS: 0.9 % Sodium Chloride 1,000 ML IVC SCH ×2 (04:44→17:10)
[2016-04-30] MEDS: *HR* Heparin 5,000 UNIT/ML VIAL SQ SCH ×2 (04:44→17:10)
[2016-04-30 05:57] LABS: Hematocrit 29.8 % (37.5-50.1); Hemoglobin 9.4 g/dL (12.9-16.9); Mean Corpuscular HGB Conc 31.5 g/dL (31.6-35.5); Mean Corpuscular Hemoglobin 29.9 pg (28.0-33.3); Mean Corpuscular Volume 94.9 fL (83.0-100.0); Mean Platelet Volume 10.9 fL (9.4-12.4); Platelet Count 167 K/mcL (140-400); Red Blood Count 3.14 M/mcL (4.19-5.50); Red Cell Distribution Width 15.3 % (11.5-14.5)
[2016-04-30 06:13] LABS: Alanine Aminotransferase 9 Units/L (0-55); Albumin 2.1 g/dL (3.5-5.0); Albumin/Globulin Ratio 0.6 (1.1-2.2); Alkaline Phosphatase 82 Units/L (38-126); Aspartate Amino Transferase 34 Units/L (5-34); BUN/Creatinine Ratio 50 (6-26); Bilirubin,Total 0.8 mg/dL (0.2-1.2); Blood Urea Nitrogen 59 mg/dL (8-26); Calcium 8.1 mg/dL (8.6-10.8); Carbon Dioxide 23 mEq/L (19-29); Chloride 107 mEq/L (98-109); Globulin 3.8 g/dL (2.4-3.5); Glucose 69 mg/dL (70-99); Osmolality,Calculated 299 (280-300); Potassium 4.7 mEq/L (3.5-4.5); Sodium 137 mEq/L (136-145); Total Protein 5.9 g/dL (6.0-8.3); eGFR For African Americans > 60 (> 60); eGFR For Non-African Americans > 60 (> 60)
[2016-04-30] MEDS: Multivit/Ca/Min/Fe/FA 1 TAB TABLET PO SCH (07:47)
[2016-04-30] MEDS: Aspirin Enteric Coated 81 MG Tablet PO SCH (07:48)
[2016-04-30] MEDS: Insulin LISPRO 300 UNITS/3 ML VIAL SQ SCH ×4 (08:09→20:17)
--- NOTE | 2016-04-30 09:32 | Cardiothoracic Progress Note ---
Date of Encounter: 04/30/16 Time of Encounter: 09:31 - Assessment and plan (1) Pleural effusion Current Visit: No Status: Acute The patient is recovering well from his right thoracotomy and decortication. He is breathing comfortably. The air leak has stopped. Chest tubes will remain in place until the air leak stops. The patient will sit in a chair several times today and possibly begin ambulating later today. The assessment and plan as outlined above was discussed with the patient and/or family members who expressed understanding and agreement. All questions were answered. - Subjective Procedure(s) Performed: POD#4 S/P Right thoracotomy with decortication Interval history: The patient is resting comfortably in his hospital bed. He is breathing comfortably. He has no complaints. Vital Signs, Last 4 Hours Temp Pulse Resp BP Pulse Ox 04/30/16 07:58 98.2 F 71 17 113/63 94 L 04/30/16 07:53 71 Oxgyen Flow Rate Oxygen Flow Rate (LPM) 2 Clinical Data, last 8 Hours Output, Chest Tube Drainage 0 Amount [Right Lateral Chest #2 ] Output, Chest Tube Drainage 40 Amount [Right Lateral Chest #2 ] Output, Chest Tube Drainage 0 Amount [Right Upper] Output, Chest Tube Drainage 10 Amount [Right Upper] Weight 04/28/16 04/29/16 04/30/16 23:59 23:59 23:59 Weight 96.5 kg 97 kg 99.5 kg - Physical Examination General: Conversant, No Apparent Distress Neck: No JVD, Normal carotid pulses Cardiac: Reg Rate and Rhythm, Normal S1 and S2, No Murmur Incision: No signs of infection, Dry/intact dressing Chest tubes: Minimal drainage, Other (No air leak.) Lungs: Normal Breath Sounds, No Wheeze, Rales, Rhonchi Neuro: Alert and responsive, No focal deficits noted Vascular: Normal capillary refill Extremities: No Clubbing, No Cyanosis, No Edema - Labs 04/30/16 04:51 04/30/16 04:51 Lab Results, Last 24 hours 04/30/16 04/30/16 04:51 04:51 WBC 8.0 Hgb 9.4 L Hct 29.8 L Plt Count 167 Sodium 137 Potassium 4.7 H Chloride 107 Carbon Dioxide 23 BUN 59 H Creatinine 1.17 Glucose 69 L Calcium 8.1 L Total Bilirubin 0.8 AST 34 ALT 9 Alkaline Phosphatase 82 - Imaging Chest Xray: image reviewed (No pneumothorax. Minimal atelectasis/infiltrate. Small right pleural effusion.) - VTE Documentation of Mechanical Device: Intermittent pneumatic compression device Consult Discharge Plan - Plan Referrals: eGla Nazario MD [Partnered Physician] - 05/16/16 1:40 pm Amauri Lama MD [Partnered Physician] - 05/07/16 11:30 am ()
[2016-04-30] MEDS: Budesonide/Formoterol 160/4.5 MDI IH SCH ×2 (10:24→21:18)
--- NOTE | 2016-04-30 11:07 | Internal Med Progress Note ---
Date of Encounter: 04/30/16 Time of Encounter: 11:05 - Assessment and plan (1) Hydropneumothorax Current Visit: Yes Status: Acute Assessment and plan: s/p Right posterior lateral thoracotomy with partial decortication and chemical pleurodesis-POD 5 Cardiothoracic surgery consultation appreciated CXR shows resolution of the pneumothorax Pain control as per surgery(patient on a PCI pump) Patient encouraged to get out of bed to chair and ambulate as tolerated PT eval requested (2) Npaja-zi-ydziliw kidney injury Current Visit: Yes Status: Acute Assessment and plan: Likely secondary to underlying CKD worsened with enlarged prostate causing outlet obstruction Renal function improved from previous day Will continue to hold KRISTIN/ARB, LAsix at this time Nephro eval appreciated Continue Flomax continue to avoid nephrotoxic agents Allopurinol started by nephrology given uric acid level of 13.[address] with good urine output (3) CAD (coronary artery disease) Current Visit: Yes Status: Chronic Assessment and plan: Chronic, stable, no Chest pain Continue home meds Qualifiers: Coronary Disease-Associated Artery/Lesion type: [place] artery [place] vs. transplanted heart: [place] heart Associated angina: without angina Qualified Code(s): I25.10 - Atherosclerotic heart disease of [place] coronary artery without angina pectoris (4) COPD (chronic obstructive pulmonary disease) Current Visit: Yes Status: Chronic Assessment and plan: Chronic stable, no wheezing on exam Duonebs prn Levofloxacin O2 by [place] Qualifiers: COPD type: unspecified COPD Qualified Code(s): J44.9 - Chronic obstructive pulmonary disease, unspecified (5) Diastolic CHF Current Visit: Yes Status: Chronic Assessment and plan: Does not appear to be in clinical exacerbation Hold home dose of Lasix and Metolazone Monitor I/O's, obtain daily weights Qualifiers: Congestive heart failure chronicity: chronic Qualified Code(s): I50.32 - Chronic diastolic (congestive) heart failure (6) Hypertension Current Visit: Yes Status: Chronic Assessment and plan: BP within acceptable range Continue BB Qualifiers: Hypertension type: essential hypertension Qualified Code(s): I10 - Essential (primary) hypertension (7) Insulin dependent diabetes mellitus Current Visit: Yes Status: Chronic Assessment and plan: Continue SSI ACHS accuchecks Better control of blood glucose noted will continue Levemir to 35units qHS will continue to monitor fingerstick and blood glucose (8) Paroxysmal a-fib Current Visit: Yes Status: Chronic Assessment and plan: Not on anticoagulation due to GI bleed rate controlled with BB (9) S/P MVR (mitral valve replacement) Current Visit: Yes Status: Chronic (10) DVT prophylaxis Current Visit: Yes Status: Acute Assessment and plan: Heparin SQ - Subjective Interval history: Pt seen and examined. Patient s/p right posterior lateral thoracotomy with partial decortication and chemical pleurodesis-POD #5. Patient seen and examined at bedside. Resting comfortably in bed, and states he feels better compared to the previous day. Saturating well on room air. Cash catheter was placed yesterday, with good urine output. - Constitutional Vitals: Temp Pulse Resp BP Pulse Ox 98.2 F 71 16 113/63 97 04/30/16 07:58 04/30/16 07:58 04/30/16 10:26 04/30/16 07:58 04/30/16 10:26 General appearance: Present: cooperative, A&O X 3, pleasant, no acute distress, obese, answers questions appropriately - Head Head exam: Present: atraumatic, normocephalic - Eye Eye exam: Present: PERRL, conjuntiva pink, sclera anicteric - Respiratory Respiratory exam: Present: CTAB. Absent: accessory muscle use (chest tubes in place), rales, rhonchi, wheezes - Cardiovascular Cardiovascular exam: Present: RRR, +S1, +S2. Absent: diastolic murmur, gallop, rubs, systolic murmur - GI/Abdominal GI/Abdominal exam: Present: normal bowel sounds, soft, no peritoneal signs. Absent: distended, tenderness - Extremities Exam Extremities exam: Present: warm, radial pulses palpable and symetrical. Absent : calf tenderness, cyanotic, pedal edema - Neurological Exam Neurological exam: Present: alert, oriented X3 - Psychiatric Psychiatric exam: Present: normal affect, normal mood Internal Medicine: Result - Labs CBC & Chem 7: 04/30/16 04:51 04/30/16 04:51 Labs: Short CBC 04/30/16 Range/Units 04:51 WBC 8.0 (4.3-11.1) K/mcL Hgb 9.4 L (12.9-16.9) g/dL Hct 29.8 L (37.5-50.1) % Plt Count 167 (140-400) K/mcL BMP 04/30/16 04:51 Sodium 137 Potassium 4.7 H Chloride 107 Carbon Dioxide 23 BUN 59 H Creatinine 1.17 Glucose 69 L Calcium 8.1 L Liver Function 04/30/16 Range/Units 04:51 Total Bilirubin 0.8 (0.2-1.2) mg/dL AST 34 (5-34) Units/L ALT 9 (0-55) Units/L Alkaline Phosphatase 82 (38-126) Units/L Albumin 2.1 L (3.5-5.0) g/dL - ABG Interpretation ABG results: ABG ABG pH 7.37 pH Units (7.32-7.45) 04/27/16 04:46 ABG pCO2 54 mmHg (35-45) H 04/27/16 04:46 ABG pO2 131 mmHg (85-104) H 04/27/16 04:46 ABG O2 Saturation 99 % (95-98) H 04/27/16 04:46 PT/INR, D-dimer PT 12.4 Seconds (9.4-12.1) H 04/18/16 15:50 - Impressions Impressions Chest X-Ray 04/29/16 06:00 IMPRESSION: 1. Support lines are stable, including two right chest tubes are unchanged. No significant right pneumothorax is seen on this limited view. 2. No significant interval change in the appearance of the lungs. D/ / 04/29/2016 07:56:23 Conchis Andres MD / [facility] Interpreting Provider: Conchis Andres MD Chest X-Ray 04/30/16 06:00 IMPRESSION: Stable chest with right-sided chest tube and no evidence of pneumothorax. D/ / Clem Plata MD / Clem Plata MD Interpreting Provider: Clem Plata MD - VTE Documentation of Mechanical Device: Intermittent pneumatic compression device Consult Discharge Plan - Plan Referrals: Gela Nazario MD [Partnered Physician] - 05/16/16 1:40 pm Amauri Lama MD [Partnered Physician] - 05/07/16 11:30 am ()
[2016-04-30] MEDS: levoFLOXacin 500 MG TABLET PO SCH (17:10)
[2016-04-30] MEDS: Insulin DETEMIR 100 UNIT/ML X5UNITS SQ SCH (20:14)
[2016-05-01] MEDS: 0.9 % Sodium Chloride 1,000 ML IVC SCH ×2 (02:19→16:12)
[2016-05-01] MEDS: *HR* HYDROcodone/Acet 5/325 mg TABLET PO PRN ×3 (02:22→19:41)
[2016-05-01] MEDS: Ipratropium/Albuterol Neb 3 ML IH SCH ×4 (03:30→22:23)
[2016-05-01] MEDS: *HR* Heparin 5,000 UNIT/ML VIAL SQ SCH ×2 (04:07→17:54)
[2016-05-01 05:29] LABS: Basophils % 0.2 %; Eosinophils # 0.2 K/mcL (0.0-0.6); Hematocrit 31.4 % (37.5-50.1); Immature Granulocytes % 0.7 % (0-4); Lymphocytes # 0.8 K/mcL (0.6-4.6); Lymphocytes % 9.5 %; Mean Corpuscular HGB Conc 31.8 g/dL (31.6-35.5); Mean Corpuscular Hemoglobin 30.1 pg (28.0-33.3); Mean Corpuscular Volume 94.6 fL (83.0-100.0); Mean Platelet Volume 10.9 fL (9.4-12.4); Monocytes # 0.6 K/mcL (0.0-1.3); Monocytes % 7.2 %; Neutrophils # 6.6 K/mcL (1.6-8.9); Platelet Count 205 K/mcL (140-400); Red Blood Count 3.32 M/mcL (4.19-5.50); Red Cell Distribution Width 15.4 % (11.5-14.5); Segmented Neutrophils % 80.4 %
[2016-05-01 05:39] LABS: BUN/Creatinine Ratio 52 (6-26); Calcium 8.2 mg/dL (8.6-10.8); Carbon Dioxide 21 mEq/L (19-29); Chloride 108 mEq/L (98-109); Glucose 105 mg/dL (70-99); Magnesium 2.4 mg/dL (1.6-2.6); Osmolality,Calculated 298 (280-300); Phosphorous 2.6 mg/dL (2.3-4.7); Potassium 4.6 mEq/L (3.5-4.5); Sodium 138 mEq/L (136-145); eGFR For African Americans > 60 (> 60); eGFR For Non-African Americans > 60 (> 60)
[2016-05-01 05:42] LABS: Blood Urea Nitrogen 46 mg/dL (8-26)
[2016-05-01] MEDS: *HR* HYDROmorphone 20 MG/20 ML PCA IVC PRN (06:52)
--- NOTE | 2016-05-01 07:19 | Cardiothoracic Progress Note ---
Date of Encounter: 05/01/16 Time of Encounter: 07:16 - Assessment and plan (1) Pleural effusion Current Visit: No Status: Acute The patient is recovering well from his right thoracotomy and decortication. He is breathing comfortably. The air leak remains stopped. Chest tubes will remain and suction until the drainage stops. The patient will sit in a chair several times today and possibly begin ambulating later today. The assessment and plan as outlined above was discussed with the patient and/or family members who expressed understanding and agreement. All questions were answered. - Subjective Procedure(s) Performed: POD#5 S/P Right thoracotomy with decortication Interval history: The patient is resting comfortably in his hospital bed. He is breathing comfortably. He has no complaints. Vital Signs, Last 4 Hours Temp Pulse Resp BP Pulse Ox 05/01/16 04:11 86 05/01/16 04:04 98.2 F 90 14 150/73 95 Oxgyen Flow Rate Oxygen Flow Rate (LPM) 0 Clinical Data, last 8 Hours Output, Chest Tube Drainage 0 Amount [Right Lateral Chest #2 ] Output, Chest Tube Drainage 0 Amount [Right Lateral Chest #2 ] Output, Chest Tube Drainage 20 Amount [Right Upper] Output, Chest Tube Drainage 30 Amount [Right Upper] Weight 04/29/16 04/30/16 05/01/16 23:59 23:59 23:59 Weight 97 kg 99.5 kg 102.2 kg - Physical Examination General: Conversant, No Apparent Distress Neck: No JVD, Normal carotid pulses Cardiac: Reg Rate and Rhythm, Normal S1 and S2, No Murmur Incision: No signs of infection, Dry/intact dressing Chest tubes: Minimal drainage, Other (No air leak.) Lungs: Normal Breath Sounds, No Wheeze, Rales, Rhonchi Neuro: Alert and responsive, No focal deficits noted Musculoskeletal: No Chest Wall Tenderness Extremities: No Clubbing, No Cyanosis, No Edema, Normal Pulses - Labs 05/01/16 03:43 05/01/16 03:43 Lab Results, Last 24 hours 05/01/16 05/01/16 03:43 03:43 WBC 8.2 Hgb 10.0 L Hct 31.4 L Plt Count 205 Sodium 138 Potassium 4.6 H Chloride 108 Carbon Dioxide 21 BUN 46 H D Creatinine 0.89 Glucose 105 H Calcium 8.2 L Magnesium 2.4 - Imaging Chest Xray: image reviewed (No pneumothorax. Possible right basilar pleural effusion.) - VTE Documentation of Mechanical Device: Intermittent pneumatic compression device Consult Discharge Plan - Plan Referrals: Gela Nazario MD [Partnered Physician] - 05/16/16 1:40 pm Amauri Lama MD [Partnered Physician] - 05/07/16 11:30 am ()
[2016-05-01] MEDS: Multivit/Ca/Min/Fe/FA 1 TAB TABLET PO SCH (08:15)
[2016-05-01] MEDS: Insulin LISPRO 300 UNITS/3 ML VIAL SQ SCH ×4 (08:16→21:02)
[2016-05-01] MEDS: Aspirin Enteric Coated 81 MG Tablet PO SCH (08:16)
--- NOTE | 2016-05-01 08:23 | Event Note ---
Date of Encounter: 05/01/16 Time of Encounter: 08:23 The patient's renal function has normalized. He will likely need to continue to have the Cash catheter in place until he has follow-up with urology. Nephrology will sign off. Please call again if needed.
--- NOTE | 2016-05-01 10:19 | Internal Med Progress Note ---
Date of Encounter: 05/01/16 Time of Encounter: 10:15 - Assessment and plan (1) Hydropneumothorax Current Visit: Yes Status: Acute Assessment and plan: s/p Right posterior lateral thoracotomy with partial decortication and chemical pleurodesis-POD 6 Cardiothoracic surgery consultation appreciated CXR shows resolution of the pneumothorax Pain control as per surgery(patient on a PCI pump) Patient encouraged to get out of bed to chair and ambulate as tolerated PT eval requested (2) Tryzl-yh-wnkufji kidney injury Current Visit: Yes Status: Acute Assessment and plan: Likely secondary to underlying CKD worsened with enlarged prostate causing outlet obstruction SHELIA resolved Will continue to hold KRISTIN/ARB, LAsix at this time given BP within acceptable range despite holding these medications Likely to be discharged with russell cath Nephro eval appreciated Continue Flomax continue to avoid nephrotoxic agents (3) CAD (coronary artery disease) Current Visit: Yes Status: Chronic Assessment and plan: Chronic, stable, no Chest pain Continue home meds Qualifiers: Coronary Disease-Associated Artery/Lesion type: [place] artery [place] vs. transplanted heart: [place] heart Associated angina: without angina Qualified Code(s): I25.10 - Atherosclerotic heart disease of [place] coronary artery without angina pectoris (4) COPD (chronic obstructive pulmonary disease) Current Visit: Yes Status: Chronic Assessment and plan: Chronic stable, no wheezing on exam Duonebs prn Levofloxacin for total of 7 days (Day 4/7) O2 by [place] Qualifiers: COPD type: unspecified COPD Qualified Code(s): J44.9 - Chronic obstructive pulmonary disease, unspecified (5) Diastolic CHF Current Visit: Yes Status: Chronic Assessment and plan: Does not appear to be in clinical exacerbation Hold home dose of Lasix and Metolazone Monitor I/O's, obtain daily weights Qualifiers: Congestive heart failure chronicity: chronic Qualified Code(s): I50.32 - Chronic diastolic (congestive) heart failure (6) Hypertension Current Visit: Yes Status: Chronic Assessment and plan: BP within acceptable range Continue BB Qualifiers: Hypertension type: essential hypertension Qualified Code(s): I10 - Essential (primary) hypertension (7) Insulin dependent diabetes mellitus Current Visit: Yes Status: Chronic Assessment and plan: Continue SSI ACHS accuchecks Better control of blood glucose noted will continue Levemir to 35units qHS will continue to monitor fingerstick and blood glucose (8) Paroxysmal a-fib Current Visit: Yes Status: Chronic Assessment and plan: Not on anticoagulation due to GI bleed rate controlled with BB (9) S/P MVR (mitral valve replacement) Current Visit: Yes Status: Chronic (10) DVT prophylaxis Current Visit: Yes Status: Acute Assessment and plan: Heparin SQ - Subjective Interval history: Pt seen and examined. Patient s/p right posterior lateral thoracotomy with partial decortication and chemical pleurodesis-POD #6. Patient seen and examined at bedside. Resting in chair, saturating well on room air. Pain controlled with the current medication regimen. - Constitutional Vitals: Temp Pulse Resp BP Pulse Ox 98.2 F 72 16 130/64 93 L 05/01/16 07:33 05/01/16 08:30 05/01/16 09:54 05/01/16 07:33 05/01/16 07:33 General appearance: Present: cooperative, A&O X 3, pleasant, no acute distress, obese, answers questions appropriately - Head Head exam: Present: atraumatic, normocephalic - Eye Eye exam: Present: normal appearance, conjuntiva pink, sclera anicteric - Respiratory Respiratory exam: Present: CTAB. Absent: respiratory distress, wheezes (right chest tubes in place) - Cardiovascular Cardiovascular exam: Present: RRR, +S1, +S2 - GI/Abdominal GI/Abdominal exam: Present: normal bowel sounds, soft. Absent: distended, tenderness - Extremities Exam Extremities exam: Present: warm, radial pulses palpable and symetrical. Absent : pedal edema - Neurological Exam Neurological exam: Present: alert, oriented X3 - Psychiatric Psychiatric exam: Present: normal affect, normal mood Internal Medicine: Result - Labs CBC & Chem 7: 05/01/16 03:43 05/01/16 03:43 Labs: Short CBC 05/01/16 Range/Units 03:43 WBC 8.2 (4.3-11.1) K/mcL Hgb 10.0 L (12.9-16.9) g/dL Hct 31.4 L (37.5-50.1) % Plt Count 205 (140-400) K/mcL Neutrophils # 6.6 (1.6-8.9) K/mcL BMP 05/01/16 03:43 Sodium 138 Potassium 4.6 H Chloride 108 Carbon Dioxide 21 BUN 46 H D Creatinine 0.89 Glucose 105 H Calcium 8.2 L - ABG Interpretation ABG results: ABG ABG pH 7.37 pH Units (7.32-7.45) 04/27/16 04:46 ABG pCO2 54 mmHg (35-45) H 04/27/16 04:46 ABG pO2 131 mmHg (85-104) H 04/27/16 04:46 ABG O2 Saturation 99 % (95-98) H 04/27/16 04:46 PT/INR, D-dimer PT 12.4 Seconds (9.4-12.1) H 04/18/16 15:50 - Impressions Impressions Chest X-Ray 05/01/16 06:00 IMPRESSION: Stable chest. No significant pneumothorax. D/ / Jesse Jackson MD / Jesse Jackson MD Interpreting Provider: Jesse Jackson MD - VTE Documentation of Mechanical Device: Intermittent pneumatic compression device Consult Discharge Plan - Plan Referrals: Gela Nazario MD [Partnered Physician] - 05/16/16 1:40 pm Amauri Lama MD [Partnered Physician] - 05/07/16 11:30 am ()
[2016-05-01] MEDS: Budesonide/Formoterol 160/4.5 MDI IH SCH ×3 (10:54→22:40)
[2016-05-01] MEDS: levoFLOXacin 500 MG TABLET PO SCH (16:13)
[2016-05-01] MEDS: Insulin DETEMIR 100 UNIT/ML X5UNITS SQ SCH (20:58)
[2016-05-02] MEDS: 0.9 % Sodium Chloride 1,000 ML IVC SCH ×4 (00:01→22:02)
[2016-05-02] MEDS: Ipratropium/Albuterol Neb 3 ML IH SCH ×4 (03:32→22:46)
[2016-05-02 05:38] LABS: Basophils % 0.4 %; Eosinophils # 0.2 K/mcL (0.0-0.6); Eosinophils % 2.7 %; Hematocrit 29.6 % (37.5-50.1); Hemoglobin 9.5 g/dL (12.9-16.9); Immature Granulocytes % 0.9 % (0-4); Lymphocytes # 1.1 K/mcL (0.6-4.6); Lymphocytes % 13.9 %; Mean Corpuscular HGB Conc 32.1 g/dL (31.6-35.5); Mean Corpuscular Hemoglobin 30.4 pg (28.0-33.3); Mean Corpuscular Volume 94.6 fL (83.0-100.0); Mean Platelet Volume 9.8 fL (9.4-12.4); Monocytes # 0.6 K/mcL (0.0-1.3); Monocytes % 7.2 %; Neutrophils # 5.9 K/mcL (1.6-8.9); Platelet Count 186 K/mcL (140-400); Red Blood Count 3.13 M/mcL (4.19-5.50); Red Cell Distribution Width 15.7 % (11.5-14.5); Segmented Neutrophils % 74.9 %
[2016-05-02 06:00] LABS: BUN/Creatinine Ratio 49 (6-26); Blood Urea Nitrogen 40 mg/dL (8-26); Carbon Dioxide 20 mEq/L (19-29); Chloride 111 mEq/L (98-109); Glucose 74 mg/dL (70-99); Magnesium 2.1 mg/dL (1.6-2.6); Osmolality,Calculated 294 (280-300); Phosphorous 2.8 mg/dL (2.3-4.7); Potassium 4.3 mEq/L (3.5-4.5); Sodium 138 mEq/L (136-145); eGFR For African Americans > 60 (> 60); eGFR For Non-African Americans > 60 (> 60)
[2016-05-02] MEDS: *HR* Heparin 5,000 UNIT/ML VIAL SQ SCH ×2 (06:08→17:09)
[2016-05-02] MEDS: Multivit/Ca/Min/Fe/FA 1 TAB TABLET PO SCH (08:52)
[2016-05-02] MEDS: Aspirin Enteric Coated 81 MG Tablet PO SCH (08:53)
[2016-05-02] MEDS: Insulin LISPRO 300 UNITS/3 ML VIAL SQ SCH ×4 (08:54→21:00)
--- NOTE | 2016-05-02 10:24 | Internal Med Progress Note ---
Date of Encounter: 05/02/16 Time of Encounter: 10:21 - Assessment and plan (1) Hydropneumothorax Current Visit: Yes Status: Acute Assessment and plan: s/p Right posterior lateral thoracotomy with partial decortication and chemical pleurodesis-POD 7 Cardiothoracic surgery consultation appreciated CXR shows resolution of the pneumothorax Pain control as per surgery(patient on a PCI pump) Patient encouraged to get out of bed to chair and ambulate as tolerated PT eval recommends inpatient rehab/swing bed will continue PT while in house Chest tubes continue to drain serous sanguinous fluid, chest tubes to be removed once chest tubes stop draining. (2) Cfirp-ss-maoqvfm kidney injury Current Visit: Yes Status: Acute Assessment and plan: Likely secondary to underlying CKD worsened with enlarged prostate causing outlet obstruction SHELIA resolved Will continue to hold KRISTIN/ARB, LAsix at this time given BP within acceptable range despite holding these medications Likely to be discharged with russell cath Nephro eval appreciated Continue Flomax continue to avoid nephrotoxic agents (3) CAD (coronary artery disease) Current Visit: Yes Status: Chronic Assessment and plan: Chronic, stable, no Chest pain Continue home meds Qualifiers: Coronary Disease-Associated Artery/Lesion type: [place] artery [place] vs. transplanted heart: [place] heart Associated angina: without angina Qualified Code(s): I25.10 - Atherosclerotic heart disease of [place] coronary artery without angina pectoris (4) COPD (chronic obstructive pulmonary disease) Current Visit: Yes Status: Chronic Assessment and plan: Chronic stable, no wheezing on exam Duonebs prn Levofloxacin for total of 7 days (Day 5/7) O2 by [place] Qualifiers: COPD type: unspecified COPD Qualified Code(s): J44.9 - Chronic obstructive pulmonary disease, unspecified (5) Diastolic CHF Current Visit: Yes Status: Chronic Assessment and plan: Does not appear to be in clinical exacerbation Hold home dose of Lasix and Metolazone Monitor I/O's, obtain daily weights Qualifiers: Congestive heart failure chronicity: chronic Qualified Code(s): I50.32 - Chronic diastolic (congestive) heart failure (6) Hypertension Current Visit: Yes Status: Chronic Assessment and plan: BP within acceptable range Continue BB Qualifiers: Hypertension type: essential hypertension Qualified Code(s): I10 - Essential (primary) hypertension (7) Insulin dependent diabetes mellitus Current Visit: Yes Status: Chronic Assessment and plan: Continue SSI ACHS accuchecks Better control of blood glucose noted will continue Levemir to 35units qHS will continue to monitor fingerstick and blood glucose (8) Paroxysmal a-fib Current Visit: Yes Status: Chronic Assessment and plan: Not on anticoagulation due to GI bleed rate controlled with BB (9) S/P MVR (mitral valve replacement) Current Visit: Yes Status: Chronic (10) DVT prophylaxis Current Visit: Yes Status: Acute Assessment and plan: Heparin SQ - Subjective Interval history: Pt seen and examined. Patient s/p right posterior lateral thoracotomy with partial decortication and chemical pleurodesis-POD #7. Patient seen and examined at bedside. saturating well on room air. Pain controlled with the current medication regimen. PT eval requested, PT recommended inpatient rehab/swing bed - Constitutional Vitals: Temp Pulse Resp BP Pulse Ox 98.1 F 81 18 141/63 94 L 05/02/16 07:22 05/02/16 07:22 05/02/16 07:22 05/02/16 07:22 05/02/16 07:22 General appearance: Present: cooperative, A&O X 3, pleasant, no acute distress, obese, answers questions appropriately - Head Head exam: Present: atraumatic, normocephalic - Eye Eye exam: Present: normal appearance, conjuntiva pink, sclera anicteric - Respiratory Respiratory exam: Present: CTAB. Absent: accessory muscle use (right chest tubes in place), rales, rhonchi, wheezes - Cardiovascular Cardiovascular exam: Present: RRR, +S1, +S2 - GI/Abdominal GI/Abdominal exam: Present: normal bowel sounds, soft, no peritoneal signs. Absent: distended, tenderness - Extremities Exam Extremities exam: Present: warm, radial pulses palpable and symetrical. Absent : calf tenderness, cyanotic, pedal edema - Neurological Exam Neurological exam: Present: alert, oriented X3 - Psychiatric Psychiatric exam: Present: normal affect, normal mood Internal Medicine: Result - Labs CBC & Chem 7: 05/02/16 05:22 05/02/16 05:22 Labs: Short CBC 05/02/16 Range/Units 05:22 WBC 7.9 (4.3-11.1) K/mcL Hgb 9.5 L (12.9-16.9) g/dL Hct 29.6 L (37.5-50.1) % Plt Count 186 (140-400) K/mcL Neutrophils # 5.9 (1.6-8.9) K/mcL BMP 05/02/16 05:22 Sodium 138 Potassium 4.3 Chloride 111 H Carbon Dioxide 20 BUN 40 H Creatinine 0.82 Glucose 74 Calcium 8.0 L - ABG Interpretation ABG results: ABG ABG pH 7.37 pH Units (7.32-7.45) 04/27/16 04:46 ABG pCO2 54 mmHg (35-45) H 04/27/16 04:46 ABG pO2 131 mmHg (85-104) H 04/27/16 04:46 ABG O2 Saturation 99 % (95-98) H 04/27/16 04:46 PT/INR, D-dimer PT 12.4 Seconds (9.4-12.1) H 04/18/16 15:50 - Impressions Impressions Chest X-Ray 05/02/16 06:00 IMPRESSION: Stable chest with multifocal opacities throughout the right lung and no discernible pneumothorax. D/ / Renan Urbano MD / Renan Urbano MD Interpreting Provider: Renan Urbano MD - VTE Documentation of Mechanical Device: Intermittent pneumatic compression device Consult Discharge Plan - Plan Referrals: Gela Nazario MD [Partnered Physician] - 05/16/16 1:40 pm Amauri Lama MD [Partnered Physician] - 05/07/16 11:30 am ()
[2016-05-02] MEDS: Budesonide/Formoterol 160/4.5 MDI IH SCH ×2 (11:13→22:46)
--- NOTE | 2016-05-02 12:22 | Cardiothoracic Progress Note ---
Date of Encounter: 05/02/16 Time of Encounter: 12:20 - Assessment and plan (1) Pleural effusion Current Visit: No Status: Acute The patient is recovering well from his right thoracotomy and decortication. He is breathing comfortably. The air leak remains stopped. Chest tubes are placed to waterseal. The assessment and plan as outlined above was discussed with the patient and/or family members who expressed understanding and agreement. All questions were answered. - Subjective Procedure(s) Performed: POD#6 S/P Right thoracotomy with decortication Interval history: The patient is sitting at the side of his hospital bed. He is breathing comfortably. He has no complaints. Vital Signs, Last 4 Hours Temp Pulse Resp BP Pulse Ox 05/02/16 11:18 98.0 F 69 18 125/51 100 05/02/16 11:14 16 96 Oxgyen Flow Rate Oxygen Flow Rate (LPM) 0 Clinical Data, last 8 Hours Output, Chest Tube Drainage 0 Amount [Right Lateral Chest #2 ] Output, Chest Tube Drainage 0 Amount [Right Lateral Chest #2 ] Output, Chest Tube Drainage 0 Amount [Right Lateral Chest #2 ] Output, Chest Tube Drainage 30 Amount [Right Upper] Output, Chest Tube Drainage 20 Amount [Right Upper] Output, Chest Tube Drainage 20 Amount [Right Upper] Weight 04/30/16 05/01/16 05/02/16 23:59 23:59 23:59 Weight 99.5 kg 102.2 kg 104.8 kg - Physical Examination General: Conversant, No Apparent Distress Neck: No JVD, Normal carotid pulses Cardiac: Reg Rate and Rhythm, Normal S1 and S2, No Murmur Incision: No signs of infection Lungs: Normal Breath Sounds, No Wheeze, Rales, Rhonchi Neuro: Alert and responsive, No focal deficits noted Vascular: Normal capillary refill Extremities: No Clubbing, No Cyanosis, No Edema, Normal Pulses - Labs 05/02/16 05:22 05/02/16 05:22 Lab Results, Last 24 hours 05/02/16 05/02/16 05:22 05:22 WBC 7.9 Hgb 9.5 L Hct 29.6 L Plt Count 186 Sodium 138 Potassium 4.3 Chloride 111 H Carbon Dioxide 20 BUN 40 H Creatinine 0.82 Glucose 74 Calcium 8.0 L Magnesium 2.1 - Imaging Chest Xray: image reviewed (No pneumothorax. No change in the right lung field opacities.) - VTE Documentation of Mechanical Device: Intermittent pneumatic compression device Consult Discharge Plan - Plan Referrals: Gela Nazario MD [Partnered Physician] - 05/16/16 1:40 pm Amauri Lama MD [Partnered Physician] - 05/07/16 11:30 am ()
[2016-05-02] MEDS: levoFLOXacin 500 MG TABLET PO SCH (15:12)
[2016-05-02] MEDS ORDERED: MOM Conc 10 ML UD.LIQ PO ONE (15:42)
[2016-05-02] MEDS: *HR* HYDROcodone/Acet 5/325 mg TABLET PO PRN (17:08)
[2016-05-02] MEDS: Insulin DETEMIR 100 UNIT/ML X5UNITS SQ SCH (22:01)
[2016-05-03] MEDS: Ipratropium/Albuterol Neb 3 ML IH SCH ×3 (03:40→15:41)
[2016-05-03 05:16] LABS: Basophils % 0.3 %; Eosinophils # 0.2 K/mcL (0.0-0.6); Eosinophils % 2.4 %; Hematocrit 29.4 % (37.5-50.1); Hemoglobin 9.3 g/dL (12.9-16.9); Immature Granulocytes % 0.8 % (0-4); Lymphocytes # 1.1 K/mcL (0.6-4.6); Lymphocytes % 14.1 %; Mean Corpuscular HGB Conc 31.6 g/dL (31.6-35.5); Mean Corpuscular Hemoglobin 30.4 pg (28.0-33.3); Mean Corpuscular Volume 96.1 fL (83.0-100.0); Mean Platelet Volume 10.1 fL (9.4-12.4); Monocytes # 0.6 K/mcL (0.0-1.3); Monocytes % 7.6 %; Neutrophils # 5.8 K/mcL (1.6-8.9); Platelet Count 175 K/mcL (140-400); Red Blood Count 3.06 M/mcL (4.19-5.50); Red Cell Distribution Width 15.8 % (11.5-14.5); Segmented Neutrophils % 74.8 %
[2016-05-03 05:44] LABS: BUN/Creatinine Ratio 45 (6-26); Blood Urea Nitrogen 41 mg/dL (8-26); Calcium 7.9 mg/dL (8.6-10.8); Carbon Dioxide 16 mEq/L (19-29); Chloride 113 mEq/L (98-109); Glucose 91 mg/dL (70-99); Magnesium 2.2 mg/dL (1.6-2.6); Osmolality,Calculated 296 (280-300); Phosphorous 3.1 mg/dL (2.3-4.7); Potassium 4.4 mEq/L (3.5-4.5); Sodium 138 mEq/L (136-145); eGFR For African Americans > 60 (> 60); eGFR For Non-African Americans > 60 (> 60)
[2016-05-03] MEDS: *HR* Heparin 5,000 UNIT/ML VIAL SQ SCH ×2 (06:29→17:51)
--- NOTE | 2016-05-03 07:46 | Cardiothoracic Progress Note ---
Date of Encounter: 05/03/16 Time of Encounter: 07:43 - Assessment and plan (1) Pleural effusion Current Visit: No Status: Acute The patient is recovering well from his right thoracotomy and decortication. He is breathing comfortably. Chest tubes were removed. The assessment and plan as outlined above was discussed with the patient and/or family members who expressed understanding and agreement. All questions were answered. - Subjective Procedure(s) Performed: POD#7 S/P Right thoracotomy with decortication Interval history: The patient is resting comfortably in his hospital bed. He is breathing comfortably. He has no complaints. Vital Signs, Last 4 Hours Temp Pulse Resp BP Pulse Ox 05/03/16 04:42 97.8 F 81 17 149/70 95 Oxgyen Flow Rate Oxygen Flow Rate (LPM) 0 Clinical Data, last 8 Hours Output, Chest Tube Drainage 10 Amount [Right Lateral Chest #2 ] Output, Chest Tube Drainage 10 Amount [Right Upper] Output, Urine Amount [Urethral 80 (Cash)] Output, Urine Amount 60 Weight 05/01/16 05/02/16 05/03/16 23:59 23:59 23:59 Weight 102.2 kg 104.8 kg - Physical Examination General: Conversant, No Apparent Distress Neck: No JVD, Normal carotid pulses Cardiac: Reg Rate and Rhythm, Normal S1 and S2, No Murmur Incision: No signs of infection, Dry/intact dressing Chest tubes: Minimal drainage, Other (No air leak.) Lungs: Normal Breath Sounds, No Wheeze, Rales, Rhonchi Neuro: Alert and responsive, No focal deficits noted Vascular: Normal capillary refill Extremities: No Clubbing, No Cyanosis, No Edema - Labs 05/03/16 04:56 05/03/16 04:56 Lab Results, Last 24 hours 05/03/16 05/03/16 04:56 04:56 WBC 7.8 Hgb 9.3 L Hct 29.4 L Plt Count 175 Sodium 138 Potassium 4.4 Chloride 113 H Carbon Dioxide 16 L BUN 41 H Creatinine 0.91 Glucose 91 Calcium 7.9 L Magnesium 2.2 - Imaging Chest Xray: image reviewed (No pneumothorax. Small right pleural effusion, unchanged.) - VTE Documentation of Mechanical Device: Intermittent pneumatic compression device Consult Discharge Plan - Plan Referrals: Gela Nazario MD [Partnered Physician] - 05/16/16 1:40 pm Amauri Lama MD [Partnered Physician] - 05/07/16 11:30 am ()
[2016-05-03] MEDS: *HR* HYDROmorphone 20 MG/20 ML PCA IVC PRN (08:04)
[2016-05-03] MEDS: *HR* HYDROcodone/Acet 5/325 mg TABLET PO PRN ×3 (08:08→21:59)
[2016-05-03] MEDS: Insulin LISPRO 300 UNITS/3 ML VIAL SQ SCH ×4 (08:09→20:34)
[2016-05-03] MEDS: Aspirin Enteric Coated 81 MG Tablet PO SCH (08:09)
[2016-05-03] MEDS: Multivit/Ca/Min/Fe/FA 1 TAB TABLET PO SCH (08:09)
--- NOTE | 2016-05-03 08:43 | Internal Med Progress Note ---
Date of Encounter: 05/03/16 Time of Encounter: 08:41 - Assessment and plan (1) Hydropneumothorax Current Visit: Yes Status: Acute Assessment and plan: s/p Right posterior lateral thoracotomy with partial decortication and chemical pleurodesis-POD 7 Cardiothoracic surgery consultation appreciated CXR shows resolution of the pneumothorax Pain control Patient encouraged to get out of bed to chair and ambulate as tolerated PT eval revaluation requested will continue PT while in house Chest tubes removed (05/03/16) Initiate D/C planning (2) Mqcmo-mt-hbrvnku kidney injury Current Visit: Yes Status: Acute Assessment and plan: Likely secondary to underlying CKD worsened with enlarged prostate causing outlet obstruction SHELIA resolved Will restart low dose Lasix given chest tubes are removed. Will continue to hold KRISTIN/ARB given BP within acceptable range despite holding these medications Likely to be discharged with russell cath-patient in agreement Nephro eval appreciated Continue Flomax continue to avoid nephrotoxic agents (3) CAD (coronary artery disease) Current Visit: Yes Status: Chronic Assessment and plan: Chronic, stable, no Chest pain Continue home meds Qualifiers: Coronary Disease-Associated Artery/Lesion type: [place] artery [place] vs. transplanted heart: [place] heart Associated angina: without angina Qualified Code(s): I25.10 - Atherosclerotic heart disease of [place] coronary artery without angina pectoris (4) COPD (chronic obstructive pulmonary disease) Current Visit: Yes Status: Chronic Assessment and plan: Chronic stable, no wheezing on exam Duonebs prn Levofloxacin for total of 7 days (Day 6/7) O2 by [place] as needed Qualifiers: COPD type: unspecified COPD Qualified Code(s): J44.9 - Chronic obstructive pulmonary disease, unspecified (5) Diastolic CHF Current Visit: Yes Status: Chronic Assessment and plan: Does not appear to be in clinical exacerbation Hold home dose of Lasix and Metolazone Monitor I/O's, obtain daily weights Qualifiers: Congestive heart failure chronicity: chronic Qualified Code(s): I50.32 - Chronic diastolic (congestive) heart failure (6) Hypertension Current Visit: Yes Status: Chronic Assessment and plan: BP within acceptable range Continue BB Qualifiers: Hypertension type: essential hypertension Qualified Code(s): I10 - Essential (primary) hypertension (7) Insulin dependent diabetes mellitus Current Visit: Yes Status: Chronic Assessment and plan: Continue SSI ACHS accuchecks Better control of blood glucose noted will continue Levemir to 35units qHS will continue to monitor fingerstick and blood glucose (8) Paroxysmal a-fib Current Visit: Yes Status: Chronic Assessment and plan: Not on anticoagulation due to GI bleed rate controlled with BB (9) S/P MVR (mitral valve replacement) Current Visit: Yes Status: Chronic (10) DVT prophylaxis Current Visit: Yes Status: Acute Assessment and plan: Heparin SQ - Subjective Interval history: Pt seen and examined. Patient s/p right posterior lateral thoracotomy with partial decortication and chemical pleurodesis-POD #8. Patient seen and examined at bedside. saturating well on room air. Pain controlled with the current medication regimen.Chest tubes removed today (). Reevaluation by physical therapy requested. Patient in agreement to leave the russell cath in until outpatient follow up with Urology - Constitutional Vitals: Temp Pulse Resp BP Pulse Ox 98.2 F 77 19 104/52 93 L 05/03/16 07:32 05/03/16 08:24 05/03/16 07:32 05/03/16 07:32 05/03/16 07:32 General appearance: Present: cooperative, A&O X 3, pleasant, no acute distress, obese, answers questions appropriately - Head Head exam: Present: atraumatic, normocephalic - Eye Eye exam: Present: conjuntiva pink, sclera anicteric - Respiratory Respiratory exam: Present: CTAB. Absent: respiratory distress, wheezes - Cardiovascular Cardiovascular exam: Present: RRR, +S1, +S2. Absent: diastolic murmur, gallop, rubs, systolic murmur - GI/Abdominal GI/Abdominal exam: Present: normal bowel sounds, soft, no peritoneal signs. Absent: distended, tenderness - Extremities Exam Extremities exam: Present: warm, radial pulses palpable and symetrical. Absent : calf tenderness, cyanotic, pedal edema - Neurological Exam Neurological exam: Present: alert, oriented X3 - Psychiatric Psychiatric exam: Present: normal affect, normal mood Internal Medicine: Result - Labs CBC & Chem 7: 05/03/16 04:56 05/03/16 04:56 Labs: Short CBC 05/03/16 Range/Units 04:56 WBC 7.8 (4.3-11.1) K/mcL Hgb 9.3 L (12.9-16.9) g/dL Hct 29.4 L (37.5-50.1) % Plt Count 175 (140-400) K/mcL Neutrophils # 5.8 (1.6-8.9) K/mcL BMP 05/03/16 04:56 Sodium 138 Potassium 4.4 Chloride 113 H Carbon Dioxide 16 L BUN 41 H Creatinine 0.91 Glucose 91 Calcium 7.9 L - ABG Interpretation ABG results: ABG ABG pH 7.37 pH Units (7.32-7.45) 04/27/16 04:46 ABG pCO2 54 mmHg (35-45) H 04/27/16 04:46 ABG pO2 131 mmHg (85-104) H 04/27/16 04:46 ABG O2 Saturation 99 % (95-98) H 04/27/16 04:46 PT/INR, D-dimer PT 12.4 Seconds (9.4-12.1) H 04/18/16 15:50 - Impressions Impressions Chest X-Ray 05/03/16 06:56 IMPRESSION: Stable chest. Stable cardiomegaly. Patchy airspace opacities, most pronounced in the right mid to lower lung field, likely related to pulmonary edema versus atelectasis or pneumonia. Stable small right pleural effusion. D/ / Shiva Lora MD / Shiva Lora MD Interpreting Provider: Shiva Lora MD - VTE Documentation of Mechanical Device: Intermittent pneumatic compression device Consult Discharge Plan - Plan Referrals: Gela Nazario MD [Partnered Physician] - 05/16/16 1:40 pm Amauri Lama MD [Partnered Physician] - 05/07/16 11:30 am ()
[2016-05-03] MEDS: Budesonide/Formoterol 160/4.5 MDI IH SCH (11:22)
[2016-05-03] MEDS: Furosemide 20 MG TABLET PO SCH (11:40)
[2016-05-03] MEDS: levoFLOXacin 500 MG TABLET PO SCH (15:06)
[2016-05-03] MEDS: Insulin DETEMIR 100 UNIT/ML X5UNITS SQ SCH (21:59)
[2016-05-04] MEDS: Ipratropium/Albuterol Neb 3 ML IH SCH ×5 (00:34→22:46)
[2016-05-04] MEDS: Budesonide/Formoterol 160/4.5 MDI IH SCH ×3 (00:35→22:46)
[2016-05-04] MEDS: *HR* Heparin 5,000 UNIT/ML VIAL SQ SCH ×2 (06:14→17:17)
[2016-05-04 06:18] LABS: Basophils % 0.1 %; Eosinophils # 0.2 K/mcL (0.0-0.6); Eosinophils % 1.9 %; Hematocrit 27.6 % (37.5-50.1); Lymphocytes # 1.5 K/mcL (0.6-4.6); Lymphocytes % 15.8 %; Mean Corpuscular HGB Conc 32.6 g/dL (31.6-35.5); Mean Corpuscular Hemoglobin 31.3 pg (28.0-33.3); Mean Corpuscular Volume 95.8 fL (83.0-100.0); Mean Platelet Volume 10.6 fL (9.4-12.4); Monocytes # 0.7 K/mcL (0.0-1.3); Monocytes % 7.4 %; Neutrophils # 6.8 K/mcL (1.6-8.9); Platelet Count 187 K/mcL (140-400); Red Blood Count 2.88 M/mcL (4.19-5.50); Red Cell Distribution Width 15.8 % (11.5-14.5); Segmented Neutrophils % 73.8 %
[2016-05-04 06:35] LABS: BUN/Creatinine Ratio 41 (6-26); Blood Urea Nitrogen 45 mg/dL (8-26); Calcium 8.3 mg/dL (8.6-10.8); Carbon Dioxide 20 mEq/L (19-29); Chloride 111 mEq/L (98-109); Glucose 70 mg/dL (70-99); Magnesium 2.1 mg/dL (1.6-2.6); Osmolality,Calculated 296 (280-300); Phosphorous 2.7 mg/dL (2.3-4.7); Potassium 4.2 mEq/L (3.5-4.5); Sodium 138 mEq/L (136-145); eGFR For African Americans > 60 (> 60); eGFR For Non-African Americans > 60 (> 60)
[2016-05-04] MEDS: Multivit/Ca/Min/Fe/FA 1 TAB TABLET PO SCH (08:06)
[2016-05-04] MEDS: *HR* HYDROcodone/Acet 5/325 mg TABLET PO PRN ×3 (08:07→19:38)
[2016-05-04] MEDS: Aspirin Enteric Coated 81 MG Tablet PO SCH (08:07)
[2016-05-04] MEDS: Furosemide 20 MG TABLET PO SCH (08:07)
[2016-05-04] MEDS: Insulin LISPRO 300 UNITS/3 ML VIAL SQ SCH ×4 (08:08→21:34)
--- NOTE | 2016-05-04 08:15 | Cardiothoracic Progress Note ---
Date of Encounter: 05/04/16 Time of Encounter: 08:13 - Assessment and plan (1) Pleural effusion Current Visit: No Status: Acute The patient is recovering well from his right thoracotomy and decortication. He is breathing comfortably. The patient may be discharged home at the discretion of the hospitalist service. He should see me in the office in 3-4 weeks. The assessment and plan as outlined above was discussed with the patient and/or family members who expressed understanding and agreement. All questions were answered. - Subjective Procedure(s) Performed: POD#8 S/P Right thoracotomy with decortication Interval history: The patient is resting comfortably in his hospital bed. He is breathing comfortably. He has no complaints. Vital Signs, Last 4 Hours Temp Pulse Resp BP Pulse Ox 05/04/16 06:54 97.8 F 79 18 131/60 95 05/04/16 04:34 73 05/04/16 04:33 98.1 F 71 19 106/65 97 05/04/16 04:21 16 94 L Oxgyen Flow Rate Oxygen Flow Rate (LPM) 0 Weight 05/02/16 05/03/16 05/04/16 23:59 23:59 23:59 Weight 104.8 kg - Physical Examination General: Conversant, No Apparent Distress Neck: No JVD, Normal carotid pulses Cardiac: Reg Rate and Rhythm, Normal S1 and S2, No Murmur Incision: No signs of infection, Dry/intact dressing Lungs: Normal Breath Sounds, No Wheeze, Rales, Rhonchi Neuro: Alert and responsive, No focal deficits noted Vascular: Normal capillary refill Extremities: No Clubbing, No Cyanosis, No Edema - Labs 05/04/16 05:44 05/04/16 05:44 Lab Results, Last 24 hours 05/04/16 05/04/16 05:44 05:44 WBC 9.3 Hgb 9.0 L Hct 27.6 L Plt Count 187 Sodium 138 Potassium 4.2 Chloride 111 H Carbon Dioxide 20 BUN 45 H Creatinine 1.11 Glucose 70 Calcium 8.3 L Magnesium 2.1 - Imaging Chest Xray: image reviewed (The pneumothorax. Small right pleural effusion, unchanged.) - VTE Documentation of Mechanical Device: Intermittent pneumatic compression device Consult Discharge Plan - Plan Referrals: Gela Nazario MD [Partnered Physician] - 05/16/16 1:40 pm Amauri Lama MD [Partnered Physician] - 05/07/16 11:30 am ()
--- NOTE | 2016-05-04 10:55 | Internal Med Progress Note ---
Date of Encounter: 05/04/16 Time of Encounter: 10:52 - Assessment and plan (1) Hydropneumothorax Current Visit: Yes Status: Acute Assessment and plan: s/p Right posterior lateral thoracotomy with partial decortication and chemical pleurodesis Cardiothoracic surgery consultation appreciated CXR shows resolution of the pneumothorax Pain control Patient encouraged to get out of bed to chair and ambulate as tolerated PT eval revaluation requested will continue PT while in house Chest tubes removed (05/03/16) Initiate D/C planning Discharge pending placement (2) Izzxp-gf-hrgphxk kidney injury Current Visit: Yes Status: Acute Assessment and plan: Likely secondary to underlying CKD worsened with enlarged prostate causing outlet obstruction SHELIA resolved Will restart low dose Lasix given chest tubes are removed. Will continue to hold KRISTIN/ARB given BP within acceptable range despite holding these medications Likely to be discharged with russell cath-patient in agreement Nephro eval appreciated Continue Flomax continue to avoid nephrotoxic agents (3) CAD (coronary artery disease) Current Visit: Yes Status: Chronic Assessment and plan: Chronic, stable, no Chest pain Continue home meds Qualifiers: Coronary Disease-Associated Artery/Lesion type: [place] artery [place] vs. transplanted heart: [place] heart Associated angina: without angina Qualified Code(s): I25.10 - Atherosclerotic heart disease of [place] coronary artery without angina pectoris (4) COPD (chronic obstructive pulmonary disease) Current Visit: Yes Status: Chronic Assessment and plan: Chronic stable, no wheezing on exam Duonebs prn Levofloxacin for total of 7 days (Day 77) O2 by [place] as needed Qualifiers: COPD type: unspecified COPD Qualified Code(s): J44.9 - Chronic obstructive pulmonary disease, unspecified (5) Diastolic CHF Current Visit: Yes Status: Chronic Assessment and plan: Does not appear to be in clinical exacerbation Hold home dose of Metolazone Restarted Lasix Monitor I/O's, obtain daily weights Qualifiers: Congestive heart failure chronicity: chronic Qualified Code(s): I50.32 - Chronic diastolic (congestive) heart failure (6) Hypertension Current Visit: Yes Status: Chronic Assessment and plan: BP within acceptable range Continue BB Qualifiers: Hypertension type: essential hypertension Qualified Code(s): I10 - Essential (primary) hypertension (7) Insulin dependent diabetes mellitus Current Visit: Yes Status: Chronic Assessment and plan: Continue SSI ACHS accuchecks Better control of blood glucose noted will continue Levemir to 35units qHS will continue to monitor fingerstick and blood glucose (8) Paroxysmal a-fib Current Visit: Yes Status: Chronic Assessment and plan: Not on anticoagulation due to GI bleed rate controlled with BB (9) S/P MVR (mitral valve replacement) Current Visit: Yes Status: Chronic (10) DVT prophylaxis Current Visit: Yes Status: Acute Assessment and plan: Heparin SQ - Subjective Interval history: Pt seen and examined. Patient s/p right posterior lateral thoracotomy with partial decortication and chemical pleurodesis-POD #9. Patient seen and examined at bedside. saturating well on room air. Pain controlled with the current medication regimen.Chest tubes removed(05/03/16). Reevaluation by physical therapy requested. Patient in agreement to leave the russell cath in until outpatient follow up with Urology Discharge planning initiated. Discharge pending placement - Constitutional Vitals: Temp Pulse Resp BP Pulse Ox 98.0 F 69 17 112/54 95 05/04/16 10:31 05/04/16 10:31 05/04/16 10:31 05/04/16 10:31 05/04/16 10:31 General appearance: Present: cooperative, A&O X 3, pleasant, no acute distress, obese, answers questions appropriately - Head Head exam: Present: atraumatic, normocephalic - Eye Eye exam: Present: conjuntiva pink, sclera anicteric - Respiratory Respiratory exam: Present: CTAB. Absent: accessory muscle use, rales, rhonchi, wheezes - Cardiovascular Cardiovascular exam: Present: RRR, +S1, +S2. Absent: diastolic murmur, gallop, rubs, systolic murmur - GI/Abdominal GI/Abdominal exam: Present: normal bowel sounds, soft, no peritoneal signs. Absent: distended, tenderness - Extremities Exam Extremities exam: Present: warm, radial pulses palpable and symetrical. Absent : calf tenderness, cyanotic, pedal edema - Neurological Exam Neurological exam: Present: alert, oriented X3 - Psychiatric Psychiatric exam: Present: normal affect, normal mood Internal Medicine: Result - Labs CBC & Chem 7: 05/04/16 05:44 05/04/16 05:44 Labs: Short CBC 05/04/16 Range/Units 05:44 WBC 9.3 (4.3-11.1) K/mcL Hgb 9.0 L (12.9-16.9) g/dL Hct 27.6 L (37.5-50.1) % Plt Count 187 (140-400) K/mcL Neutrophils # 6.8 (1.6-8.9) K/mcL BMP 05/04/16 05:44 Sodium 138 Potassium 4.2 Chloride 111 H Carbon Dioxide 20 BUN 45 H Creatinine 1.11 Glucose 70 Calcium 8.3 L - ABG Interpretation ABG results: ABG ABG pH 7.37 pH Units (7.32-7.45) 04/27/16 04:46 ABG pCO2 54 mmHg (35-45) H 04/27/16 04:46 ABG pO2 131 mmHg (85-104) H 04/27/16 04:46 ABG O2 Saturation 99 % (95-98) H 04/27/16 04:46 PT/INR, D-dimer PT 12.4 Seconds (9.4-12.1) H 04/18/16 15:50 - Impressions Impressions Chest X-Ray 05/04/16 06:00 IMPRESSION: Right-sided pleural effusion. Interval removal of right thoracotomy tube. No evidence for pneumothorax. D/ / 05/04/2016 07:42:44 Lambert Lomas MD / [email or web address] Interpreting Provider: Lambert Lomas MD - VTE Documentation of Mechanical Device: Intermittent pneumatic compression device Consult Discharge Plan - Plan Referrals: Gela Nazario MD [Partnered Physician] - 05/16/16 1:40 pm Amauri Lama MD [Partnered Physician] - 05/07/16 11:30 am ()
[2016-05-04] MEDS: levoFLOXacin 500 MG TABLET PO SCH (15:01)
[2016-05-04] MEDS: Insulin DETEMIR 100 UNIT/ML X5UNITS SQ SCH (21:32)
[2016-05-05] MEDS: *HR* HYDROcodone/Acet 5/325 mg TABLET PO PRN ×5 (00:44→21:05)
[2016-05-05] MEDS: Ipratropium/Albuterol Neb 3 ML IH SCH ×4 (04:20→23:34)
[2016-05-05] MEDS: *HR* Heparin 5,000 UNIT/ML VIAL SQ SCH ×2 (05:53→18:20)
[2016-05-05 06:21] LABS: Basophils % 0.1 %; Eosinophils # 0.2 K/mcL (0.0-0.6); Hematocrit 28.7 % (37.5-50.1); Lymphocytes # 0.9 K/mcL (0.6-4.6); Lymphocytes % 9.5 %; Mean Corpuscular HGB Conc 31.4 g/dL (31.6-35.5); Mean Corpuscular Hemoglobin 29.7 pg (28.0-33.3); Mean Corpuscular Volume 94.7 fL (83.0-100.0); Mean Platelet Volume 9.9 fL (9.4-12.4); Monocytes # 0.6 K/mcL (0.0-1.3); Monocytes % 6.2 %; Neutrophils # 7.3 K/mcL (1.6-8.9); Platelet Count 202 K/mcL (140-400); Red Blood Count 3.03 M/mcL (4.19-5.50); Red Cell Distribution Width 16.1 % (11.5-14.5); Segmented Neutrophils % 81.2 %
[2016-05-05 06:33] LABS: BUN/Creatinine Ratio 37 (6-26); Blood Urea Nitrogen 39 mg/dL (8-26); Calcium 8.1 mg/dL (8.6-10.8); Carbon Dioxide 20 mEq/L (19-29); Chloride 112 mEq/L (98-109); Glucose 114 mg/dL (70-99); Magnesium 1.9 mg/dL (1.6-2.6); Osmolality,Calculated 300 (280-300); Phosphorous 3.2 mg/dL (2.3-4.7); Potassium 4.5 mEq/L (3.5-4.5); Sodium 140 mEq/L (136-145); eGFR For African Americans > 60 (> 60); eGFR For Non-African Americans > 60 (> 60)
[2016-05-05] MEDS: Insulin LISPRO 300 UNITS/3 ML VIAL SQ SCH ×4 (07:38→21:07)
[2016-05-05] MEDS: Furosemide 20 MG TABLET PO SCH (07:50)
[2016-05-05] MEDS: Aspirin Enteric Coated 81 MG Tablet PO SCH (07:51)
[2016-05-05] MEDS: Multivit/Ca/Min/Fe/FA 1 TAB TABLET PO SCH (07:51)
--- NOTE | 2016-05-05 08:54 | Internal Med Progress Note ---
Date of Encounter: 05/05/16 Time of Encounter: 09:09 - Assessment and plan (1) Hydropneumothorax Current Visit: Yes Status: Acute Assessment and plan: s/p Right posterior lateral thoracotomy with partial decortication and chemical pleurodesis Cardiothoracic surgery consultation appreciated CXR shows resolution of the pneumothorax Pain control Patient encouraged to get out of bed to chair and ambulate as tolerated PT eval revaluation requested will continue PT while in house Chest tubes removed (05/03/16) Initiate D/C planning Follow up with Dr. Nazario after discharge (appointment scheduled) Discharge pending placement (2) Wfqfs-yr-tiaowor kidney injury Current Visit: Yes Status: Acute Assessment and plan: Likely secondary to underlying CKD worsened with enlarged prostate causing outlet obstruction SHELIA resolved Continue Lasix given chest tubes are removed. Will continue to hold KRISTIN/ARB given BP within acceptable range despite holding these medications Likely to be discharged with russell cath-patient in agreement Nephro eval appreciated Continue Flomax continue to avoid nephrotoxic agents (3) CAD (coronary artery disease) Current Visit: Yes Status: Chronic Assessment and plan: Chronic, stable, no Chest pain Continue home meds Qualifiers: Coronary Disease-Associated Artery/Lesion type: [place] artery [place] vs. transplanted heart: [place] heart Associated angina: without angina Qualified Code(s): I25.10 - Atherosclerotic heart disease of [place] coronary artery without angina pectoris (4) COPD (chronic obstructive pulmonary disease) Current Visit: Yes Status: Chronic Assessment and plan: Chronic stable, no wheezing on exam Duonebs prn Levofloxacin for total of 7 days (Day 7)-completed therapy on 05/04/16 O2 by [place] as needed Qualifiers: COPD type: unspecified COPD Qualified Code(s): J44.9 - Chronic obstructive pulmonary disease, unspecified (5) Diastolic CHF Current Visit: Yes Status: Chronic Assessment and plan: Does not appear to be in clinical exacerbation continue Lasix Monitor I/O's, obtain daily weights Qualifiers: Congestive heart failure chronicity: chronic Qualified Code(s): I50.32 - Chronic diastolic (congestive) heart failure (6) Hypertension Current Visit: Yes Status: Chronic Assessment and plan: BP within acceptable range Continue BB Qualifiers: Hypertension type: essential hypertension Qualified Code(s): I10 - Essential (primary) hypertension (7) Insulin dependent diabetes mellitus Current Visit: Yes Status: Chronic Assessment and plan: Continue SSI ACHS accuchecks Better control of blood glucose noted will continue Levemir to 35units qHS will continue to monitor fingerstick and blood glucose (8) Paroxysmal a-fib Current Visit: Yes Status: Chronic Assessment and plan: Not on anticoagulation due to GI bleed rate controlled with BB (9) S/P MVR (mitral valve replacement) Current Visit: Yes Status: Chronic (10) DVT prophylaxis Current Visit: Yes Status: Acute Assessment and plan: Heparin SQ - Subjective Interval history: Pt seen and examined. Patient s/p right posterior lateral thoracotomy with partial decortication and chemical pleurodesis-POD #10. Patient seen and examined at bedside. saturating well on room air. Pain controlled with the current medication regimen.Chest tubes removed(05/03/16). Reported of having hematuria overnight, resolved at this time. If recurs will reconsult urology Physical therapy: SNF recommended Patient in agreement to leave the russell cath in until outpatient follow up with Urology Discharge planning initiated. Discharge pending placement - Constitutional Vitals: Temp Pulse Resp BP Pulse Ox 98.4 F 69 14 116/54 96 05/05/16 07:45 05/05/16 07:45 05/05/16 07:45 05/05/16 07:45 05/05/16 07:45 General appearance: Present: cooperative, A&O X 3, pleasant, no acute distress, obese, answers questions appropriately - Head Head exam: Present: atraumatic, normocephalic - Respiratory Respiratory exam: Present: CTAB. Absent: accessory muscle use, rales, rhonchi, wheezes - Cardiovascular Cardiovascular exam: Present: RRR, +S1, +S2. Absent: diastolic murmur, gallop, rubs, systolic murmur - GI/Abdominal GI/Abdominal exam: Present: normal bowel sounds, soft, no peritoneal signs. Absent: distended, tenderness - Extremities Exam Extremities exam: Present: pedal edema, warm, radial pulses palpable and symetrical. Absent: calf tenderness, tenderness - Neurological Exam Neurological exam: Present: alert, oriented X3, no focal deficits - Psychiatric Psychiatric exam: Present: normal affect, normal mood Internal Medicine: Result - Labs CBC & Chem 7: 05/05/16 06:07 05/05/16 06:07 Labs: Short CBC 05/05/16 Range/Units 06:07 WBC 9.0 (4.3-11.1) K/mcL Hgb 9.0 L (12.9-16.9) g/dL Hct 28.7 L (37.5-50.1) % Plt Count 202 (140-400) K/mcL Neutrophils # 7.3 (1.6-8.9) K/mcL BMP 05/05/16 06:07 Sodium 140 Potassium 4.5 Chloride 112 H Carbon Dioxide 20 BUN 39 H Creatinine 1.05 Glucose 114 H Calcium 8.1 L - ABG Interpretation ABG results: ABG ABG pH 7.37 pH Units (7.32-7.45) 04/27/16 04:46 ABG pCO2 54 mmHg (35-45) H 04/27/16 04:46 ABG pO2 131 mmHg (85-104) H 04/27/16 04:46 ABG O2 Saturation 99 % (95-98) H 04/27/16 04:46 PT/INR, D-dimer PT 12.4 Seconds (9.4-12.1) H 04/18/16 15:50 - VTE Documentation of Mechanical Device: Intermittent pneumatic compression device Consult Discharge Plan - Plan Referrals: Gela Nazario MD [Partnered Physician] - 05/16/16 1:40 pm Amauri Lama MD [Partnered Physician] - 05/07/16 11:30 am ()
[2016-05-05] MEDS: Budesonide/Formoterol 160/4.5 MDI IH SCH ×2 (09:26→23:34)
[2016-05-05] MEDS: Insulin DETEMIR 100 UNIT/ML X5UNITS SQ SCH (21:05)
[2016-05-06] MEDS: Ipratropium/Albuterol Neb 3 ML IH SCH ×4 (03:59→21:00)
[2016-05-06 05:19] LABS: Basophils % 0.2 %; Eosinophils # 0.3 K/mcL (0.0-0.6); Eosinophils % 3.5 %; Hematocrit 27.7 % (37.5-50.1); Hemoglobin 8.8 g/dL (12.9-16.9); Immature Granulocytes % 1.1 % (0-4); Lymphocytes # 1.2 K/mcL (0.6-4.6); Lymphocytes % 14.4 %; Mean Corpuscular HGB Conc 31.8 g/dL (31.6-35.5); Mean Corpuscular Hemoglobin 30.4 pg (28.0-33.3); Mean Corpuscular Volume 95.8 fL (83.0-100.0); Mean Platelet Volume 9.9 fL (9.4-12.4); Monocytes # 0.6 K/mcL (0.0-1.3); Monocytes % 7.4 %; Neutrophils # 6.3 K/mcL (1.6-8.9); Platelet Count 209 K/mcL (140-400); Red Blood Count 2.89 M/mcL (4.19-5.50); Red Cell Distribution Width 16.1 % (11.5-14.5); Segmented Neutrophils % 73.4 %
[2016-05-06 05:40] LABS: BUN/Creatinine Ratio 33 (6-26); Blood Urea Nitrogen 35 mg/dL (8-26); Calcium 8.3 mg/dL (8.6-10.8); Carbon Dioxide 22 mEq/L (19-29); Chloride 113 mEq/L (98-109); Glucose 50 mg/dL (70-99); Magnesium 2.2 mg/dL (1.6-2.6); Osmolality,Calculated 297 (280-300); Phosphorous 3.7 mg/dL (2.3-4.7); Potassium 4.4 mEq/L (3.5-4.5); Sodium 141 mEq/L (136-145); eGFR For African Americans > 60 (> 60); eGFR For Non-African Americans > 60 (> 60)
[2016-05-06] MEDS: *HR* Heparin 5,000 UNIT/ML VIAL SQ SCH ×2 (06:41→18:14)
[2016-05-06] MEDS: Insulin LISPRO 300 UNITS/3 ML VIAL SQ SCH ×4 (07:55→21:15)
[2016-05-06] MEDS: *HR* HYDROcodone/Acet 5/325 mg TABLET PO PRN ×2 (08:01→21:13)
[2016-05-06] MEDS: Multivit/Ca/Min/Fe/FA 1 TAB TABLET PO SCH (08:01)
[2016-05-06] MEDS: Furosemide 20 MG TABLET PO SCH (08:01)
[2016-05-06] MEDS: Aspirin Enteric Coated 81 MG Tablet PO SCH (08:02)
--- NOTE | 2016-05-06 08:40 | Internal Med Progress Note ---
Date of Encounter: 05/06/16 Time of Encounter: 09:05 - Constitutional Vitals: Temp Pulse Resp BP Pulse Ox 98.3 F 73 18 132/46 97 05/06/16 08:00 05/06/16 08:00 05/06/16 08:00 05/06/16 08:00 05/06/16 08:00 General appearance: Present: cooperative, A&O X 3, pleasant, no acute distress, obese, answers questions appropriately Internal Medicine: Result - Labs CBC & Chem 7: 05/06/16 04:57 05/06/16 04:57 Labs: Short CBC 05/06/16 Range/Units 04:57 WBC 8.5 (4.3-11.1) K/mcL Hgb 8.8 L (12.9-16.9) g/dL Hct 27.7 L (37.5-50.1) % Plt Count 209 (140-400) K/mcL Neutrophils # 6.3 (1.6-8.9) K/mcL BMP 05/06/16 04:57 Sodium 141 Potassium 4.4 Chloride 113 H Carbon Dioxide 22 BUN 35 H Creatinine 1.06 Glucose 50 L Calcium 8.3 L - ABG Interpretation ABG results: ABG ABG pH 7.37 pH Units (7.32-7.45) 04/27/16 04:46 ABG pCO2 54 mmHg (35-45) H 04/27/16 04:46 ABG pO2 131 mmHg (85-104) H 04/27/16 04:46 ABG O2 Saturation 99 % (95-98) H 04/27/16 04:46 PT/INR, D-dimer PT 12.4 Seconds (9.4-12.1) H 04/18/16 15:50 - Impressions Impressions Chest X-Ray 05/04/16 06:00 IMPRESSION: Right-sided pleural effusion. Interval removal of right thoracotomy tube. No evidence for pneumothorax. D/ / 05/04/2016 07:42:44 Lambert Lomas MD / bee Interpreting Provider: Lambert Lomas MD - VTE Documentation of Mechanical Device: Intermittent pneumatic compression device Consult Discharge Plan - Plan Referrals: Gela Nazario MD [Partnered Physician] - 05/16/16 1:40 pm Amauri Lama MD [Partnered Physician] - 05/07/16 11:30 am ()
[2016-05-06] MEDS ORDERED: Furosemide 20 MG TABLET PO SCH (09:07)
[2016-05-06] MEDS: Budesonide/Formoterol 160/4.5 MDI IH SCH ×2 (10:57→21:00)
[2016-05-06] MEDS: Insulin DETEMIR 100 UNIT/ML X5UNITS SQ SCH (21:13)
[2016-05-07] MEDS: Ipratropium/Albuterol Neb 3 ML IH SCH ×4 (03:45→22:54)
[2016-05-07] MEDS: *HR* Heparin 5,000 UNIT/ML VIAL SQ SCH ×2 (04:36→17:40)
[2016-05-07] MEDS: *HR* HYDROcodone/Acet 5/325 mg TABLET PO PRN ×4 (04:37→22:35)
[2016-05-07 05:23] LABS: Basophils % 0.2 %; Eosinophils # 0.2 K/mcL (0.0-0.6); Eosinophils % 2.1 %; Hematocrit 28.2 % (37.5-50.1); Hemoglobin 8.8 g/dL (12.9-16.9); Immature Granulocytes % 0.8 % (0-4); Lymphocytes # 1.3 K/mcL (0.6-4.6); Lymphocytes % 14.4 %; Mean Corpuscular HGB Conc 31.2 g/dL (31.6-35.5); Mean Corpuscular Hemoglobin 29.8 pg (28.0-33.3); Mean Corpuscular Volume 95.6 fL (83.0-100.0); Mean Platelet Volume 10.1 fL (9.4-12.4); Monocytes # 0.6 K/mcL (0.0-1.3); Monocytes % 6.9 %; Neutrophils # 6.8 K/mcL (1.6-8.9); Platelet Count 209 K/mcL (140-400); Red Blood Count 2.95 M/mcL (4.19-5.50); Red Cell Distribution Width 16.3 % (11.5-14.5); Segmented Neutrophils % 75.6 %
[2016-05-07 05:50] LABS: BUN/Creatinine Ratio 31 (6-26); Blood Urea Nitrogen 31 mg/dL (8-26); Calcium 8.3 mg/dL (8.6-10.8); Carbon Dioxide 20 mEq/L (19-29); Chloride 112 mEq/L (98-109); Glucose 74 mg/dL (70-99); Magnesium 2.1 mg/dL (1.6-2.6); Osmolality,Calculated 295 (280-300); Phosphorous 3.6 mg/dL (2.3-4.7); Sodium 140 mEq/L (136-145); eGFR For African Americans > 60 (> 60); eGFR For Non-African Americans > 60 (> 60)
[2016-05-07] MEDS: Insulin LISPRO 300 UNITS/3 ML VIAL SQ SCH ×4 (08:12→20:27)
[2016-05-07] MEDS: Aspirin Enteric Coated 81 MG Tablet PO SCH (08:26)
[2016-05-07] MEDS: Multivit/Ca/Min/Fe/FA 1 TAB TABLET PO SCH (08:26)
--- NOTE | 2016-05-07 09:30 | Internal Med Progress Note ---
Date of Encounter: 05/07/16 Time of Encounter: 09:27 - Assessment and plan (1) Hydropneumothorax Current Visit: Yes Status: Acute Assessment and plan: Status post right posterior lateral thoracotomy with decortication and chemical pleurodesis, postoperative day 11. Continue pain control with when necessary Tylenol and oxycodone. Incentive spirometry. Not requiring supplemental oxygen at this time. Cardiothoracic surgery signed off at this time, recommend to follow up within 2 weeks after discharge. Physical therapy evaluation recommends inpatient rehabilitation, awaiting placement. (2) Uotdb-up-akawqlh kidney injury Current Visit: Yes Status: Resolved Assessment and plan: Review of patient's GFR show that it has been normal for a while in the last 2 months. Unclear if he does actually have chronic kidney disease. He did have acute on chronic kidney injury during this admission, presumed to be due to outlet obstruction and the plan is for the patient to be discharged home on indwelling Cash catheter. (3) CAD (coronary artery disease) Current Visit: Yes Status: Chronic Assessment and plan: Continue aspirin, statin and beta holly. Qualifiers: Coronary Disease-Associated Artery/Lesion type: bypass graft [place] vs. 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 Not requiring supplemental oxygen at this time. Qualifiers: COPD type: unspecified COPD Qualified Code(s): J44.9 - Chronic obstructive pulmonary disease, unspecified (6) Diastolic CHF Current Visit: Yes Status: Chronic Assessment and plan: Continue aspirin and statin. KRISTIN inhibitor has been held due to renal dysfunction, will restart today If blood pressure tolerates. Patient is noted to have significant pedal edema, Will increase Lasix to 40 mg twice daily. Metolazone has been held at admission, will restart today if blood pressure tolerates. Continue fluid restriction. Qualifiers: Congestive heart failure chronicity: chronic Qualified Code(s): I50.32 - Chronic diastolic (congestive) heart failure (7) Hypertension Current Visit: Yes Status: Chronic Qualifiers: Hypertension type: essential hypertension Qualified Code(s): I10 - Essential (primary) hypertension (8) Insulin dependent diabetes mellitus Current Visit: Yes Status: Chronic Assessment and plan: Continue Accu-Chek blood glucose monitoring with basal bolus insulin regimen. Diabetic diet. Blood sugars noted to be well controlled. (9) Paroxysmal a-fib Current Visit: Yes Status: Chronic Assessment and plan: Status post pacemaker placement. Patient has been noted to refuse anticoagulation due to history of GI bleed. Continue beta holly for rate control. (10) S/P MVR (mitral valve replacement) Current Visit: Yes Status: Chronic - Subjective Interval history: Feels better; improved postoperative pain; reports constipation; - Constitutional Vitals: Temp Pulse Resp BP Pulse Ox 98.9 F 71 18 129/70 96 05/07/16 04:11 05/07/16 08:00 05/07/16 07:46 05/07/16 07:46 05/07/16 07:46 General appearance: Present: A&O X 3, obese, answers questions appropriately - Respiratory Respiratory exam: Present: decreased breath sounds (At right base), CTAB. Absent: accessory muscle use, rales, rhonchi, wheezes Additional comments: Right posterolateral thorax with healing surgical wound and surrounding erythema and ecchymosis, improving - Cardiovascular Cardiovascular exam: Present: RRR, +S1, +S2. Absent: diastolic murmur, gallop, rubs, systolic murmur - GI/Abdominal GI/Abdominal exam: Present: normal bowel sounds, soft, no peritoneal signs. Absent: distended, tenderness - Extremities Exam Extremities exam: Present: full ROM, pedal edema (3+ pitting pedal edema bilaterally), warm, radial pulses palpable and symetrical. Absent: calf tenderness, cyanotic Internal Medicine: Result - Labs CBC & Chem 7: 05/07/16 05:12 05/07/16 05:12 Labs: Short CBC 05/07/16 Range/Units 05:12 WBC 9.0 (4.3-11.1) K/mcL Hgb 8.8 L (12.9-16.9) g/dL Hct 28.2 L (37.5-50.1) % Plt Count 209 (140-400) K/mcL Neutrophils # 6.8 (1.6-8.9) K/mcL BMP 05/07/16 05:12 Sodium 140 Potassium 5.0 H Chloride 112 H Carbon Dioxide 20 BUN 31 H Creatinine 1.00 Glucose 74 Calcium 8.3 L - ABG Interpretation ABG results: ABG ABG pH 7.37 pH Units (7.32-7.45) 04/27/16 04:46 ABG pCO2 54 mmHg (35-45) H 04/27/16 04:46 ABG pO2 131 mmHg (85-104) H 04/27/16 04:46 ABG O2 Saturation 99 % (95-98) H 04/27/16 04:46 PT/INR, D-dimer PT 12.4 Seconds (9.4-12.1) H 04/18/16 15:50 - VTE Documentation of Mechanical Device: Intermittent pneumatic compression device Consult Discharge Plan - Plan Referrals: Gela Nazario MD [Partnered Physician] - 05/16/16 1:40 pm Amauri Lama MD [Partnered Physician] - (PATIENT IS GOING TO [facility])
[2016-05-07] MEDS ORDERED: metOLazone 2.5 MG TABLET PO SCH (09:45)
[2016-05-07] MEDS: Budesonide/Formoterol 160/4.5 MDI IH SCH ×2 (10:55→22:54)
[2016-05-07] MEDS: metOLazone 2.5 MG TABLET PO SCH (11:34)
[2016-05-07] MEDS: Furosemide 20 MG TABLET PO SCH (17:40)
[2016-05-07] MEDS: Insulin DETEMIR 100 UNIT/ML X5UNITS SQ SCH (20:26)
[2016-05-08] MEDS: Ipratropium/Albuterol Neb 3 ML IH SCH ×2 (03:46→10:13)
[2016-05-08] MEDS: *HR* Heparin 5,000 UNIT/ML VIAL SQ SCH (04:44)
[2016-05-08] MEDS: *HR* HYDROcodone/Acet 5/325 mg TABLET PO PRN ×3 (04:45→15:33)
[2016-05-08] MEDS: Insulin LISPRO 300 UNITS/3 ML VIAL SQ SCH ×2 (08:33→11:54)
[2016-05-08] MEDS: Aspirin Enteric Coated 81 MG Tablet PO SCH (08:49)
[2016-05-08] MEDS: Furosemide 20 MG TABLET PO SCH (08:49)
[2016-05-08] MEDS: Multivit/Ca/Min/Fe/FA 1 TAB TABLET PO SCH (08:49)
[2016-05-08] MEDS: metOLazone 2.5 MG TABLET PO SCH (08:53)
[2016-05-08] MEDS: Budesonide/Formoterol 160/4.5 MDI IH SCH (10:13)
[2016-05-08 12:30] VITALS: BP 124/68
--- NOTE | 2016-05-08 12:51 | Discharge Summary ---
Date of Encounter: 05/08/16 Time of Encounter: 09:00 - Discharge Diagnosis (1) Hydropneumothorax Priority: Primary Status: Acute (2) Gtlvz-iz-xxlowcs kidney injury Priority: Primary Status: Resolved (3) CAD (coronary artery disease) Priority: Secondary Status: Chronic Qualifiers: Coronary Disease-Associated Artery/Lesion type: bypass graft [place] vs. 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 angina pectoris (4) CKD (chronic kidney disease) stage 3, GFR 30-59 ml/min Priority: Secondary Status: Chronic (5) COPD (chronic obstructive pulmonary disease) Priority: Secondary Status: Chronic Qualifiers: COPD type: unspecified COPD Qualified Code(s): J44.9 - Chronic obstructive pulmonary disease, unspecified (6) Diastolic CHF Priority: Secondary Status: Chronic Qualifiers: Congestive heart failure chronicity: chronic Qualified Code(s): I50.32 - Chronic diastolic (congestive) heart failure (7) Hypertension Priority: Secondary Status: Chronic Qualifiers: Hypertension type: essential hypertension Qualified Code(s): I10 - Essential (primary) hypertension (8) Insulin dependent diabetes mellitus Priority: Secondary Status: Chronic (9) Paroxysmal a-fib Priority: Secondary Status: Chronic (10) S/P MVR (mitral valve replacement) Priority: Secondary Status: Chronic - Discharge Medications Prescriptions: HYDROcodone/Acet 5/325 mg [[place] 5-325 mg] 1 tab PO Q4HR PRN #20 tablet PRN Reason: Pain Tamsulosin [Flomax] 0.4 mg PO DAILY #30 capsule Home Medications: Aspirin [Adult Low Dose Aspirin EC] 81 mg PO QAM 03/21/15 [History] Ferrous Sulfate 324 mg PO QPM 03/21/15 [History] Furosemide [Lasix] 40 mg PO BID 03/21/15 [History] Lisinopril [Zestril] 5 mg PO QAM 03/21/15 [History] Metoprolol [Lopressor] 50 mg PO BID 03/21/15 [History] Potassium Chloride [K-Tab ER] 10 meq PO QAM 03/21/15 [History] Pravastatin Sodium [Pravachol] 80 mg PO QPM 03/21/15 [History] Zinc Acetate [Galzin] 50 mg PO QAM 03/21/15 [History] Glucagon,Human Recombinant [Glucagon Emergency Kit] 1 mg IJ ONCE PRN 04/18/16 [ History] Insulin LISPRO [Humalog Kwikpen U-100] 10 unit SQ TIDWM 04/18/16 [History] Metolazone [Zaroxolyn] 2.5 mg PO Q48H 04/18/16 [History] Multivitamin [Multi-Day Vitamins] 1 each PO DAILY 04/18/16 [History] HYDROcodone/Acet 5/325 mg [[place] 5-325 mg] 1 tab PO Q4HR PRN #20 tablet [Rx] Insulin Glargine,Hum.rec.anlog [Lantus Solostar] 10 unit SQ HS #0 05/08/16 [Rx] Tamsulosin [Flomax] 0.4 mg PO DAILY #30 capsule 05/08/16 [Rx] Allergies/Adverse Reactions: Allergies clopidogrel [From Plavix] Adverse Reaction (Verified 04/18/16 15:19) Itching Date of admission: 04/18/16 18:08 Primary care physician: Rambo Lama Consults: 04/18/16 20:49 Consult to Nutrition [CONS] Routine Comment: Consulting Provider: NUTRITION Reason for Dietary Consult: MST Score Consult to Special Education Coordinator [CONS] Routine Reason for SW Consult: Pt requesting for potentional aid from social security due to vision loss. 04/18/16 21:00 Consult to Pulmonology [CONS] Routine Consulting Provider: [facility] [place] Reason for Consult: hydropneumothorax Call Completed: No 04/19/16 09:48 Consult to Thoracic Surgery [CONS] Routine Consulting Provider: Cardiothoracic Surgery [place] Reason for Consult: Hydropneumothorax, s/p chest tube placement, for tube management and evaluation for thoracotomy Call Completed: No 04/23/16 07:57 Consult to Nephrology [CONS] Routine Consulting Provider: Kidney [facility] HTN [facility] Reason for Consult: increased creatinine Call Completed: Yes 04/24/16 09:48 Consult to Urology [CONS] Routine Consulting Provider: [facility] Reason for Consult: SHELIA/CKD. Renal US PVR 334cc, prostamegaly Time Notified: 09:45 Call Completed: Yes 03/06/17 09:20 Consult to Physical Therapy [CONS] Routine Comment: Evaluate, develop and implement POC Discharging clinician: Elle Phan Anticipated date of discharge: 05/08/16 - Patient Status Disposition: Transfer SNF Condition: Fair Functional capacity at discharge: uses cane/walker Overall status at discharge: patient is progressing back to baseline - Discharge Instructions Instructions: Hydrocodone/Acetaminophen (By mouth), Tamsulosin (By mouth), Thoracotomy (DC), Cigarette Smoking and Your Health (GEN) Follow Up With: Anderson Bustillo MD [Partnered Physician] - 05/10/16 9:15 am Gela Nazario MD [Partnered Physician] - 05/16/16 1:40 pm Amauri Lama MD [Partnered Physician] - (PATIENT IS GOING TO [facility]) Additional Instructions: F/up with [facility] for Cash catheter removal - Diet and Activity Activity: as per physical therapy Diet: diabetic diet, low fat, low cholesterol, low salt diet Hospital course: Mr. Silver is a 75 year old male with above medical problems who was admitted with severe shortness of breath along with right-sided chest pain. Chest x-ray and CT chest done in the emergency room showed right-sided hydropneumothorax and received chest tube placement in the emergency room with drainage of 1 L of straw-colored fluid. 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 Cardiothoracic surgery was consulted and patient underwent right posterolateral thoracotomy with partial decortication and chemical pleurodesis. The patient was noted to have urinary retention for which he received Cash catheter and is being discharged on this with outpatient urology follow-up. He was also started on Flomax. Patient had acute on chronic renal failure while in the hospital and his diuretics and KRISTIN inhibitor were held initially. His renal function improved with Cash catheterization and IV hydration and his home medications were gradually reintroduced. His kidney function is currently normal based on his BMP and it is unclear if he really has a diagnosis of chronic kidney disease, which has been documented in his chart. Physical therapy evaluation was completed and patient is recommended inpatient rehabilitation prior to being discharged home. He had a prolonged hospital stay waiting for rehabilitation placement. He is currently medically stable for discharge. - Time Spent with Patient Total time spent providing and/or coordinating discharge services: Greater than 30 minutes (50 min) - Constitutional Vitals: Temp Pulse Resp BP Pulse Ox 97.7 F 97 14 124/68 93 L 05/08/16 12:10 05/08/16 12:10 05/08/16 12:10 05/08/16 12:10 05/08/16 12:10 General appearance: Present: A&O X 3, obese, answers questions appropriately - Respiratory Respiratory exam: Present: decreased breath sounds (at right base), CTAB. Absent: accessory muscle use, rales, rhonchi, wheezes Additional comments: healing surgical incision from thoracotomy on right posterolateral chest wall, with surrounding induration, ecchymosis and tenderness - VTE Documentation of Mechanical Device: Intermittent pneumatic compression device
--- NOTE | 2016-05-08 12:55 | Physician Discharge Referral ---
ExtendedCare Referral Info Transfer To: [facility] Provider in Charge: Elle Phan Provider in Charge after Transfer: PCP Institutional Level of Care: Intermediate - MR - Diagnosis (1) Hydropneumothorax Priority: Primary Status: Acute (2) Pflmo-ue-wopmdgk kidney injury Priority: Primary Status: Resolved (3) CAD (coronary artery disease) Priority: Secondary Status: Chronic (4) CKD (chronic kidney disease) stage 3, GFR 30-59 ml/min Priority: Secondary Status: Chronic (5) COPD (chronic obstructive pulmonary disease) Priority: Secondary Status: Chronic (6) Diastolic CHF Priority: Secondary Status: Chronic (7) Hypertension Priority: Secondary Status: Chronic (8) Insulin dependent diabetes mellitus Priority: Secondary Status: Chronic (9) Paroxysmal a-fib Priority: Secondary Status: Chronic (10) S/P MVR (mitral valve replacement) Priority: Secondary Status: Chronic Expected Duration of Placement: 2 weeks Prognosis: Fair Aware of Diagnosis: Patient Aware of Prognosis: Patient - Transfer Medications Prescriptions: HYDROcodone/Acet 5/325 mg [[place] 5-325 mg] 1 tab PO Q4HR PRN #20 tablet PRN Reason: Pain Tamsulosin [Flomax] 0.4 mg PO DAILY #30 capsule Home Medications: Aspirin [Adult Low Dose Aspirin EC] 81 mg PO QAM 03/21/15 [History] Ferrous Sulfate 324 mg PO QPM 03/21/15 [History] Furosemide [Lasix] 40 mg PO BID 03/21/15 [History] Lisinopril [Zestril] 5 mg PO QAM 03/21/15 [History] Metoprolol [Lopressor] 50 mg PO BID 03/21/15 [History] Potassium Chloride [K-Tab ER] 10 meq PO QAM 03/21/15 [History] Pravastatin Sodium [Pravachol] 80 mg PO QPM 03/21/15 [History] Zinc Acetate [Galzin] 50 mg PO QAM 03/21/15 [History] Glucagon,Human Recombinant [Glucagon Emergency Kit] 1 mg IJ ONCE PRN 04/18/16 [ History] Insulin LISPRO [Humalog Kwikpen U-100] 10 unit SQ TIDWM 04/18/16 [History] Metolazone [Zaroxolyn] 2.5 mg PO Q48H 04/18/16 [History] Multivitamin [Multi-Day Vitamins] 1 each PO DAILY 04/18/16 [History] HYDROcodone/Acet 5/325 mg [[place] 5-325 mg] 1 tab PO Q4HR PRN #20 tablet [Rx] Insulin Glargine,Hum.rec.anlog [Lantus Solostar] 10 unit SQ HS #0 05/08/16 [Rx] Tamsulosin [Flomax] 0.4 mg PO DAILY #30 capsule 05/08/16 [Rx] Allergies/Adverse Reactions: Allergies clopidogrel [From Plavix] Adverse Reaction (Verified 04/18/16 15:19) Itching - Respiratory Orders Smoking Cessation: Smoking cessation has been advised. For more information, call the [place] Tobacco Quit Line at 8-663-GOJS-NOW. - Advance Directives Code Status: DNR-Arrest/Don't Intubate - Mobility Orders Ambulate - Rehabiliation Orders Rehab Potential: Good Rehab Orders: ROM Exercises, Evaluation for Physical Therapy, Evaluation for Occupational Therapy - Diet Orders No Concentrated Sweets (diabetic), Cardiac CERTIFICATION: I certify that the transfer of the above named patient to an Extended Care Facility is necessary for the continuing treatment of the diagnosis listed. The above information is true and accurate reflection of patient's current condition. Confidential - Redisclosure prohibited without a patient's written consent.
== END 2016-05-08 15:50 | DRG 163 ==
LOC: EMEROO 15:16 → 2NNU 18:08 → SUATTDRO 18:08 → 2NNU 19:57 → ICNU 04-26 08:44 → 2NNU 04-27 20:05
PROVIDERS: ADMIT Pediatrics; ATTEND Internal Medicine